=== PATIENT | female | born 1935 | race Caucasian/White ===

== ENCOUNTER → 2016-07-08 | Outpatient (CLI) | payer OTHER | LOC: BMCIMAGING 11:18 | DX: Z12.31 Encounter for screening mammogram for malignant neoplasm of breast (principal) | CPT/HCPCS: G0202 ==

== ENCOUNTER → 2017-03-03 | Outpatient (CLI) | payer OTHER | LOC: BMCIMAGING 13:24 | PROVIDERS: ATTEND Internal Medicine | DX: J44.9 Chronic obstructive pulmonary disease, unspecified (principal) ==

== ENCOUNTER 2017-07-20 13:33 | Inpatient (IN) | payer OTHER ==
--- NOTE | 2017-07-20 14:23 | EDPHY ---
General - History Smoking Status: Never smoked Time Seen by Provider: 07/20/17 14:06 Narrative: CHIEF COMPLAINT: Fall, head injury, hip pain HISTORY OF PRESENT ILLNESS: Patient presents with friends at bedside. She reports that she was walking in her driveway after returning from the store. She says she tripped on a CT, landing on the concrete. She says she landed on her back, right hip and and then her head. She denies any loss of consciousness, headache, neck pain, chest , back or abdominal pain. She does have a laceration to the right scalp that she did not notice until the blood was dripping. She has mild right hip pain but has ambulated with her friends without difficulty, per friends at bedside. She has no nausea or vomiting. She has no visual disturbance. She has no pain in the extremities. Tetanus is up-to-date. No other associated complaints or modifying factors. REVIEW OF SYSTEMS: Ten systems reviewed and are negative unless otherwise noted in the HPI PCP: Dr. Quita Gutierrez SPECIALISTS: Rheumatology PAST MEDICAL HISTORY: Severe Rheumatoid arthritis, hypertension PAST SURGICAL HISTORY: No recent surgeries SOCIAL HISTORY: Never smoker. Lives here independently. FAMILY HISTORY: Noncontributory EXAMINATION General Appearance: Alert, no distress Head: normocephalic. Right parietal scalp laceration and abrasion with hematoma. No depression. No Rajan sign. No raccoon eyes. Eyes: Pupils equal and round, no conjunctival pallor or injection. EOMs symmetric. ENT, Mouth: Mucous membranes moist Neck: Normal inspection, supple, no bony tenderness. No crepitus. Respiratory: Lungs are clear to auscultation Cardiovascular: Regular rate and rhythm. No murmur Gastrointestinal: Abdomen is soft and nontender Back: non-tender, no bony abnormalities Neurological: GCS 15. A&O, nonfocal, strength is symmetric in all 4 limbs. Skin: Warm and dry, right parietal scalp laceration measuring 3 cm. No exposure of the galea. No foreign body. No pulsatile bleeding. Extremities: Significant swan neck deformities of both hands. Nodular changes of the extremities consistent with her rheumatoid arthritis. Range of motion of the upper and lower extremities are symmetric without difficulty or hesitation. There is no point tenderness of the shoulders, elbows, wrists, hips , ankles or knees. Psychiatric: Mood and affect normal DIFFERENTIAL DIAGNOSES: Including but not limited to intracranial hemorrhage, subdural hematoma, concussion, scalp laceration, sprain, strain, fracture, dislocation MDM: 2:20 p.m. Mechanical fall just prior to arrival with closed head injury, right parietal hematoma and superficial laceration. Tetanus is reportedly up-to-date. She is in no acute distress with a normal neuro examination. I have ordered CT scans of the head cervical spine. I have ordered a hip x-ray. She is in no acute distress. We will irrigate the laceration re-evaluate for the possibility of needing closure 3:00 p.m. Patient re-evaluated. She is alert to person but disoriented to location. No focal findings otherwise. 3:40 p.m. Notified by radiologist Dr. Crook. Findings from the CT scan of the head were discussed, including subdural subarachnoid hemorrhage. I had already reviewed these images and contacted Neurosurgery and neurosurgery will evaluate the patient shortly. I have re-evaluated the patient this time. The scalp laceration has been irrigated and there is no repairable wound. This is a large area of superficial abrasion but no puncture laceration. 3:[address] Rosen is at bedside. He has evaluated the patient and reviewed the images. He feels that the cervical spine findings are not necessarily acute and has verbalized that the patient may be placed in a soft collar for comfort if needed. He feels the patient will need at least a step-down unit bed for frequent neuro checks. He reports that the patient is now disoriented to location but follows commands well with no other focal findings. 4:[address] Partida is evaluating the patient. 4:[address] Partida has evaluated the patient and reviewed the images. He does not feel the patient has any orthopedic fractures clinically. He feels the patient is appropriate for neurosurgery admit with trauma consultation. 4:25 p.m. Notified by RN that the patient's pressure has increased to systolic greater than 200 with diastolic greater than 100. I discussed this with neurosurgery PA as well as the admission. Neurosurgery PA has agreed to admit the patient to their service and has requested Cardene drip, titrate for systolic of 140 mm mercury. I have changed the bed orders to reflect this and I have ordered a Cardene drip. I initially thought the patient be appropriate for Step-Down Unit , but I have been notified by the [facility] that the patient will need an ICU bed. She has been admitted in stable condition on a quality assurance monitor with Cardene be initiated at this time. SUPERVISION: Patient was independently examined, but I discussed the case with my secondary supervising physician Dr. Tyler (Kevon Macias) Medical Decision Makin:50 p.m. I discussed the case with Dr. Vick from Orthopedics who will consult. The patient will be weight-bearing as tolerated for now. (Nelson Tyler) - Diagnostics Imaging Results: Imaging Impressions Cervical Spine CT 07/20/17 14:23 Impression: 1. Equivocal nondisplaced avulsion fracture from the right inferior articular facet of C3 (the left C3 and C4 facets are fused). 2. Multilevel degenerative changes and spondylolistheses as above, with apparent severe spinal canal narrowing at C2-C3, with possible cord compression. MRI is recommended for further evaluation. 3. Carotid atherosclerosis. 4. Additional findings as above. Findings discussed with Kevon Macias PA-C on July 20, [address] 07/20/17 14:23 Impression: 1. 2.3 cm intraparenchymal hemorrhage in the left temporal lobe. 2. Moderate left subarachnoid hemorrhage most prominent in the left temporal lobe. 3. Small left frontotemporal subdural hematoma extending over the tentorium, measuring up to 4 mm without midline shift. 4. Additional findings as above. Findings discussed with Kevon Macias on 07/20/2017 at 15:47. Hip X-Ray 07/20/17 14:25 Impression: 1. Nondisplaced fractures suspected right inferior pubic ramus and possibly right superior pubic ramus adjacent to the acetabulum. 2. Left total hip replacement in good position and alignment. 3. Pseudoarticulation left transverse process of L5 with the upper sacrum. Findings discussed with Kevon Macias PAC at 14:57 hour, 07/20/2017. Pelvis CT 07/20/17 14:59 Impression: Nondisplaced fracture right inferior pubic rami and question subtle buckle fracture in the superior pubic rami. Other chronic findings as above. Results discussed with Dr. Nelson Tyler on 20 Jul 2017 at 1550 hours. - Objective Vital Signs: Initial Vital Signs Temperature (C) 37.1 C 07/20/17 13:41 Heart Rate 93 07/20/17 13:41 Respiratory Rate 18 07/20/17 13:41 Blood Pressure 166/96 H 07/20/17 13:41 O2 Sat (%) 93 07/20/17 13:41 O2 Delivery Mode Room Air Allergies/Adverse Reactions: No Known Allergies Allergy (Unverified 07/20/17 13:40) Home Medications: Medication Instructions Recorded Lisinopril [Zestril 10 mg (*)] 10 mg PO DAILY 07/20/17 predniSONE 5 mg PO DAILY 07/20/17 Laboratory Results: Laboratory Results 07/20/17 15:55 07/20/17 15:55 07/20/17 07/20/17 07/20/17 15:55 15:55 15:55 WBC 20.26 10^3/uL H 10^3/uL (3.80-9.50) RBC 4.18 10^6/uL 10^6/uL (4.18-5.33) Hgb 12.9 g/dL g/dL (12.6-16.3) Hct 38.7 % % (38.0-47.0) MCV 92.6 fL fL (81.5-99.8) MCH 30.9 pg pg (27.9-34.1) MCHC 33.3 g/dL g/dL (32.4-36.7) RDW 15.3 % H % (11.5-15.2) Plt Count 293 10^3/uL 10^3/uL (150-400) PT 13.1 SEC SEC (12.0-15.0) INR 0.97 (0.83-1.16) APTT 23.4 SEC SEC (23.0-38.0) Sodium 140 mEq/L mEq/L (135-145) Potassium 3.9 mEq/L mEq/L (3.3-5.0) Chloride 101 mEq/L mEq/L (97-110) Carbon Dioxide 25 mEq/l mEq/l (22-31) Anion Gap 14 mEq/L mEq/L (8-16) BUN 20 mg/dL mg/dL (7-23) Creatinine 0.5 mg/dL L mg/dL (0.6-1.0) Estimated GFR > 60 Glucose 105 mg/dL H mg/dL (70-100) Calcium 9.4 mg/dL mg/dL (8.5-10.4) Medications Given: Nicardipine/Sodium Chloride (Cardene 0.1 Mg/Ml (Premix)) 200 mls @ 0 mls/hr IV CONT SAMANTHA; Titrate PRN Reason: Protocol Stop: 01/16/18 16:29 Last Admin: 07/20/17 16:41 Dose: 200 mls Departure - Departure Disposition: [facility] Acute Clinical Impression: Traumatic subarachnoid hemorrhage Qualifiers: Encounter type: initial encounter Loss of consciousness presence/duration: without LOC Qualified Code(s): S06.6X0A - Traumatic subarachnoid hemorrhage without loss of consciousness, initial encounter Traumatic subdural hematoma Qualifiers: Encounter type: initial encounter Loss of consciousness presence/duration: without LOC Qualified Code(s): S06.5X0A - Traumatic subdural hemorrhage without loss of consciousness, initial encounter Fall Qualifiers: Encounter type: initial encounter Qualified Code(s): W19.XXXA - Unspecified fall, initial encounter Hypertension Qualifiers: Hypertension type: unspecified Qualified Code(s): I10 - Essential (primary) hypertension Condition: Fair
[2017-07-20] MEDS ORDERED: MAGNESIUM HYDROXIDE 30 ML UDCUP PO PRN (16:20)
[2017-07-20] MEDS ORDERED: ACETAMINOPHEN 325 MG TAB PO PRN (16:20)
[2017-07-20] MEDS ORDERED: ONDANSETRON 4 MG/2 ML VIAL IVP PRN (16:20)
[2017-07-20] MEDS ORDERED: POLYETHYLENE GLYCOL 3350 17 GM PKT PO PRN (16:20)
[2017-07-20] MEDS ORDERED: ONDANSETRON DISINTEGRATING 4 MG TAB PO PRN (16:20)
[2017-07-20] MEDS ORDERED: BISACODYL 10 MG SUPP PR PRN (16:20)
[2017-07-20] MEDS ORDERED: LACTULOSE 20 GM/30 ML UDCUP PO PRN (16:20)
[2017-07-20] MEDS ORDERED: NS 1,000 ML IV SCH (16:30)
[2017-07-20] MEDS ORDERED: niCARdipine/NACL 200 ML IV SCH (16:30)
[2017-07-20 16:46] LABS: INR 0.97 (0.83-1.16); PROTIME(PATIENT) 13.1 SEC (12.0-15.0)
--- NOTE | 2017-07-20 16:47 | GCON ---
[f rep st] CONSULTATION CHIEF COMPLAINT: Confusion. PRESENT ILLNESS: This 82-year-old female tripped over her neighbor's cat, landed on her back and her head, and sustained a closed head injury. A CT scan at [facility] reveals moderatel y significant subarachnoid hemorrhage, particularly left temporal lobe. The patient is conversive an d fluent; however, is having some degree naming objects or retrieving particular facts. She is [place] as to the month, date, and year, but cannot identify the facility as [facility], and when confronted with my pen, could not name the object or describe what it was used for. She has already been seen by Neurosurgery who will admit her. There was initially a question of a concomita nt pelvic fracture read by the radiologist. PAST MEDICAL HISTORY: Relevant for use of aspirin but no other anticoagulant and she has a long list of medications. PHYSICAL EXAM: GENERAL: A pleasant, conversive female. HEENT: [place], EOMI, tongue protrudes in the midline. NECK: I took her C-collar off as her neck is completely nontender. She denies pain, and b y palpation, I could not elicit any pain. LUNGS: Clear. HEART: Normal S1, S2. CHEST WALL: Stable to compression. Sternum stable to compression. No supraclavicular nor axillary crepitance. EXTREM ITIES: Upper extremities are remarkable for severe deformities in both hands from rheumatoid arthrit is. ABDOMEN: Soft, benign. No masses. No tenderness. PELVIS: Stable, particularly the right sup erior pubic ramus area is palpated. The ischial spines were palpated. The pelvis is compressed in e very direction I can, eliciting zero pain. The patient moves both legs freely and holds them against resistance. I do not believe the fractures identified by the radiologist are true fractures. ASSESSMENT: Isolated closed head injury in an elderly female, only on aspirin as an anticoagulant. RECOMMENDATIONS: Admission and treatment per Neurosurgery. The General Surgical Service has little to add in this case. /[id number]/MODL
--- NOTE | 2017-07-20 17:43 | GHP ---
[f rep st] HISTORY AND PHYSICAL DATE OF ADMISSION: 07/20/2017 Patient seen in the emergency department, both by myself and Dr. Rosen, at 1548 in Room 8 at [facility] on 07/20/2017. CHIEF COMPLAINT: Spinal head injury with hip pain. HISTORY OF PRESENT ILLNESS: The patient is an 82-year-old female who presents to the emergency department. She was walking in her driveway after returning from a store. Her son says that she was trying to feed a neighborhood cat when she tripped and landed on the concrete. She states that she landed on her back , right hip, and then her head. There was no loss of consciousness, and she denies any headache or neck pain. No chest pain, back pain, or abdominal pain. She does have a laceration in the right scalp that was repaired via emergency room staff. She also complains of some right hip pain. Per her friends at her bedside, there was no loss of consciousness. She has no nausea or vomiting. No changes in her vision. She is moving all of her extremities. She does have a significant history for rheumatoid arthritis. Her immunizations are up to date. Patient denies any upper extremity or lower extremity complaints of numbness, tingling, or weakness. She was awake and alert. REVIEW OF SYSTEMS: Complete 10-point review of systems is negative, otherwise noted in the HPI. PRIMARY CARE PROVIDER: Quita Gutierrez MD. PAST MEDICAL HISTORY: Significant for: 1. Rheumatoid arthritis. 2. Hypertension. PAST SURGICAL HISTORY: No recent surgeries listed. MEDICATIONS: Please see med reconciliation form. ALLERGIES: No known drug allergies. FAMILY HISTORY: Reviewed. Noncontributory. SOCIAL HISTORY: Patient is 82 years of age. She is . She lives here in [place]. PHYSICAL EXAMINATION: GENERAL: This is an awake, alert, oriented female, in no acute distress. VITAL SIGNS: Most recent vital signs, blood pressure 218/ 96 with a MAP of 136, heart rate of 108, 91% on room air, temperature 36 degrees. HEENT: Head is normocephalic, atraumatic except for laceration noted to the right scalp. Pupils are equal, round, and reactive to light. EOMI is intact. Full visual pfeiffer by confrontation. Ears are patent. Nose is patent. NECK: Soft and supple. No midline tenderness. Range of motion was not tested due to collar in place. RESPIRATORY and CARDIAC: Deferred. ABDOMEN : Soft, nontender. No peritoneal signs. and RECTAL: Deferred. NEURO: Patient is awake, alert, oriented to name and date, as well as year, but not to the name of her location at [facility]. Cranial nerves 2-12 are grossly intact. Motor: Patient has 5/5 strength in all muscle groups of bilateral upper and lower extremities, to include deltoids, biceps, triceps, brachioradialis, wrist flexion and extensors, golf shoe spike assembler, intrinsic fingers, iliopsoas , quadriceps, hamstring, plantar flexion, dorsiflexion, EHL testing. Sensation is intact to light touch throughout all dermatome distributions upper and lower extremities. Negative straight leg raise. Negative BART test. Reflexes of biceps, triceps, brachioradialis, knee jerk, and ankle jerk, 2+/4. Toes are downgoing bilaterally. MEDICAL DECISION MAKING/DIAGNOSTIC STUDIES: Laboratory tests obtained, 2017, shows a white count of 20.26 with an H and H of 12.9 and 38.7, platelet count of 293. Coags are pending. Chemistry on 07/20/2017: Sodium 140, potassium 3.9, chloride 101, CO2 25. BUN 20, creatinine 0.5, and a glucose of 105. IMAGING: CT scan of the cervical spine obtained 07/20/2017 shows an equivocal, nondisplaced avulsion fracture of the right inferior articular facet of C3. The left C3 and C4 facets are fused. Multilevel degenerative changes and spondylolisthesis noted. There is also spinal canal narrowing at C2-3. Noted carotid arterial sclerosis. CT scan of the head, obtained 07/20/2017, shows a 2.3 cm intraparenchymal hemorrhage in the left temporal lobe. There is moderate left subarachnoid hemorrhage, most prominent left temporal lobe. Small left frontotemporal subdural hematoma, extending of the tentorium, measuring up to 4 mm without midline shift. Hip x-ray obtained 07/20/2017 shows a nondisplaced fracture suspected of the right inferior pubic ramus and possibly right superior pubic ramus, adjacent to the acetabulum, status post left total hip replacement. CT scan of the pelvis, obtained 07/20/2001, shows nondisplaced fracture of the right inferior pubic rami and questionable subtle buckle fracture of the superior pubic rami. Pending repeat CT scan brain in am. ASSESSMENT: 1. Mechanical trip and fall. 2. History of severe rheumatoid arthritis. 3. History of hypertension. 4. Nondisplaced fractures of the right inferior pubic rami and questionable subtle buckle fracture of the superior pubic rami. 5. A CT scan of the cervical spine demonstrating possible nondisplaced avulsion fracture of C3 with noted C2-3 stenosis and fusion of C3-4. 6. 2.3 cm intraparenchymal hemorrhage left temporal lobe, moderate left subarachnoid hemorrhage, most prominent left temporal lobe. Small left frontotemporal subdural hematoma. PLAN/DISCUSSION: The patient is an 82-year-old female who will be admitted to Neurosurgery. She was seen and evaluated in the emergency department by Dr. Partida as well. She has a 2.3 cm intraparenchymal hemorrhage and a small left frontal temporal subdural hematoma. I recommended q.1 hour neuro checks. Repeat a CT scan in the a.m. per Dr. Rosen. No Keppra is warranted at this time. Patient does have equivocal fracture of C3. She was placed in a cervical collar, at least overnight. Soft collar per Dr. Rosen's recommendation. She also has pubic rami fractures that will be evaluated by Dr. Partida. Will admit her to the ICU with q.1 hour neuro checks. Recheck a CT scan in the a.m., sooner if neuro status changes. She will continue with a collar. We will place her on Cardene to keep her blood pressure less than 140. All questions and concerns were answered. She understands and agrees. Patient was seen by myself and Dr. Rosen in the emergency department at 1548 on 10/20/2017. Her son was present during the examination history. /[id number]/MODL MTDD
[2017-07-20 17:46] LABS: PLATELET COUNT 180 10^3/uL (150-400)
--- NOTE | 2017-07-20 21:49 | GCON ---
[f rep st] CONSULTATION INTERNAL MEDICINE CONSULTATION DATE OF CONSULTATION: 07/20/2017 REFERRING PHYSICIAN: Jimenez Beck PA-C REASON FOR CONSULTATION: Medical opinion regarding blood pressure management in the setting of intra parenchymal hemorrhage. HISTORY: Patient is an 82-year-old female with severe rheumatoid arthritis, although she lives indep endently and does very well at baseline. 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 Walking back up her driveway t o her home from the grocery store, she tripped over her neighbor's cat landing on her back and then h itting her right hip and her head. She denies any loss of consciousness. She did have a laceration to her right scalp, but that was irrigated in the emergency room, and no sutures were needed, and it is just a superficial abrasion. Her head CT, however, shows subdural hematoma with subarachnoid hemo rrhage and intraparenchymal hemorrhage. According to her son, who was at bedside, she is not at her baseline mental status and he is noticing some expressive aphasia and memory changes. She is current ly retaining 700 cc of urine in her bladder, and she may get a Perez catheter here shortly. She is o n an IV Cardene drip for blood pressure control and going to ICU. She is in a soft cervical collar p er Neurosurgery. She is otherwise without complaint. PAST MEDICAL HISTORY: 1. Severe rheumatoid arthritis. She follows with Dr. Moser. She gets regular infusions in his offic e. 2. Hypertension. MEDICATIONS: Please see computer for full detailed list. ALLERGIES: No known drug allergies. SOCIAL HISTORY: No smoking. Occasional alcohol. She lives in a condominium alone. Her son lives 2 blocks away. Very functional and independent at baseline. REVIEW OF SYSTEMS: Complete review of systems obtained. Review of systems negative on constitutiona l, HEENT, GI, pulmonary, cardiovascular, , hematology, skin, muscular, endocrine, psych except for positives and negatives as noted in HPI. FAMILY HISTORY: Reviewed, noncontributory to presenting complaint. PHYSICAL EXAMINATION: GENERAL: Well-developed, well-nourished female, in no acute distress. VITAL SIGNS: Temperature 37.1, pulse 108, blood pressure 218/96, 92% on room air. EYES: Normal conjuncti vae. Pupils react to light. ENT: Normal ears, nose. Hearing intact. Normal teeth. Oropharynx mo ist. NECK: Trachea midline. No thyromegaly. CHEST: Normal respiratory effort. LUNGS: Clear to auscultation bilaterally. CARDIOVASCULAR SYSTEM: Tachycardic. No murmur. No lower extremity edema . ABDOMEN: Soft, nontender. No hepatosplenomegaly. SKIN: Warm, dry, intact. No rash. MUSCULOSK ELETAL: Severe RA changes to her bilateral hands. Strength is 5/5, upper and lower extremities. No rmal sensation. Cranial nerves intact. PSYCH: She is awake, alert, appropriate in conversation, pl easant, smiling but definitely with evidence of expressive aphasia. Getting frustrated trying to tel l me the story of what happened earlier today. LAB: White count 20.26, hematocrit 38.7, platelets 293. Sodium 140, potassium 3.9, chloride 101, bi carb 25, BUN 20, creatinine 0.5, glucose 105. Head CT shows a 2.3 cm intraparenchymal hemorrhage in the left temporal lobe also with evidence of subarachnoid hemorrhage and subdural hematoma. Cervical spine shows severe cervical spinal stenosis with possible cord compression. Pelvis CT shows a right inferior pubic ramus fracture. This case was discussed with Dr. Tyler in the emergency room [facility] consultations that have been placed. ASSESSMENT/PLAN: 1. Traumatic intraparenchymal hemorrhage with subdural hematoma and subarachnoid hemorrhage. The pa malaika is admitted to ICU with q.1 hour neuro checks. Repeat head CT scheduled for tomorrow morning. 2. Severe hypertension. She has been placed on IV Cardene drip. We can also resume her usual lisin opril. 3. Pubic ramus fracture. Orthopedic Surgery will see her in consultation. It is likely to be non o perative, and she will weight bear as tolerated. 4. Rheumatoid arthritis, on chronic prednisone as well as infusions regularly in the rheumatoid offi ce. She is therefore relatively immunosuppressed, although I do not see any evidence of infection at this time. 5. Equivocal C3 fracture. Per Neurosurgery, cervical spine findings may be chronic and not acute. She also has severe cervical spine stenosis with cord compression. They are currently recommending a soft collar. 6. Urinary retention, 700 cc currently in the bladder. We are going to give her 1 more attempt to u rinate. If she does not, we will place a Perez. This is concerning with evidence of possible cord c ompression, but Neurosurgery is aware. 7. Cognitive changes secondary to the acute bleed. She will need speech therapy for cognition. Thank you very much for this consultation. Internal Medicine will continue to follow her while she r millieins hospitalized. /[id number]/MODL
[2017-07-20] MEDS: SENNOSIDES/DOCUSATE SODIUM TAB PO SCH (21:56)
[2017-07-21 05:17] LABS: PLATELET COUNT 247 10^3/uL (150-400)
--- NOTE | 2017-07-21 07:54 | NEUSURGPN ---
Assessment/Plan: Assessment: 82 yr old female s/p fall with C3 facet fracture, left temporal contusion and pubic rami fracture Plan: -CT cervical spine demonstrates equivocal non-displaced avulsion fraction from right inferior articular facet of C3 (C3 and C4 facets are fused) -CT brain 07/20 demonstrates 2.3cm intraparenchymal hemorrhage in the left temporal lobe. CT brain 07/21 shows minimal increase of left temporal hemorrhage. Patient is neurologically stable with clear, oriented speech. -Will keep in soft collar for 8 weeks -PT/OT -Case management to eval for dispo options -Patient discussed with Dr Rosen -Please call neurosurgery with questions/concerns Subjective: Patient denies neck pain or UE symptoms Objective: AxO x3 VSS Clear speech CN 2-12 grossly intact 5/5 BUE, BLE-bilateral hand exam limited related to severe RA Neuro Check Frequency: per routine Urinary Catheter in Place: No - Physician Discussed Patient with : [facility] Physical Exam - Vitals, I&O, Labs I and O 07/20/17 07/21/17 07/22/17 05:59 05:59 05:59 Intake Total 492 Output Total 1 Balance 491 Weight 44.4 kg Intake: Oral (ml) 200 IV Infused (ml) 292 niCARdipine/NACL 200 ml @ 292 Titrate IV CONT SAMANTHA Rx#: [id number] Output: Liquid Stool (ml) 1 Toilet 1 Other: Number of Voids Toilet 2 Vital Signs Temp Pulse Resp BP Pulse Ox 36.7 C 77 14 114/44 L 94 07/21/17 00:00 07/21/17 06:00 07/21/17 06:00 07/21/17 06:00 07/21/17 06:00 Laboratory Results 07/21/17 04:20 07/21/17 04:20 ICD10 Worksheet Patient Problems: Problems Problem Status Onset Fall Acute Hypertension Acute Traumatic subarachnoid hemorrhage Acute Traumatic subdural hematoma Acute
[2017-07-21] MEDS: SENNOSIDES/DOCUSATE SODIUM TAB PO SCH ×2 (08:48→19:48)
[2017-07-21] MEDS: LISINOPRIL 10 MG TAB PO SCH (08:48)
[2017-07-21] MEDS: predniSONE 5 MG TAB PO SCH (08:48)
[2017-07-21] MEDS: HYDROCODONE/APAP 5/325 TAB PO PRN ×4 (08:51→23:53)
--- NOTE | 2017-07-21 11:30 | PDMN ---
Medical Necessity Medical necessity: est los>2mn for intraparenchymal hemorrhage and sm L frontal temporal SDH, equivocal C3 fx, spinal canal narrowing C2-3 pubic ramus fx, cognitive changes, and severe htn, s/p mechanical fall; admit to ICU, hourly neuro checks, cervical collar, IV Cardene gtt, and ST; per order and H&P, IM consult 07/20/17
--- NOTE | 2017-07-21 12:05 | ASMTCMCOM ---
CM Note CM Note Notes: Patient admitted after a mechanical fall. She has a pubic rami fracture (to be seen by surgery) and a nondisplaced C3 fracture, as well as an intraparenchymal hemorrhage of the left temporal lobe and a moderate left subarachnoid hemorrhage (followed by neurosurgery). She lives alone and is very well supported by her son Susi and his family. She will require rehab, in the form of SNF or inpatient acute. We will wait for evaluations to proceed with discharge planning. Date Signed: 07/21/2017 12:05 PM Electronically Signed By:Lindsay Mann RN
--- NOTE | 2017-07-21 12:16 | GCON ---
[f rep st] CONSULTATION ORTHOPEDIC CONSULTATION DATE OF CONSULTATION: 07/21/2017 REASON FOR CONSULTATION: Pelvic fracture. HISTORY OF PRESENT ILLNESS: This is an 82-year-old female who presented to the emergency department. States she tripped over a neighborhood cat while carrying groceries into her house, landing on her right side and hitting her head. She denies loss of consciousness, amnesia, headache, or neck pain. She is not complaining of any hip or pelvic pain this morning. She has been ambulating without assi stive devices. She denies numbness or tingling radiating down the lower extremity. Her son is at he r bedside and states that there is some difficulty with finding words, however, denies fevers, chills , nausea, vomiting, chest pain, shortness of breath. REVIEW OF SYSTEMS: Complete 10-point review of systems negative, otherwise noted in HPI. PAST MEDICAL HISTORY: Significant for rheumatoid arthritis and hypertension. PAST SURGICAL HISTORY: Includes a left hip hemiarthroplasty and a right total knee arthroplasty. MEDICATIONS: The patient does receive Rituxan infusions every 5 months for her rheumatoid arthritis. Other medications, please see the medication reconciliation form. ALLERGIES: None. FAMILY HISTORY: Noncontributory. SOCIAL HISTORY: Patient lives alone. . PHYSICAL EXAM: GENERAL: She is awake, alert, oriented x3. No acute distress. VITAL SIGNS: Stable . Currently, blood pressure is 126/55, heart rate 77, respiratory rate 14, 94% O2 saturation on room air. RESPIRATORY: She has easy, nonlabored breathing. ABDOMEN: Soft, nontender abdomen. MUSCULO SKELETAL: She is able to internally and externally rotate her hip to 45 of external and 40 of internet developer al while in a seated position without any pain. NEUROLOGICAL: She has sensation intact to light howard ch from L3-S1. Motor intact to EHL, FHL, tibialis anterior, gastrocsoleus. Has palpable DP and PT p ulses. No significant tenderness to palpation about the pelvis or hip. IMAGING: CT and x-ray consistent with nondisplaced inferior pubic ramus fracture and superior pubic ramus fracture extending into the anterior column of the acetabulum, incomplete and nondisplaced. Th e left hip hemiarthroplasty appears stable without fracture. ASSESSMENT AND PLAN: Acxbse-wozm-atns-old female with a mechanical fall with an intraparenchymal lef t temporal lobe hemorrhage, moderate left-sided subarachnoid hemorrhage, small left frontal temporal subdural hematoma, as well as nondisplaced avulsions of C3, with stenosis at C2-3 and a fusion at C3- 4. From an orthopedic standpoint, her fractures are a stable pattern. She may weightbear as tolerat ed. She is currently asymptomatic regarding these fractures. We will have her work with Physical Th erapy and ambulate as tolerated. Follow up with me in the office in 2-3 weeks. The patient and son understand and agree with the treatment plan. Questions were answered. /[id number]/MODL
--- NOTE | 2017-07-21 15:16 | HOSPPROG ---
Hospitalist Progress Note Assessment/Plan: #Traumatic IPH/SDH/SAH -minimal increase in hemorrhage, but clinically stable. Some expressive aphasia -cont PT/OT/speech #Hypertensive urgency -initially required Nicardipine. BP now stable on home Lisinopril #RA: on chronic steroids #Pubic ramus fracture: Dr Vick evaluated. Weight-bear as tolerated. FU in 2 weeks #Equivocal C3 fracture: soft collar x 8 weeks #Urinary retention: in ED. Now voiding on own #Diet: regular #DVT ppx: SCDs #Disp: cont inpatient admission for PT/OT. May need SNF at [place]. Plan discussed with son, Dr. Watkins and ICU team Subjective: per son, speech improved today Objective: Vital Signs Temp Pulse Resp BP Pulse Ox 36.5 C 99 18 108/56 L 97 07/21/17 12:00 07/21/17 12:00 07/21/17 12:00 07/21/17 12:00 07/21/17 12:00 Laboratory Results 07/21/17 04:20 07/21/17 04:20 07/20/17 07/21/17 07/22/17 05:59 05:59 05:59 Intake Total 492 Output Total 1 Balance 491 PT 13.1 SEC (12.0-15.0) 07/20/17 15:55 INR 0.97 (0.83-1.16) 07/20/17 15:55 - Time Spent With Patient Time Spent with Patient: greater than 35 minutes Time Spent with Patient: Greater than 35 minutes spent on this patients care, greater than 50% of time spent counseling, educating, and coordinating care regarding the above mentioned plan. - Physical Exam Constitutional: no apparent distress Eyes: PERRL Ears, Nose, Mouth, Throat: moist mucous membranes, other (soft collar in place) Cardiovascular: regular rate and rhythym Respiratory: no respiratory distress Gastrointestinal: normoactive bowel sounds Genitourinary: no bladder fullness, No blake in urethra Skin: warm Musculoskeletal: full muscle strength, other (swan-neck defomities of hands) Neurologic: AAOx3, CN II-XII Intact, other (expressive aphasia) Psychiatric: interacting appropriately ICD10 Worksheet Patient Problems: Problems Problem Status Onset Fall Acute Hypertension Acute Traumatic subarachnoid hemorrhage Acute Traumatic subdural hematoma Acute
[2017-07-22] MEDS: HYDROCODONE/APAP 5/325 TAB PO PRN (07:25)
--- NOTE | 2017-07-22 07:45 | NEUSURGPN ---
Assessment/Plan: Assessment: 82 yr old female s/p fall with C3 facet fracture, left temporal contusion and pubic rami fractures Plan: -CT cervical spine demonstrates equivocal non-displaced avulsion fraction from right inferior articular facet of C3 (C3 and C4 facets are fused) -recommend soft cervical collar for 8 weeks -CT brain 07/20 demonstrates 2.3 cm intraparenchymal hemorrhage in the left temporal lobe. CT brain 07/21 shows minimal increase of left temporal hemorrhage. Patient is neurologically stable with clear speech with word finding difficulty -Will check CT head this am-ordered and if stable may be able to transfer to floor -PT/OT/ST-CPM -Case management to eval for dispo options -Patient discussed with Dr Rosen -Please call neurosurgery with questions/concerns Subjective: Awkae and alert. NAD. Eating/drinking and voiding. No f/c/n/v/d. No olivarez/neck/ chest/abd or gu complaints. Objective: AxO x3, PERRLA/EOMI no droop VSS Clear speech but with continued word finding difficulty CN 2-12 grossly intact 5/5 BUE, BLE-bilateral hand exam limited related to severe RA Neuro Check Frequency: per routine Urinary Catheter in Place: No - Physician Discussed Patient with : [facility] Physical Exam - Vitals, I&O, Labs I and O 07/21/17 07/22/17 07/23/17 05:59 05:59 05:59 Intake Total 492 800 Output Total 1 2 Balance 491 798 Weight 44.4 kg Intake: Oral (ml) 200 800 IV Infused (ml) 292 niCARdipine/NACL 200 ml @ 292 Titrate IV CONT SAMANTHA Rx#: [id number] Output: Urine (ml) 2 Toilet 2 Liquid Stool (ml) 1 Toilet 1 Other: Number of Voids Toilet 2 3 Vital Signs Temp Pulse Resp BP Pulse Ox 37.0 C 73 21 H 85/23 L 95 07/21/17 19:05 07/22/17 04:00 07/22/17 04:00 07/22/17 04:00 07/22/17 04:00 Laboratory Results 07/21/17 04:20 07/21/17 04:20 ICD10 Worksheet Patient Problems: Problems Problem Status Onset Fall Acute Hypertension Acute Traumatic subarachnoid hemorrhage Acute Traumatic subdural hematoma Acute
[2017-07-22] MEDS: predniSONE 5 MG TAB PO SCH (10:46)
[2017-07-22] MEDS: LISINOPRIL 10 MG TAB PO SCH (10:47)
[2017-07-22] MEDS: SENNOSIDES/DOCUSATE SODIUM TAB PO SCH (10:47)
--- NOTE | 2017-07-22 14:29 | ASMTLACE ---
LACE Length of stay for Answers: 2 days current admission Acuity / Level of Answers: Yes Care: Did the patient have an inpatient admission? Comorbidities - select Answers: Other Notes: Traumatic subarachnoid all that apply hemorrhage # of Emergency department Answers: 1-2 visits in the last 6 months Score: 7 Date Signed: 07/22/2017 02:28 PM Electronically Signed By:Caridad Watkins LCSW
--- NOTE | 2017-07-22 15:34 | PDIAF ---
- Diagnosis Diagnosis: Intraparenchymal brain hemorrhage, traumatic, C3 fracture Code Status: Full Code - Medication Management Discharge Medications: Medications to Continue on Transfer Lisinopril [Zestril 10 mg (*)] 10 mg PO DAILY 07/20/17 [Last Taken Unknown] predniSONE 5 mg PO DAILY 07/20/17 [Last Taken Unknown] Acetaminophen [Tylenol 325mg (*)] 650 mg PO Q4HRS PRN tab 07/22/17 [Last Taken Unknown] Hydrocodone/APAP 5/325 [[place] 5/325 (*)] 1 - 2 tab PO Q4HRS PRN tab 07/22/17 [ Last Taken Unknown] Ondansetron Odt [Zofran Odt 4 mg (*)] 4 mg PO Q4HRS PRN tab 07/22/17 [Last Taken Unknown] Polyethylene Glycol 3350 [Miralax 17 gm (*)] 17 gm PO DAILY PRN pkt 07/22/17 [ Last Taken Unknown] Sennosides/Docusate Sodium [Senokot-S] 1 - 2 tab PO BID tab 07/22/17 [Last Taken Unknown] Discharge Medications: Refer to the Discharge Home Medication list for PRN reason. - Orders Services needed: Registered Nurse, Certified Instrumentation And Controls Technician, Master Agribusiness Professor , Physical Therapy, Occupational Therapy, Speech Language Pathologist Diet Recommendation: no restrictions on diet Diet Texture: Regular Texture Diet Activity/Weight Bearing Restrictions: Soft cervical collar for 8 weeks. Fall risk precautions Equipment: Soft cervical collar for 8 weeks - Follow Up Care Current Providers and Referrals: Bert Vick MD [Medical Doctor] - follow up in 2 weeks Qutia Gutierrez MD [Primary Care Provider] - As per Instructions
--- NOTE | 2017-07-22 15:35 | PDIAF ---
- Diagnosis Diagnosis: Intraparenchymal brain hemorrhage, traumatic, C3 fracture Code Status: Full Code - Medication Management Discharge Medications: Medications to Continue on Transfer Lisinopril [Zestril 10 mg (*)] 10 mg PO DAILY 07/20/17 [Last Taken Unknown] predniSONE 5 mg PO DAILY 07/20/17 [Last Taken Unknown] Acetaminophen [Tylenol 325mg (*)] 650 mg PO Q4HRS PRN tab 07/22/17 [Last Taken Unknown] Hydrocodone/APAP 5/325 [[place] 5/325 (*)] 1 - 2 tab PO Q4HRS PRN tab 07/22/17 [ Last Taken Unknown] Ondansetron Odt [Zofran Odt 4 mg (*)] 4 mg PO Q4HRS PRN tab 07/22/17 [Last Taken Unknown] Polyethylene Glycol 3350 [Miralax 17 gm (*)] 17 gm PO DAILY PRN pkt 07/22/17 [ Last Taken Unknown] Sennosides/Docusate Sodium [Senokot-S] 1 - 2 tab PO BID tab 07/22/17 [Last Taken Unknown] Discharge Medications: Refer to the Discharge Home Medication list for PRN reason. - Orders Services needed: Registered Nurse, Certified Rn Plastic Surgery, Master Travel Information Center Supervisor , Physical Therapy, Occupational Therapy, Speech Language Pathologist Diet Recommendation: no restrictions on diet Diet Texture: Regular Texture Diet Activity/Weight Bearing Restrictions: Soft cervical collar for 8 weeks. Fall risk precautions. Weight-bearing as tolerated on pelvic fracture Equipment: Soft cervical collar for 8 weeks - Follow Up Care Current Providers and Referrals: Bert Vick MD [Medical Doctor] - follow up in 2 weeks Quita Gutierrez MD [Primary Care Provider] - As per Instructions
--- NOTE | 2017-07-22 15:50 | PDDCSUM ---
Discharge Summary Discharge Summary: DISCHARGE DIAGNOSES: -status post mechanical fall with injuries -parenchymal intracranial hemorrhage, traumatic -facet fracture of C3 -pelvic fracture after a fall -gait instability - CONSULTANTS: Dr. Vick of Orthopedics Dr. Hermilo Rosen of Neurosurgery Dr. Alia Baeza of [facility] Medicine - hospital medicine service assume primary care after 2 days of hospitalization PROCEDURES: CT scans of head and cervical spine HOSPITAL COURSE SUMMARY: This patient is an 82-year-old woman who apparently tripped and fell on the day of admission. She has suffered injuries including intraparenchymal brain hemorrhage on the left, a facet fracture of the C3, and pelvic fracture which was stable and did not require any intervention. The patient at the time of her admission had an unremarkable neurologic exam, and did not develop any neurologic decompensation here. She had 3 CT scans of the head and during the time of her hospital stay there is no change in the intraparenchymal blood on those studies. Her cervical spine was felt to be overall stable but a soft collar is recommended for the next 8 weeks. In terms of her pelvic fracture, this was stable and she was okay for weight-bearing. She did bear some weight here with therapies but is still fairly debilitated in terms of walking due to pain and weakness. There been no signs of other acute illnesses. She has chronic rheumatoid arthritis which has been stable here. At this point she is felt medically stable for discharge from the acute care setting but needs ongoing rehabilitation. She will be transferred today to the inpatient rehabilitation unit at the [facility]. PENDING TEST RESULTS: None MEDICATION CHANGES: Addition of medicines as needed for pain and nausea FOLLOW-UP PLAN: Should be transferred today to the inpatient rehabilitation unit at [facility] There she will be under the care of the physiatry team along with the consultative internal medicine service CARE PLAN: It is recommended by the Neurosurgery team the patient uses soft cervical collar for 8 weeks Is recommended by the orthopedics team that the patient be weight-bearing as tolerated, and follow up with Dr. Bert Vick in 2 weeks Greater than 35 minutes bedside and care coordination time today
[2017-07-22 16:49] VITALS: BP 136/66
== END 2017-07-22 17:38 | DRG 964 ==
LOC: F2N 18:28
PROVIDERS: ADMIT Surgery; ATTEND Neurological Surgery
DX: S06.350A Traumatic hemorrhage of left cerebrum without loss of consciousness, initial encounter (principal); S32.501A Unspecified fracture of right pubis, initial encounter for closed fracture; S12.291A Other nondisplaced fracture of third cervical vertebra, initial encounter for closed fracture; S01.01XA Laceration without foreign body of scalp, initial encounter; W01.0XXA Fall on same level from slipping, tripping and stumbling without subsequent striking against object, initial encounter; I16.0 Hypertensive urgency; Y92.014 Private driveway to single-family (private) house as the place of occurrence of the external cause; M06.9 Rheumatoid arthritis, unspecified; R33.9 Retention of urine, unspecified; Z96.651 Presence of right artificial knee joint; Z96.642 Presence of left artificial hip joint; Z79.01 Long term (current) use of anticoagulants; Z79.82 Long term (current) use of aspirin
CPT/HCPCS: 92507-GN; 92523-GN; 97116-GP; 97161-GP; 97166-GO; 97530-GP; 97535-GO; G8978-GP-CJ; G8979-GP-CI; G8987-GO-CK; G8988-GO-CI; G9162-GN-CK; G9163-GN-CI; J2270; J2405; J7512

== ENCOUNTER 2017-07-22 18:10 | Inpatient (IN) | payer OTHER ==
[2017-07-22] MEDS ORDERED: ONDANSETRON DISINTEGRATING 4 MG TAB PO PRN (19:17)
--- NOTE | 2017-07-22 19:21 | PDOREHIP ---
Admission [facility] - Admission - 3 Day Assessment Period Admission Date/Day 1: 07/22/17 Day 2: 07/23/17 Day 3: 07/24/17 - Active Diagnoses Comorbidities and Co-existing Conditions at Admission: 32080. None of the Above - Skin Conditions Unhealed Pressure Ulcer (1 or more/Stage 1 or >)-Admission: 0. No
[2017-07-22] MEDS: SENNOSIDES/DOCUSATE SODIUM TAB PO SCH (20:43)
--- NOTE | 2017-07-22 20:45 | GHP ---
[f rep st] HISTORY AND PHYSICAL POST ADMISSION PHYSICIAN EVALUATION AND REHABILITATION TREATMENT PLAN DATE OF ADMISSION: 07/22/2017 DATE OF EVALUATION: 07/22/2017. TIME OF EVALUATION: 1835. REFERRING FACILITY: [facility]. IMPAIRMENT GROUP: 14.2. ETIOLOGIC DIAGNOSIS: Brain plus multiple fractures/amputation. DATE OF ONSET: 07/20/2017. REFERRING PHYSICIAN: Dr. Watkins. CONSULTING PHYSICIANS: She was seen in consultation by Orthopedic Surgery, Dr. Vick, Trauma Surgery, Dr. Partida, and Neurosurgery, Dr. Rosen. REHABILITATION DIAGNOSIS: Traumatic brain injury and cervical and pelvic fractures status post fall. DATE OF SURGERY: There was no surgery. HISTORY OF PRESENT ILLNESS: This patient is an 82-year-old woman who was admitted to [facility] on 07/20/2017 after a mechanical fall. She reports that she tripped over a neighbor's cat. She denies loss of consciousness. She was found to have a left temporal intraparenchymal hemorrhage and subdural hematomas in the left temporal and left frontotemporal areas. She had a nondisplaced avulsion fracture of the facet of C3 in the cervical spine, and imaging also showed spinal stenosis at C2 -3 and a fusion at C3-4. She had a right inferior pubic ramus fracture and possibly a fracture of the superior pubic ramus. The fractures were nonsurgical and she is to wear a soft cervical collar for 8 weeks or through September 13, 2017. She had an episode of urinary retention in the hospital but subsequently was able to void on her own. She had hypertension and initially was treated with nicardipine but subsequently was adequately controlled with her home lisinopril dose. She was found to be hypoxic and is on oxygen. STUDIES AND LABORATORIES IN THE HOSPITAL: The final head CT, done 07/22/2017, showed: 1. Left temporal lobe 24 x 18-mm intraparenchymal hemorrhage and surrounding edema. 2. Small left temporal lobe subdural hematoma. 3. Subarachnoid and hemorrhagic cortical contusions in the left frontal and parietal lobes. 4. Atrophy and moderate microvascular ischemic gliosis. 5. There was no new hemorrhage and no hydrocephalus, midline shift or herniation. Chest x-ray on 07/21/2017 showed mild cardiac enlargement and otherwise was without abnormality. There were advanced degenerative changes in the left shoulder. Pelvic and cervical CT scans showed the fractures discussed above. Hematology showed an elevated white count; white count was 20.26 on admission. On 07/21/2017 white count had improved to 14.77. There was no left shift. She had developed some anemia. Hemoglobin was 11.3, hematocrit was 33.7. Coagulation studies revealed normal PT and PTT. Serum chemistry on 07/21/2017 revealed normal renal function and electrolytes. Creatinine was low at 0.5, and calcium was slightly low at 8.1. PRECAUTIONS: She is a fall risk. She has orthopedic precautions with need for a soft cervical collar. ACTIVE COMORBIDITIES: She has no active tier 1, tier 2 or tier 3 comorbidities. PAST MEDICAL HISTORY: 1. Rheumatoid arthritis. 2. Hypertension. PAST SURGICAL HISTORY: She has had a right knee replacement and a left hip replacement. PREHOSPITAL MEDICATIONS: 1. Lisinopril 10 mg p.o. daily. 2. Prednisone 5 mg p.o. daily. 3. Infliximab which she reports she was taking approximately every 2 weeks and she thinks is next due on Tuesday. ALLERGIES: There are no known drug allergies. PSYCHOSOCIAL HISTORY: She lives alone. She has a local son. 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 She is a nonsmoker. She enjoys drinking an occasional beer. She reports that she lives in an apartment which she owns. There are no steps to enter in the front, but there are 4 steps up from the garage. FAMILY HISTORY: Noncontributory. REVIEW OF SYSTEMS: She denies pain. She denies cough or dyspnea, fevers or chills. She denies nausea, vomiting, constipation, or diarrhea. She denies dysuria or urinary frequency. She denies vision changes, difficulty swallowing , weakness, numbness or tingling in the extremities. She reports she has been up walking. She denies weight change. Otherwise, a 10-point review of systems is negative. PHYSICAL EXAMINATION: VITAL SIGNS: Blood pressure is 167/91, heart rate is 92 , respiratory rate is 16, oxygen saturation 91% on room air, temperature is 36.9 degrees centigrade. Her weight is 44.6 kg for a body mass index of 17.5. GENERAL: This is a frail-appearing elderly woman, underweight, sitting up in bed in a hospital gown, cooperative and in no acute distress. HEENT: Extraocular movements are intact. Pupils are equal, round, and reactive to light. Mucous membranes are moist. Dentition is in good condition. NECK: The neck is in a cervical collar. HEART: There is a regular rate and rhythm with no murmurs, rubs, or gallops. LUNGS: Clear to auscultation bilaterally. ABDOMEN: Soft, nontender, nondistended with normoactive bowel sounds and no hepatosplenomegaly. EXTREMITIES: There is no cyanosis, clubbing, or edema. She has marked ulnar deviation of the fingers and toes. Radial and dorsalis pedis pulses are 2+ bilaterally. NEUROLOGIC: She is alert and oriented to her general situation. She reports the date as July 17 but corrects herself to July 22. Cranial nerves II-XII are grossly intact. There is no focal weakness, though she has reduced use of her hands. Sensation is intact to light touch. Plantar reflex is indeterminate bilaterally. There is no pronator drift. She appears to have expressive aphasia with word substitution and word-finding difficulty. SKIN: There is a laceration on her right posterior scalp. Current level of function per the preadmission screen: Regarding diet, feeding, and swallowing, she was on a regular diet. She required setup in order to open containers. Dressing upper body and lower body required moderate assistance. Toileting required minimal assist for thoroughness and minimal assist for toilet transfer. She was continent of bowel. For transfers she required contact guard with voice cues. She used a front-wheeled walker. Balance seated was independent, and standing required contact guard with voice cues. Endurance was fair. She ambulated 50 feet with hand-held assist and contact guard to minimal assist. She was unsteady with narrow base of support and decreased stride length. She walked 100 feet with a front-wheeled walker and contact guard assist and voice cues. She had decrease in oxygen saturation levels with activity. Regarding communication, she was noted to have moderate expressive and receptive aphasia and she was noted to have impaired cognition. On review of the hospital chart today she ambulated 200 feet. Otherwise there are no significant differences from the preadmission screen. IMPRESSION: This is a frail 82-year-old woman with severe rheumatoid arthritis who suffered a fall with a traumatic brain injury and cervical spine and pelvic fractures. She presents with marked word-finding difficulty. She has hypoxia of unclear etiology. She has decreased balance and decreased ability to carry out activities of daily living such as toileting and dressing. She is fortunately pain free. She has rheumatoid arthritis and reports that she is due next week for an infusion of infliximab, which takes place typically at her sheet rock hanger's office. Her primary sheet rock hanger is Dr. Moser. She is appropriate for inpatient rehabilitation where she will receive PT and OT to optimize her mobility and activities of daily living and speech and language pathology regarding cognition and communication. Her goal is to return home with supportive services. For a safe discharge, it is anticipated that she will achieve modified independence for eating, dressing, grooming, bed mobility, transfers, and ambulation with the least restrictive device on level and unlevel surfaces for household distances. She may require a wheelchair for community distances. She will be able to manage her medications independently, and she will need to be able to call for assistance when at home. Depending on progress with cognitive function, she may require supervision initially upon discharge. She will have therapy with physical therapy, occupational therapy, and speech and language pathology for 60 minutes per day on 5-7 days of the week. Her expected duration of stay is 10-14 days. It is anticipated that upon discharge she will continue to benefit from home health services including nursing, speech and language pathology, a home health aide, occupational therapy, and physical therapy. Additionally, she may benefit from a brain injury support group. PLAN: 1. Debility status post fall, TBI and pelvic and C-spine fractures. PT and OT to optimize mobility and activities of daily living to the independent or modified independent level. 2. Cognitive and communication deficits due to traumatic brain injury. Assessment and treatment per Speech and Language Pathology. 3. Hypertension was adequately managed in the hospital on lisinopril. She is markedly hypertensive upon admission to inpatient rehabilitation. She is denying pain. On reviewing hospital chart she appears to have been voiding normally, so urinary retention is unlikely to contribute. Will monitor blood pressures serially and if blood pressure remains significantly elevated we will increase lisinopril first, and, second, consider the addition of other antihypertensives. 4. Rheumatoid arthritis with considerable debility. Continue prednisone. Use of infliximab will be discussed further with her sheet rock hanger Dr. Moser after the weekend and it will be determined whether and how she would continue to receive it during her inpatient rehabilitation stay. 5. Pain management. She denies pain at present but will continue orders out of the hospital for acetaminophen as well as hydrocodone/acetaminophen combination. FOLLOWUP: She is to see Dr. Vick with Orthopedics in approximately 2 weeks. She will likely need to follow up with Neurosurgery, Dr. Rosen, as she nears the end of her time period with the cervical collar. PRIMARY CARE DOCTOR: Dr. Quita Gutierrez. INDUSTRIAL NURSE: Dr. Moser. /[id number]/MODL MTDD
[2017-07-23] MEDS: HYDROCODONE/APAP 5/325 TAB PO PRN (00:20)
[2017-07-23] MEDS: ACETAMINOPHEN 325 MG TAB PO PRN ×2 (00:20→08:49)
[2017-07-23] MEDS: LISINOPRIL 10 MG TAB PO SCH (08:41)
[2017-07-23] MEDS: SENNOSIDES/DOCUSATE SODIUM TAB PO SCH ×2 (08:48→20:50)
[2017-07-23] MEDS ORDERED: predniSONE 5 MG TAB PO SCH (09:00)
[2017-07-23] MEDS ORDERED: ENOXAPARIN 40 MG/0.4 ML SYR SC SCH (09:00)
--- NOTE | 2017-07-23 12:50 | SOAPPROG ---
SOAP Progress Note Assessment/Plan: Assessment: 82-year-old female status post fall with multiple intraparenchymal hemorrhages, TBI, pelvic fracture and cervical fracture * cognitive and physical disability due to TBI and pelvic in cervical fractures * Continue PT OT speech therapy * Worried that her daughter will have to cancel her trip on 08/03 to help her. Seems like she will need in-home care on discharge * rheumatoid arthritis * Continue prednisone * hypertension * Better today * Continue lisinopril * hyperlipidemia * Simvastatin * DVT prophylaxis * Non pharmacological Objective: Vital Signs Temp Pulse Resp BP Pulse Ox 36.8 C 87 12 127/66 H 92 07/22/17 20:00 07/23/17 08:51 07/23/17 08:51 07/23/17 08:51 07/23/17 08:51 07/22/17 07/23/17 07/24/17 05:59 05:59 05:59 Intake Total 600 Output Total 725 Balance -725 600 ICD10 Worksheet Patient Problems: Problems Problem Status Onset Fall Acute Hypertension Acute Traumatic subarachnoid hemorrhage Acute Traumatic subdural hematoma Acute
[2017-07-23] MEDS: predniSONE 1 MG TAB PO SCH (13:45)
[2017-07-23] MEDS: TIMOLOL 0.25% 5 ML OPHT.BTL EACHEYE SCH (13:45)
[2017-07-23] MEDS: PRESERVISION AREDS2 FORMULA EYE VIT 1 EACH PO SCH (17:31)
[2017-07-23] MEDS: ATORVASTATIN CALCIUM 20 MG TAB PO SCH (20:50)
[2017-07-23] MEDS: LATANOPROST 0.005% 2.5 ML OPHT DROPS EACHEYE SCH (20:52)
[2017-07-24] MEDS: ACETAMINOPHEN 325 MG TAB PO PRN ×3 (01:23→18:22)
[2017-07-24] MEDS: HYDROCODONE/APAP 5/325 TAB PO PRN (05:33)
[2017-07-24] MEDS: predniSONE 1 MG TAB PO SCH (08:42)
[2017-07-24] MEDS: PRESERVISION AREDS2 FORMULA EYE VIT 1 EACH PO SCH ×2 (08:43→17:18)
[2017-07-24] MEDS: LISINOPRIL 10 MG TAB PO SCH (08:44)
[2017-07-24] MEDS: SENNOSIDES/DOCUSATE SODIUM TAB PO SCH ×2 (08:44→20:35)
[2017-07-24] MEDS: predniSONE 5 MG TAB PO SCH (08:45)
[2017-07-24] MEDS: TIMOLOL 0.25% 5 ML OPHT.BTL EACHEYE SCH (08:46)
[2017-07-24] MEDS ORDERED: ATORVASTATIN CALCIUM 10 MG TAB PO SCH (09:00)
--- NOTE | 2017-07-24 19:42 | SOAPPROG ---
SOAP Progress Note Assessment/Plan: Assessment: 82-year-old female status post fall with multiple intraparenchymal hemorrhages, TBI, pelvic fracture and cervical fracture * cognitive and physical disability due to TBI and pelvic in cervical fractures * Continue PT OT speech therapy * Worried that her daughter will have to cancel her trip on 08/03 to help her. Seems like she will need in-home care on discharge * rheumatoid arthritis * Continue prednisone * hypertension * Better through the weekend overall * Continue lisinopril * hyperlipidemia * Simvastatin * DVT prophylaxis * Non pharmacological 07/24/17 19:42 Subjective: no new complaints. doing well with rehab Objective: Vital Signs Temp Pulse Resp BP Pulse Ox 36.8 C 86 14 163/88 H 93 07/24/17 18:24 07/24/17 18:24 07/24/17 18:24 07/24/17 18:24 07/24/17 18:24 07/23/17 07/24/17 07/25/17 05:59 05:59 05:59 Intake Total 1440 890 Output Total 725 Balance -725 1440 890 Physical Exam - Physical Exam General Appearance: WD/WN, alert, no apparent distress Respiratory: No respiratory distress Cardiac/Chest: No edema Skin: warm/dry Neuro/Psych: alert, normal mood/affect, oriented x 3 ICD10 Worksheet Patient Problems: Problems Problem Status Onset Fall Acute Hypertension Acute Traumatic subarachnoid hemorrhage Acute Traumatic subdural hematoma Acute
[2017-07-24] MEDS: ATORVASTATIN CALCIUM 20 MG TAB PO SCH (20:35)
[2017-07-24] MEDS: LATANOPROST 0.005% 2.5 ML OPHT DROPS EACHEYE SCH (20:43)
[2017-07-25] MEDS: ACETAMINOPHEN 325 MG TAB PO PRN (03:02)
[2017-07-25] MEDS: HYDROCODONE/APAP 5/325 TAB PO PRN ×2 (07:56→17:23)
[2017-07-25] MEDS: PRESERVISION AREDS2 FORMULA EYE VIT 1 EACH PO SCH ×2 (07:58→17:20)
[2017-07-25] MEDS: predniSONE 5 MG TAB PO SCH (07:59)
[2017-07-25] MEDS: predniSONE 1 MG TAB PO SCH (07:59)
[2017-07-25] MEDS: LISINOPRIL 10 MG TAB PO SCH (08:00)
[2017-07-25] MEDS: SENNOSIDES/DOCUSATE SODIUM TAB PO SCH ×2 (08:00→20:48)
[2017-07-25] MEDS: TIMOLOL 0.25% 5 ML OPHT.BTL EACHEYE SCH (08:02)
--- NOTE | 2017-07-25 09:17 | SOAPPROG ---
SOAP Progress Note Assessment/Plan: Assessment: * Debility status post fall, TBI and pelvic and C-spine fractures. * Initial functional independence measure 85 on 07/25/2017. Moderate assist for log roll and decreased recall of strategies. Contact guard assist for transfers , contact guard assist to standby assist for ambulation. Dressing requires minimal to moderate assist. Grooming and hygiene with contact guard assist. Contact guard assist for toileting. Shower transfer required minimal assist and bathing was done with supervision. * Continue PT and OT to optimize mobility and activities of daily living to the independent or modified independent level. 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 * Impairments to memory and executive function. Mild to moderate word-finding difficulty. * Continue Speech and Language Pathology. * Hypertension on lisinopril. * Elevated blood pressure 07/25/2017 may be due to pain. Continue to monitor, consider increasing lisinopril or changing to twice daily. * Rheumatoid arthritis with considerable debility. Continue prednisone. * Discussed with strap buckler machine Dr. Moser. She is on rituximab and is coming due for her 2nd dose of q.6 month 2 doses. She can wait until after discharge for her 2nd dose. * Pain management. Continue acetaminophen as well as hydrocodone/acetaminophen combination. DISPOSITION: Attended staffing, 15 min. Discussed with case management, nursing, dietitian, PT, OT, DISTRICT COURT JUDGE. Intends to return to living independently at home. Local son assists. Set discharge date for 08/04/2017. FOLLOWUP: She is to see Dr. Vick with Orthopedics in approximately 2 weeks. She will likely need to follow up with Neurosurgery, Dr. Rosen, as she nears the end of her time period with the cervical collar. Follow up with strap buckler machine Dr. Moser for rituximab infusion after discharge. PRIMARY CARE DOCTOR: Dr. Quita Gutierrez. 07/25/17 12:31 Subjective: Had headache overnight which may have interfered with sleep. She says she never sleeps very well. Headache resolved with medications. Not sleepy today. Objective: Vital Signs Temp Pulse Resp BP Pulse Ox 36.7 C 80 14 186/81 H 94 07/25/17 06:05 07/25/17 06:05 07/25/17 06:05 07/25/17 08:00 07/25/17 06:05 07/24/17 07/25/17 07/26/17 05:59 05:59 05:59 Intake Total 1440 1190 Output Total 300 Balance 1440 890 - Time Spent With Patient Time Spent With Patient: Greater than 35 min floor time today, including more than 50% of time in coordination of care during staffing meeting, and counseling patient. Physical Exam - Physical Exam General Appearance: WD/WN, alert, no apparent distress Respiratory: normal breath sounds, No crackles, No rhonchi, No wheezing Cardiac/Chest: regular rate, rhythm, No edema, No diastolic murmur, No systolic murmur Skin: normal color, warm/dry Neuro/Psych: alert, normal mood/affect, oriented x 3 ICD10 Worksheet Patient Problems: Problems Problem Status Onset Fall Acute Hypertension Acute Traumatic subarachnoid hemorrhage Acute Traumatic subdural hematoma Acute
[2017-07-25] MEDS: LATANOPROST 0.005% 2.5 ML OPHT DROPS EACHEYE SCH (20:48)
[2017-07-25] MEDS: ATORVASTATIN CALCIUM 20 MG TAB PO SCH (20:48)
[2017-07-26] MEDS: ACETAMINOPHEN 325 MG TAB PO PRN ×2 (07:34→15:16)
[2017-07-26] MEDS: PRESERVISION AREDS2 FORMULA EYE VIT 1 EACH PO SCH ×2 (07:36→17:23)
[2017-07-26] MEDS: SENNOSIDES/DOCUSATE SODIUM TAB PO SCH ×2 (08:12→21:01)
[2017-07-26] MEDS: LISINOPRIL 10 MG TAB PO SCH (08:12)
[2017-07-26] MEDS: predniSONE 5 MG TAB PO SCH (08:12)
[2017-07-26] MEDS: predniSONE 1 MG TAB PO SCH (08:13)
[2017-07-26] MEDS: TIMOLOL 0.25% 5 ML OPHT.BTL EACHEYE SCH (08:14)
--- NOTE | 2017-07-26 12:39 | SOAPPROG ---
SOAP Progress Note Assessment/Plan: Assessment: * Debility status post fall, TBI, and pelvic and C-spine fractures. * Initial functional independence measure 85 on 07/25/2017. Moderate assist for log roll and decreased recall of strategies. Contact guard assist for transfers , contact guard assist to standby assist for ambulation. Dressing requires minimal to moderate assist. Grooming and hygiene with contact guard assist. Contact guard assist for toileting. Shower transfer required minimal assist and bathing was done with supervision. * Continue PT and OT to optimize mobility and activities of daily living to the independent or modified independent level. 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 * Impairments to memory and executive function. Mild to moderate word-finding difficulty. * Likely to need assistance with medication management and bill paying after discharge. * Continue Speech and Language Pathology. * Hypertension on lisinopril. * Elevated blood pressure 07/25/2017 may be due to pain. Continue to monitor, consider increasing lisinopril or changing to twice daily. * Rheumatoid arthritis with considerable debility. Continue prednisone. * Discussed with water resources technical officer Dr. Moser. She is on rituximab and is coming due for her 2nd dose of 2 doses q.6 month. She can wait until after discharge for her 2nd dose. * Pain management. Continue acetaminophen as well as hydrocodone/acetaminophen combination. DISPOSITION: Intends to return to living independently at home. Local son assists. May need fence installer helper at home while son is on vacation starting 2017. Discharge planned for 08/02/2017. Home PT, OT and HEADER OPERATOR. FOLLOWUP: She is to see Dr. Vick with Orthopedics in approximately 2 weeks. She will likely need to follow up with Neurosurgery, Dr. Rosen, as she nears the end of her time period with the cervical collar. Follow up with water resources technical officer Dr. Moser for rituximab infusion after discharge. PRIMARY CARE DOCTOR: Dr. Quita Gutierrez. 07/26/17 12:36 Subjective: No complaints. Slept okay but not as well as at home. Not in pain. No cough or dyspnea, no fevers or chills. Somewhat perseverative regarding etiology of her injury, tripping over neighbor's cat. Objective: Vital Signs Temp Pulse Resp BP Pulse Ox 36.6 C 86 14 183/84 H 95 07/26/17 06:34 07/26/17 06:34 07/26/17 06:34 07/26/17 08:12 07/26/17 06:34 07/25/17 07/26/17 07/27/17 05:59 05:59 05:59 Intake Total 1190 1372 240 Output Total 300 Balance 890 1372 240 Physical Exam - Physical Exam General Appearance: WD/WN, alert, no apparent distress Respiratory: No respiratory distress, No accessory muscle use Skin: normal color, warm/dry Extremities: other (Marked ulnar deviation of fingers at MCP joint) Neuro/Psych: alert, normal mood/affect, oriented x 3 ICD10 Worksheet Patient Problems: Problems Problem Status Onset Fall Acute Hypertension Acute Traumatic subarachnoid hemorrhage Acute Traumatic subdural hematoma Acute
[2017-07-26] MEDS: LATANOPROST 0.005% 2.5 ML OPHT DROPS EACHEYE SCH (21:01)
[2017-07-26] MEDS: ATORVASTATIN CALCIUM 20 MG TAB PO SCH (21:01)
[2017-07-27] MEDS: ACETAMINOPHEN 325 MG TAB PO PRN ×3 (06:23→18:31)
[2017-07-27] MEDS: PRESERVISION AREDS2 FORMULA EYE VIT 1 EACH PO SCH ×2 (08:07→17:30)
[2017-07-27] MEDS: predniSONE 5 MG TAB PO SCH (08:08)
[2017-07-27] MEDS: SENNOSIDES/DOCUSATE SODIUM TAB PO SCH ×2 (08:08→20:35)
[2017-07-27] MEDS: predniSONE 1 MG TAB PO SCH (08:08)
[2017-07-27] MEDS: LISINOPRIL 10 MG TAB PO SCH ×2 (08:08→20:41)
[2017-07-27] MEDS: TIMOLOL 0.25% 5 ML OPHT.BTL EACHEYE SCH (08:11)
--- NOTE | 2017-07-27 11:59 | SOAPPROG ---
SOAP Progress Note Assessment/Plan: Assessment: * Debility status post fall, TBI, and pelvic and C-spine fractures. * Initial functional independence measure 85 on 07/25/2017. Moderate assist for log roll and decreased recall of strategies. Contact guard assist for transfers , contact guard assist to standby assist for ambulation. Dressing requires minimal to moderate assist. Grooming and hygiene with contact guard assist. Contact guard assist for toileting. Shower transfer required minimal assist and bathing was done with supervision. * Continue PT and OT to optimize mobility and activities of daily living to the independent or modified independent level. 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 * Impairments to memory and executive function. Mild to moderate word-finding difficulty. * Likely to need assistance with medication management and bill paying after discharge. * Continue Speech and Language Pathology. * Hypertension on lisinopril. * Had elevated blood pressure on recent evenings and blood pressure is not running low. Will increase lisinopril 10 mg from q.day to twice daily. * Rheumatoid arthritis with considerable debility. Continue prednisone. * Discussed with [employer] administrator Dr. Moser. She is on rituximab and is coming due for her 2nd dose of 2 doses q.6 month. She can wait until after discharge for her 2nd dose. * Pain management. Continue acetaminophen as well as hydrocodone/acetaminophen combination. DISPOSITION: Intends to return to living independently at home. Local son assists. May need treater helper at home while son is on vacation starting 2017. Discharge planned for 08/02/2017. Home PT, OT and PHYSICAL FITNESS TRAINER. FOLLOWUP: She is to see Dr. Vick with Orthopedics in approximately 2 weeks. She will likely need to follow up with Neurosurgery, Dr. Rosen, as she nears the end of her time period with the cervical collar. Follow up with [employer] administrator Dr. Moser for rituximab infusion after discharge. PRIMARY CARE DOCTOR: Dr. Quita Gutierrez. 07/27/17 11:56 Subjective: Reports that she has some elbow pain she says she has a topical that she puts on that her friend will bring in the gives her some relief. Otherwise without complaints. She had her usual interrupted sleep but feels refreshed. Objective: Vital Signs Temp Pulse Resp BP Pulse Ox 36.6 C 88 18 130/78 H 94 07/27/17 06:43 07/27/17 06:43 07/27/17 06:43 07/27/17 08:08 07/27/17 06:43 07/26/17 07/27/17 07/28/17 05:59 05:59 05:59 Intake Total 1372 860 476 Balance 1372 860 476 Physical Exam - Physical Exam General Appearance: WD/WN, alert, no apparent distress, thin Respiratory: normal breath sounds, No crackles, No rhonchi, No wheezing Cardiac/Chest: regular rate, rhythm, No edema, No diastolic murmur, No systolic murmur Skin: normal color, warm/dry Extremities: other (Hands with ulnar deviation at MCP joints.) Neuro/Psych: no motor/sensory deficits, alert, normal mood/affect, oriented x 3 ICD10 Worksheet Patient Problems: Problems Problem Status Onset Fall Acute Hypertension Acute Traumatic subarachnoid hemorrhage Acute Traumatic subdural hematoma Acute
[2017-07-27] MEDS: ATORVASTATIN CALCIUM 20 MG TAB PO SCH (20:35)
[2017-07-27] MEDS: LATANOPROST 0.005% 2.5 ML OPHT DROPS EACHEYE SCH (20:45)
[2017-07-28] MEDS: HYDROCODONE/APAP 5/325 TAB PO PRN ×2 (01:31→08:44)
[2017-07-28] MEDS: LISINOPRIL 10 MG TAB PO SCH ×2 (08:43→20:05)
[2017-07-28] MEDS: PRESERVISION AREDS2 FORMULA EYE VIT 1 EACH PO SCH ×2 (08:43→17:19)
[2017-07-28] MEDS: predniSONE 1 MG TAB PO SCH (08:43)
[2017-07-28] MEDS: predniSONE 5 MG TAB PO SCH (08:44)
[2017-07-28] MEDS: SENNOSIDES/DOCUSATE SODIUM TAB PO SCH ×2 (08:44→20:06)
[2017-07-28] MEDS: TIMOLOL 0.25% 5 ML OPHT.BTL EACHEYE SCH (08:48)
--- NOTE | 2017-07-28 13:54 | SOAPPROG ---
SOAP Progress Note Assessment/Plan: Assessment: * Debility status post fall, TBI, and pelvic and C-spine fractures. * Initial functional independence measure 85 on 07/25/2017. Moderate assist for log roll and decreased recall of strategies. Contact guard assist for transfers , contact guard assist to standby assist for ambulation. Dressing requires minimal to moderate assist. Grooming and hygiene with contact guard assist. Contact guard assist for toileting. Shower transfer required minimal assist and bathing was done with supervision. * Continue PT and OT to optimize mobility and activities of daily living to the independent or modified independent level. 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 * Acute severe worsening of expressive language. Will get stat head CT to evaluate for expansion of left temporal subdural hematoma or left temporal intraparenchymal hemorrhage, seen on imaging in the hospital. * Impairments to memory and executive function. Mild to moderate word-finding difficulty. * Likely to need assistance with medication management and bill paying after discharge. * Continue Speech and Language Pathology. * Right hip pain. * Evaluate change in language first. Right inferior pubic ramus fracture was demonstrated on CT scanning in the hospital on 07/20/2017. Consider discussing with Orthopedics, Dr. Vick. * Hypertension on lisinopril. * Had elevated blood pressure on recent evenings and blood pressure is not running low. Will increase lisinopril 10 mg from q.day to twice daily. * Rheumatoid arthritis with considerable debility. Continue prednisone. * Discussed with shutdown coordinator Dr. Moser. She is on rituximab and is coming due for her 2nd dose of 2 doses q.6 month. She can wait until after discharge for her 2nd dose. * Pain management. Continue acetaminophen as well as hydrocodone/acetaminophen combination. DISPOSITION: Intends to return to living independently at home. Local son assists. May need substation operator helper generation at home while son is on vacation starting 2017. Discharge planned for 08/02/2017. Home PT, OT and SENIOR CLINICAL CONSULTANT. FOLLOWUP: She is to see Dr. Vick with Orthopedics in approximately 2 weeks. She will likely need to follow up with Neurosurgery, Dr. Rosen, as she nears the end of her time period with the cervical collar. Follow up with shutdown coordinator Dr. Moser for rituximab infusion after discharge. PRIMARY CARE DOCTOR: Dr. Quita Gutierrez. 07/28/17 13:49 Subjective: Complains of right hip pain. Was given [place] 2 tablets earlier today. Nurse noted difficulty finding words and was concerned that she might have gotten too much [place]. Objective: Vital Signs Temp Pulse Resp BP Pulse Ox 36.8 C 88 18 116/88 H 95 07/27/17 20:00 07/28/17 12:46 07/28/17 12:46 07/28/17 12:46 07/28/17 12:46 07/27/17 07/28/17 07/29/17 05:59 05:59 05:59 Intake Total 860 1086 240 Output Total 700 Balance 860 386 240 Physical Exam - Physical Exam General Appearance: WD/WN, alert, no apparent distress, thin Respiratory: normal breath sounds, No crackles, No rhonchi, No wheezing Cardiac/Chest: regular rate, rhythm, No edema, No diastolic murmur, No systolic murmur Extremities: other (Right hip nontender to palpation or logroll. Range of motion limited flexion +external rotation.) Neuro/Psych: alert, normal mood/affect, speech abnormalities (Expressive aphasia ) ICD10 Worksheet Patient Problems: Problems Problem Status Onset Fall Acute Hypertension Acute Traumatic subarachnoid hemorrhage Acute Traumatic subdural hematoma Acute
[2017-07-28] MEDS: levETIRAcetam 500 MG TAB PO SCH (20:05)
[2017-07-28] MEDS: ATORVASTATIN CALCIUM 20 MG TAB PO SCH (20:06)
[2017-07-28] MEDS: LATANOPROST 0.005% 2.5 ML OPHT DROPS EACHEYE SCH (20:14)
[2017-07-28] MEDS: ACETAMINOPHEN 325 MG TAB PO PRN (21:48)
[2017-07-29] MEDS: HYDROCODONE/APAP 5/325 TAB PO PRN ×2 (02:49→08:53)
[2017-07-29] MEDS: predniSONE 5 MG TAB PO SCH (08:47)
[2017-07-29] MEDS: levETIRAcetam 500 MG TAB PO SCH ×2 (08:47→20:18)
[2017-07-29] MEDS: predniSONE 1 MG TAB PO SCH (08:47)
[2017-07-29] MEDS: SENNOSIDES/DOCUSATE SODIUM TAB PO SCH ×2 (08:47→20:18)
[2017-07-29] MEDS: LISINOPRIL 10 MG TAB PO SCH (08:47)
[2017-07-29] MEDS: PRESERVISION AREDS2 FORMULA EYE VIT 1 EACH PO SCH ×2 (08:53→17:57)
[2017-07-29] MEDS: TIMOLOL 0.25% 5 ML OPHT.BTL EACHEYE SCH (08:54)
--- NOTE | 2017-07-29 12:19 | SOAPPROG ---
SOAP Progress Note Assessment/Plan: Assessment: * Debility status post fall, TBI, and pelvic and C-spine fractures. * Initial functional independence measure 85 on 07/25/2017; decline to 80 as of .. Transfers have deteriorated from standby assist to contact guard assist. She continues to be a fall risk due to the neck brace hot. She ambulated 30 ft with standby assist using a front wheeled walker. She has a minimal assist to transfer to the commode per nursing. * Continue PT and OT to optimize mobility and activities of daily living to the independent or modified independent level. 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 * Acute severe worsening of expressive language. Stat head CT yesterday 2017 was unchanged. Discuss[address] with Dr. Rosen, neurosurgery, who advised a trial of levetiracetam in case subclinical seizures were causing her deterioration in language functions. Levetiracetam 500 mg twice daily begun in the evening 07/28/2017. 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 * Check CBC, BMP, TSH, stat, 07/29/2017. Discussed with Neurology, Dr. Bonner. Advises MR to to evaluate for ischemic stroke or other etiology of change in language function. * Impairments to memory and executive function. Mild to moderate word-finding difficulty. * Likely to need assistance with medication management and bill paying after discharge. * Continue Speech and Language Pathology. * Right hip pain. * Right inferior pubic ramus fracture was demonstrated on CT scanning in the hospital on 07/20/2017. She reports improved pain control today. * Hypertension on lisinopril. * Had elevated blood pressure on recent evenings and blood pressure is not running low. Will increase lisinopril 10 mg from q.day to twice daily. * Rheumatoid arthritis with considerable debility. Continue prednisone. * Discussed with supervisor grips Dr. Moser. She is on rituximab and is coming due for her 2nd dose of 2 doses q.6 month. She can wait until after discharge for her 2nd dose. * Pain management. Continue acetaminophen as well as hydrocodone/acetaminophen combination. DISPOSITION: Attended staffing, 15 min. Discussed with case management, nursing, dietitian, PT, OT, DISPATCH COORDINATOR. Given decline in function, needs further medical evaluation. Intends to return to living independently at home. Local son assists. May need cafe helper at home while son is on vacation starting 08/03. Extended discharge date to 08/05 to 08/10/2017. FOLLOWUP: She is to see Dr. Vick with Orthopedics in approximately 2 weeks. She will likely need to follow up with Neurosurgery, Dr. Rosen, as she nears the end of her time period with the cervical collar. Follow up with supervisor grips Dr. Moser for rituximab infusion after discharge. PRIMARY CARE DOCTOR: Dr. Quita Gutierrez. 07/29/17 12:23 Subjective: No complaints. Reports she is doing much better. Uses same phrase,"much better ", regarding sleep and hip pain. Limited verbal expansion with open-ended questions. Objective: Vital Signs Temp Pulse Resp BP Pulse Ox 36.4 C 78 14 108/51 L 92 07/29/17 06:52 07/29/17 06:52 07/29/17 06:52 07/29/17 06:52 07/29/17 06:52 07/28/17 07/29/17 07/30/17 05:59 05:59 05:59 Intake Total 1086 540 300 Output Total 700 1100 200 Balance 386 -560 100 Physical Exam - Physical Exam General Appearance: WD/WN, alert, no apparent distress, thin Respiratory: normal breath sounds, No crackles, No rhonchi, No wheezing Cardiac/Chest: regular rate, rhythm, No diastolic murmur, No systolic murmur Skin: normal color, warm/dry Neuro/Psych: alert, normal mood/affect, aphasia (Receptive and expressive), No abnormal box order person II-XII ICD10 Worksheet Patient Problems: Problems Problem Status Onset Fall Acute Hypertension Acute Traumatic subarachnoid hemorrhage Acute Traumatic subdural hematoma Acute
[2017-07-29 14:11] LABS: PLATELET COUNT 361 10^3/uL (150-400)
[2017-07-29] MEDS: ACETAMINOPHEN 325 MG TAB PO PRN (14:56)
[2017-07-29] MEDS: ATORVASTATIN CALCIUM 20 MG TAB PO SCH (20:18)
[2017-07-29] MEDS: LATANOPROST 0.005% 2.5 ML OPHT DROPS EACHEYE SCH (20:23)
[2017-07-30] MEDS: ACETAMINOPHEN 325 MG TAB PO PRN ×2 (00:27→15:47)
[2017-07-30] MEDS: predniSONE 1 MG TAB PO SCH (08:54)
[2017-07-30] MEDS: PRESERVISION AREDS2 FORMULA EYE VIT 1 EACH PO SCH ×2 (08:54→17:18)
[2017-07-30] MEDS: ASPIRIN EC 81 MG TAB PO SCH (08:54)
[2017-07-30] MEDS: SENNOSIDES/DOCUSATE SODIUM TAB PO SCH ×2 (08:54→20:32)
[2017-07-30] MEDS: predniSONE 5 MG TAB PO SCH (08:54)
[2017-07-30] MEDS: levETIRAcetam 500 MG TAB PO SCH ×2 (08:54→20:32)
[2017-07-30] MEDS: LISINOPRIL 10 MG TAB PO SCH (08:54)
[2017-07-30] MEDS: TIMOLOL 0.25% 5 ML OPHT.BTL EACHEYE SCH (09:05)
--- NOTE | 2017-07-30 09:54 | SOAPPROG ---
SOAP Progress Note Assessment/Plan: Assessment: * Debility status post fall, TBI, and pelvic and C-spine fractures. * Initial functional independence measure 85 on 07/25/2017; decline to 80 as of .. Transfers have deteriorated from standby assist to contact guard assist. She continues to be a fall risk . She ambulated 30 ft with standby assist using a front wheeled walker. She has a minimal assist to transfer to the commode per nursing. * Continue PT and OT to optimize mobility and activities of daily living to the independent or modified independent level. * cervical spine fracture-she is currently wearing a soft cervical collar. PLEASE ASCERTAIN WITH ORTHOPEDICS SHE NEEDS TO WEAR THIS DURING MEALS. 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 * Acute severe worsening of expressive language. Stat head CT yesterday 2017 was unchanged. D[address] Rosen, neurosurgery, who advised a trial of levetiracetam in case subclinical seizures were causing her deterioration in language functions. Levetiracetam 500 mg twice daily begun in the evening 07/28/2017. 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 * Check CBC, BMP, TSH, stat, 07/29/2017. Discussed with Neurology, Dr. Bnoner. Advises MR to to evaluate for ischemic stroke or other etiology of change in language function. * Impairments to memory and executive function. Mild to moderate word-finding difficulty. * Likely to need assistance with medication management and bill paying after discharge. * Continue Speech and Language Pathology. * MILD HYPERKALEMIA-SERUM POTASSIUM TODAY IS 5.2. SINCE IT IS ONLY MILDLY ELEVATED, WILL NOT TREAT. WILL CHECK REPEAT BMP IN A.M.. * Right hip pain. * Right inferior pubic ramus fracture was demonstrated on CT scanning in the hospital on 07/20/2017. She reports improved pain control today. * Hypertension on lisinopril. * Had elevated blood pressure on recent evenings. DR. WELDON RECENTLY INCREASED LISINOPRIL TO 10 MG TWICE DAILY. BLOOD PRESSURE THIS MORNING 162/84 WILL CONTINUE TO MONITOR. * Rheumatoid arthritis with considerable debility. Continue prednisone. * Discussed with business development representative Dr. Moser. She is on rituximab and is coming due for her 2nd dose of 2 doses q.6 month. She can wait until after discharge for her 2nd dose. * Pain management. Continue acetaminophen as well as hydrocodone/acetaminophen combination. DISPOSITION: Attended staffing, 15 min. Discussed with case management, nursing, dietitian, PT, OT, SUPERVISOR PHOTOENGRAVING. Given decline in function, needs further medical evaluation. Intends to return to living independently at home. Local son assists. May need overhauler helper at home while son is on vacation starting 08/03. Extended discharge date to 08/05 to 08/10/2017. FOLLOWUP: She is to see Dr. Vick with Orthopedics in approximately 2 weeks. She will likely need to follow up with Neurosurgery, Dr. Rosen, as she nears the end of her time period with the cervical collar. Follow up with business development representative Dr. Moser for rituximab infusion after discharge. PRIMARY CARE DOCTOR: Dr. Quita Gutierrez. Plan: 07/30/17 09:51 07/30/17 09:54 Subjective: No complaints this morning. Denies headache. Denies dizziness or diplopia. Objective: Vital Signs Temp Pulse Resp BP Pulse Ox 36.3 C 90 17 162/84 H 98 07/30/17 06:44 07/30/17 06:44 07/30/17 06:44 07/30/17 08:54 07/30/17 06:44 Laboratory Results 07/29/17 12:42 07/29/17 12:42 07/29/17 07/30/17 07/31/17 05:59 05:59 05:59 Intake Total 540 1450 200 Output Total 1100 1200 Balance -560 250 200 Physical Exam - Physical Exam General Appearance: WD/WN, alert, no apparent distress Neck: other (Wearing soft cervical collar) Respiratory: lungs clear, normal breath sounds Cardiac/Chest: No edema Abdomen: non-tender, soft Extremities: No swelling, No Sarita's sign Neuro/Psych: aphasia (Bright and cheerful. Communicative. Mild aphasia.), speech abnormalities ICD10 Worksheet Patient Problems: Problems Problem Status Onset Fall Acute Hypertension Acute Traumatic subarachnoid hemorrhage Acute Traumatic subdural hematoma Acute
[2017-07-30] MEDS: ATORVASTATIN CALCIUM 20 MG TAB PO SCH (20:32)
[2017-07-30] MEDS: LATANOPROST 0.005% 2.5 ML OPHT DROPS EACHEYE SCH (20:33)
[2017-07-31] MEDS: HYDROCODONE/APAP 5/325 TAB PO PRN ×2 (02:45→22:50)
[2017-07-31] MEDS: LISINOPRIL 10 MG TAB PO SCH (09:47)
[2017-07-31] MEDS: PRESERVISION AREDS2 FORMULA EYE VIT 1 EACH PO SCH ×2 (09:47→17:09)
[2017-07-31] MEDS: SENNOSIDES/DOCUSATE SODIUM TAB PO SCH ×2 (09:48→20:01)
[2017-07-31] MEDS: ASPIRIN EC 81 MG TAB PO SCH (09:48)
[2017-07-31] MEDS: TIMOLOL 0.25% 5 ML OPHT.BTL EACHEYE SCH (09:48)
[2017-07-31] MEDS: predniSONE 5 MG TAB PO SCH (09:48)
[2017-07-31] MEDS: levETIRAcetam 500 MG TAB PO SCH ×2 (09:48→20:01)
[2017-07-31] MEDS: predniSONE 1 MG TAB PO SCH (09:48)
--- NOTE | 2017-07-31 10:17 | SOAPPROG ---
SOAP Progress Note Assessment/Plan: Assessment: * Debility status post fall, TBI, and pelvic and C-spine fractures. * Initial functional independence measure 85 on 07/25/2017; decline to 80 as of .. Transfers have deteriorated from standby assist to contact guard assist. She continues to be a fall risk . She ambulated 30 ft with standby assist using a front wheeled walker. She has a minimal assist to transfer to the commode per nursing. * Continue PT and OT to optimize mobility and activities of daily living to the independent or modified independent level. * cervical spine fracture-she is currently wearing a soft cervical collar. PLEASE ASCERTAIN WITH ORTHOPEDICS SHE NEEDS TO WEAR THIS DURING MEALS. * LEUKOCYTOSIS-WHITE BLOOD COUNT FROM 07/29 15.14. NO OBVIOUS SOURCE. SINCE PATIENT HAS EXPRESSIVE APHASIA WILL GO AHEAD AND OBTAIN URINALYSIS TO RULE OUT UTI POSSIBLE SOURCE OF LEUKOCYTOSIS. 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 * Acute severe worsening of expressive language. Stat head CT yesterday 2017 was unchanged. Discuss[address] with Dr. Rosen, neurosurgery, who advised a trial of levetiracetam in case subclinical seizures were causing her deterioration in language functions. Levetiracetam 500 mg twice daily begun in the evening 07/28/2017. 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 * Check CBC, BMP, TSH, stat, 07/29/2017. Discussed with Neurology, Dr. Bonner. Advises MR to to evaluate for ischemic stroke or other etiology of change in language function. * Impairments to memory and executive function. Mild to moderate word-finding difficulty. * Likely to need assistance with medication management and bill paying after discharge. * Continue Speech and Language Pathology. * MILD HYPERKALEMIA-SERUM POTASSIUM HAS DECREASED TO 4.6 FROM 5.2 YESTERDAY * Right hip pain. * Right inferior pubic ramus fracture was demonstrated on CT scanning in the hospital on 07/20/2017. She reports improved pain control today. * Hypertension on lisinopril. CURRENT BLOOD PRESSURE 137/55 * Had elevated blood pressure on recent evenings. DR. WELDON RECENTLY INCREASED LISINOPRIL TO 10 MG TWICE DAILY. BLOOD PRESSURE THIS MORNING 162/84 WILL CONTINUE TO MONITOR. * Rheumatoid arthritis with considerable debility. Continue prednisone. * Discussed with health information technologist Dr. Moser. She is on rituximab and is coming due for her 2nd dose of 2 doses q.6 month. She can wait until after discharge for her 2nd dose. * Pain management. Continue acetaminophen as well as hydrocodone/acetaminophen combination. DISPOSITION: Attended staffing, 15 min. Discussed with case management, nursing, dietitian, PT, OT, HIGH SCHOOL ART TEACHER. Given decline in function, needs further medical evaluation. Intends to return to living independently at home. Local son assists. May need thermal cutter helper at home while son is on vacation starting 08/03. Extended discharge date to 08/05 to 08/10/2017. FOLLOWUP: She is to see Dr. Vick with Orthopedics in approximately 2 weeks. She will likely need to follow up with Neurosurgery, Dr. Rosen, as she nears the end of her time period with the cervical collar. Follow up with health information technologist Dr. Moser for rituximab infusion after discharge. PRIMARY CARE DOCTOR: Dr. Quita Gutierrez. Plan: 07/30/17 09:51 07/30/17 09:54 07/31/17 10:15 Subjective: SHE DOES NOT VERBALIZE ANY COMPLAINTS. NO REPORTED BY NURSING STAFF. Objective: Vital Signs Temp Pulse Resp BP Pulse Ox 36.4 C 85 16 137/55 H 92 07/31/17 06:25 07/31/17 06:25 07/31/17 06:25 07/31/17 09:47 07/31/17 06:25 Laboratory Results 07/29/17 12:42 07/31/17 06:00 07/30/17 07/31/17 08/01/17 05:59 05:59 05:59 Intake Total 1450 1040 360 Output Total 1200 1100 Balance 250 -60 360 Physical Exam - Physical Exam General Appearance: WD/WN, alert, no apparent distress Neck: non-tender, supple Respiratory: chest non-tender, lungs clear Cardiac/Chest: No edema Abdomen: normal bowel sounds, non-tender, soft Skin: normal color Extremities: other (PRONOUNCED RHEUMATOID CHANGES BOTH HANDS), No swelling, No Sarita's sign ICD10 Worksheet Patient Problems: Problems Problem Status Onset Fall Acute Hypertension Acute Traumatic subarachnoid hemorrhage Acute Traumatic subdural hematoma Acute
[2017-07-31] MEDS: ACETAMINOPHEN 325 MG TAB PO PRN ×2 (10:40→17:09)
[2017-07-31] MEDS: ATORVASTATIN CALCIUM 20 MG TAB PO SCH (20:01)
[2017-07-31] MEDS: LATANOPROST 0.005% 2.5 ML OPHT DROPS EACHEYE SCH (20:01)
[2017-08-01] MEDS: PRESERVISION AREDS2 FORMULA EYE VIT 1 EACH PO SCH ×2 (09:17→16:57)
[2017-08-01] MEDS: levETIRAcetam 500 MG TAB PO SCH ×2 (09:17→20:21)
[2017-08-01] MEDS: SENNOSIDES/DOCUSATE SODIUM TAB PO SCH ×2 (09:17→20:22)
[2017-08-01] MEDS: predniSONE 1 MG TAB PO SCH (09:17)
[2017-08-01] MEDS: ASPIRIN EC 81 MG TAB PO SCH (09:17)
[2017-08-01] MEDS: LISINOPRIL 10 MG TAB PO SCH (09:17)
[2017-08-01] MEDS: predniSONE 5 MG TAB PO SCH (09:17)
[2017-08-01] MEDS: TIMOLOL 0.25% 5 ML OPHT.BTL EACHEYE SCH (09:18)
--- NOTE | 2017-08-01 12:23 | SOAPPROG ---
SOAP Progress Note Assessment/Plan: Assessment: * Debility status post fall, TBI, and pelvic and C-spine fractures. * Initial functional independence measure 85 on 07/25/2017; decline to 80 as of .. Transfers have deteriorated from standby assist to contact guard assist. She continues to be a fall risk due to the neck brace hot. She ambulated 30 ft with standby assist using a front wheeled walker. She has a minimal assist to transfer to the commode per nursing. * Continue PT and OT to optimize mobility and activities of daily living to the independent or modified independent level. 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 * Acute severe worsening of expressive language. Stat head CT yesterday 2017 was unchanged. Discussed with Dr. Rosen, neurosurgery, who advised a trial of levetiracetam in case subclinical seizures were causing her deterioration in language functions. Levetiracetam 500 mg twice daily begun in the evening 07/28/2017. 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 * CBC, BMP and TSH on 07/29/2017 showed no etiology to her decline. 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 Discussed with Dr. Frazier who advised initiating aspirin. Aspirin was started on 07/30/2017. * Impairments to memory and executive function. Severe word-finding difficulty. * Likely to need assistance with medication management and bill paying after discharge. * Continue Speech and Language Pathology. * Leukocytosis on labs 07/29/2017. Unclear etiology other than low-dose prednisone. No other signs or symptoms of infection. Recheck p.r.n.. * Right hip pain. * Right inferior pubic ramus fracture was demonstrated on CT scanning in the hospital on 07/20/2017. * Hypertension on lisinopril. * Had elevated blood pressure in evenings. * Blood pressure was low on lisinopril 10 mg after increased to twice daily and potassium increased. Changed to once daily and potassium normalized. * Rheumatoid arthritis with considerable debility. Continue prednisone. * Discussed with machine tailer Dr. Moser. She is on rituximab and is coming due for her 2nd dose of 2 doses q.6 month. She can wait until after discharge for her 2nd dose. * Pain management. Continue acetaminophen as well as hydrocodone/acetaminophen combination. DISPOSITION: Intends to return to living independently at home. Local son assists. May need installation helper at home while son is on vacation starting 2017. Extended discharge date to 08/05 to 08/10/2017. FOLLOWUP: She is to see Dr. Vick with Orthopedics in approximately 2 weeks. She will likely need to follow up with Neurosurgery, Dr. Rosen, as she nears the end of her time period with the cervical collar. Follow up with machine tailer Dr. Moser for rituximab infusion after discharge. PRIMARY CARE DOCTOR: Dr. Quita Gutierrez. 08/01/17 12:17 Subjective: No complaints. Expresses concern that her son will be gone around the time she is discharging. Needs to refer to written notes to find the words to express this concern. Objective: Vital Signs Temp Pulse Resp BP Pulse Ox 36.5 C 92 15 141/75 H 92 08/01/17 08:00 08/01/17 08:00 08/01/17 08:00 08/01/17 08:00 08/01/17 08:00 Laboratory Results 07/29/17 12:42 07/31/17 06:00 07/31/17 08/01/17 08/02/17 05:59 05:59 05:59 Intake Total 1040 1460 480 Output Total 1100 400 300 Balance -60 1060 180 Physical Exam - Physical Exam General Appearance: WD/WN, alert, no apparent distress Respiratory: No respiratory distress, No accessory muscle use Skin: normal color, warm/dry Extremities: other (Ulnar deviation at the MCPs bilaterally) Neuro/Psych: alert, normal mood/affect, oriented x 3, aphasia (Expressive) ICD10 Worksheet Patient Problems: Problems Problem Status Onset Fall Acute Hypertension Acute Traumatic subarachnoid hemorrhage Acute Traumatic subdural hematoma Acute
[2017-08-01] MEDS: ACETAMINOPHEN 325 MG TAB PO PRN ×2 (15:22→23:59)
[2017-08-01] MEDS: LATANOPROST 0.005% 2.5 ML OPHT DROPS EACHEYE SCH (20:22)
[2017-08-01] MEDS: ATORVASTATIN CALCIUM 20 MG TAB PO SCH (20:22)
[2017-08-02] MEDS: POLYETHYLENE GLYCOL 3350 17 GM PKT PO PRN (03:19)
[2017-08-02] MEDS: ASPIRIN EC 81 MG TAB PO SCH (08:14)
[2017-08-02] MEDS: PRESERVISION AREDS2 FORMULA EYE VIT 1 EACH PO SCH ×2 (08:14→17:19)
[2017-08-02] MEDS: TIMOLOL 0.25% 5 ML OPHT.BTL EACHEYE SCH (08:14)
[2017-08-02] MEDS: LISINOPRIL 10 MG TAB PO SCH (08:14)
[2017-08-02] MEDS: SENNOSIDES/DOCUSATE SODIUM TAB PO SCH ×2 (08:14→21:04)
[2017-08-02] MEDS: predniSONE 5 MG TAB PO SCH (08:14)
[2017-08-02] MEDS: levETIRAcetam 500 MG TAB PO SCH ×2 (08:14→21:04)
[2017-08-02] MEDS: predniSONE 1 MG TAB PO SCH (08:14)
[2017-08-02] MEDS: ACETAMINOPHEN 325 MG TAB PO PRN (12:51)
--- NOTE | 2017-08-02 15:34 | SOAPPROG ---
SOAP Progress Note Assessment/Plan: Assessment: * Debility status post fall, TBI, and pelvic and C-spine fractures. * Initial functional independence measure 85 on 07/25/2017; decline to 80 as of ; further decline to 75 as of 08/02/2017. Bed mobility required and by assist. Sit to stand with standby assist/contact guard assist using a front wheeled walker with cues. Walks 50 ft standby assist to contact guard assist with front wheeled walker. Upper body dressing standby assist with cues, lower body dressing minimal assist. Grooming and hygiene seated with standby assist. Minimal assist for bath and toilet transfer, toileting with minimal assist, bathing standby assist. * Continue PT and OT to optimize mobility and activities of daily living to the independent or modified independent level. 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 * Acute severe worsening of expressive language. Stat head CT yesterday 2017 was unchanged. [address] with Dr[address] Rosen, neurosurgery, who advised a trial of levetiracetam in case subclinical seizures were causing her deterioration in language functions. Levetiracetam 500 mg twice daily begun in the evening 07/28/2017. * Checked CBC, BMP, TSH, 07/29/2017 with no significant abnormalities to account for neurologic functional change. Discussed with Neurology, Dr. Bonner. Per his advice, obtained MRI, which showed to lacunar infarcts in the left parietal lobe. * Has had some improvement since 07/28/2017 but not recovered to level prior to acute worsening. Moderate expressive and mild to moderate receptive aphasia. Apraxia of speech. Decreased memory and executive function. * Likely to need assistance with medication management and bill paying after discharge. * Continue Speech and Language Pathology. * Right hip pain. * Right inferior pubic ramus fracture was demonstrated on CT scanning in the hospital on 07/20/2017. Continue pain control acetaminophen and [place]. * Hypertension on lisinopril. * Blood pressure often elevated and not running low. Had low blood pressures and increased potassium and lisinopril was increased from 10 q.day to 10 twice a day. Will add amlodipine 2.5 mg at HS starting 08/02/2017. * CVA, lacunar, left parietal lobe, seen on MRI 07/29/2017.. Unlikely to account for changes in language function. Initiated aspirin, 07/29/2017. Continue blood pressure control. * Rheumatoid arthritis with considerable debility. Continue prednisone. * Discussed with college and career counselor Dr. Moser. She is on rituximab and is coming due for her 2nd dose of 2 doses q.6 month. She can wait until after discharge for her 2nd dose. DISPOSITION: Attended staffing, 15 min. Discussed with case management, nursing, dietitian, PT, OT, [employer]. Intends to return to living independently at home. Local son assists. May need tank house operator helper at home while son is on vacation starting 08/03/2017 versus discharge to SNF. Tentative discharge date of 2017. FOLLOWUP: She is to see Dr. Vick with Orthopedics in approximately 2 weeks. She will likely need to follow up with Neurosurgery, Dr. Rosen, as she nears the end of her time period with the cervical collar. Follow up with college and career counselor Dr. Moser for rituximab infusion after discharge. PRIMARY CARE DOCTOR: Dr. Quita Gutierrez. 08/02/17 15:35 Subjective: Hip pain is better. She feels she is better able to ambulate and participate in therapies. Denies any urinary symptoms. Sleeping okay. Objective: Vital Signs Temp Pulse Resp BP Pulse Ox 36.8 C 91 16 148/82 H 94 08/02/17 06:30 08/02/17 06:30 08/02/17 06:30 08/02/17 06:30 08/02/17 06:30 Laboratory Results 07/29/17 12:42 07/31/17 06:00 08/01/17 08/02/17 08/03/17 05:59 05:59 05:59 Intake Total 1460 1020 680 Output Total 400 1600 300 Balance 1060 -580 380 - Time Spent With Patient Time Spent With Patient: Greater than 35 min floor time today, including more than 50% of time in coordination of care during staffing meeting, and counseling patient. Physical Exam - Physical Exam General Appearance: WD/WN, alert, no apparent distress, thin Respiratory: normal breath sounds, wheezing, No crackles, No rhonchi Cardiac/Chest: regular rate, rhythm, No edema, No diastolic murmur, No systolic murmur Skin: normal color, warm/dry Neuro/Psych: alert, normal mood/affect, oriented x 3, aphasia (Expressive) ICD10 Worksheet Patient Problems: Problems Problem Status Onset Fall Acute Hypertension Acute Traumatic subarachnoid hemorrhage Acute Traumatic subdural hematoma Acute
[2017-08-02] MEDS: HYDROCODONE/APAP 5/325 TAB PO PRN (21:04)
[2017-08-02] MEDS: ATORVASTATIN CALCIUM 20 MG TAB PO SCH (21:04)
[2017-08-02] MEDS: LATANOPROST 0.005% 2.5 ML OPHT DROPS EACHEYE SCH (21:18)
[2017-08-03] MEDS: ACETAMINOPHEN 325 MG TAB PO PRN ×2 (08:08→20:31)
[2017-08-03] MEDS: ASPIRIN EC 81 MG TAB PO SCH (08:09)
[2017-08-03] MEDS: LISINOPRIL 10 MG TAB PO SCH (08:10)
[2017-08-03] MEDS: levETIRAcetam 500 MG TAB PO SCH ×2 (08:10→20:32)
[2017-08-03] MEDS: PRESERVISION AREDS2 FORMULA EYE VIT 1 EACH PO SCH ×2 (08:10→17:48)
[2017-08-03] MEDS: predniSONE 1 MG TAB PO SCH (08:11)
[2017-08-03] MEDS: SENNOSIDES/DOCUSATE SODIUM TAB PO SCH ×2 (08:13→20:32)
[2017-08-03] MEDS: predniSONE 5 MG TAB PO SCH (08:13)
[2017-08-03] MEDS: TIMOLOL 0.25% 5 ML OPHT.BTL EACHEYE SCH (08:16)
--- NOTE | 2017-08-03 12:51 | SOAPPROG ---
SOAP Progress Note Assessment/Plan: Assessment: * Debility status post fall, TBI, and pelvic and C-spine fractures. * Initial functional independence measure 85 on 07/25/2017; decline to 80 as of ; further decline to 75 as of 08/02/2017. Bed mobility required stand by assist. Sit to stand with standby assist/contact guard assist using a front wheeled walker with cues. Walks 50 ft standby assist to contact guard assist with front wheeled walker. Upper body dressing standby assist with cues, lower body dressing minimal assist. Grooming and hygiene seated with standby assist. Minimal assist for bath and toilet transfer, toileting with minimal assist, bathing standby assist. * Continue PT and OT to optimize mobility and activities of daily living to the independent or modified independent level. 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 * Acute severe worsening of expressive language. Stat head CT yesterday 2017 was unchanged. Discuss[address] with Dr. Rosen, neurosurgery, who advised a trial of levetiracetam in case subclinical seizures were causing her deterioration in language functions. Levetiracetam 500 mg twice daily begun in the evening 07/28/2017. * Checked CBC, BMP, TSH, 07/29/2017 with no significant abnormalities to account for neurologic functional change. Discussed with Neurology, Dr. Bonner. Per his advice, obtained MRI, which showed to lacunar infarcts in the left parietal lobe. * Has had some improvement since 07/28/2017 but not recovered to level prior to acute worsening. Moderate expressive and mild to moderate receptive aphasia. Apraxia of speech. Decreased memory and executive function. * Likely to need assistance with medication management and bill paying after discharge. * Continue Speech and Language Pathology. * Right hip pain. * Right inferior pubic ramus fracture was demonstrated on CT scanning in the hospital on 07/20/2017. Continue pain control acetaminophen and [place]. * Improving. * Hypertension on lisinopril. * Blood pressure often elevated and sometimes low. Had low blood pressures and increased potassium and lisinopril was increased from 10 q.day to 10 twice a day. * Continue to monitor * CVA, lacunar, left parietal lobe, seen on MRI 07/29/2017.. Unlikely to account for changes in language function. Initiated aspirin, 07/29/2017. Continue blood pressure control. * Rheumatoid arthritis with considerable debility. Continue prednisone. * Discussed with online trader Dr. Moser. She is on rituximab and is coming due for her 2nd dose of 2 doses q.6 month. She can wait until after discharge for her 2nd dose. DISPOSITION: Intends to return to living independently at home. Local son assists. May need furniture mover helper at home while son is on vacation starting 2017 versus discharge to SNF. Tentative discharge date of 08/09/2017. FOLLOWUP: She is to see Dr. Vick with Orthopedics in approximately 2 weeks. She will likely need to follow up with Neurosurgery, Dr. Rosen, as she nears the end of her time period with the cervical collar. Follow up with online trader Dr. Moser for rituximab infusion after discharge. PRIMARY CARE DOCTOR: Dr. Quita Gutierrez. 08/03/17 12:47 Subjective: Reports a cough with phlegm. Denies dyspnea. No fevers or chills. Otherwise no complaints. Reports right hip pain is better. Objective: Vital Signs Temp Pulse Resp BP Pulse Ox 36.9 C 94 16 127/73 H 97 08/03/17 06:38 08/03/17 06:38 08/03/17 06:38 08/03/17 08:10 08/03/17 06:38 Laboratory Results 07/29/17 12:42 07/31/17 06:00 08/02/17 08/03/17 08/04/17 05:59 05:59 05:59 Intake Total 1020 1180 500 Output Total 1600 900 Balance -580 280 500 Physical Exam - Physical Exam General Appearance: WD/WN, alert, no apparent distress, thin Respiratory: normal breath sounds, No crackles, No rhonchi, No wheezing Skin: normal color, warm/dry Neuro/Psych: no motor/sensory deficits, alert, normal mood/affect, aphasia ( Expressive) ICD10 Worksheet Patient Problems: Problems Problem Status Onset Fall Acute Hypertension Acute Traumatic subarachnoid hemorrhage Acute Traumatic subdural hematoma Acute
[2017-08-03] MEDS: ATORVASTATIN CALCIUM 20 MG TAB PO SCH (20:32)
[2017-08-04] MEDS: LATANOPROST 0.005% 2.5 ML OPHT DROPS EACHEYE SCH ×2 (03:02→20:15)
[2017-08-04] MEDS: POLYETHYLENE GLYCOL 3350 17 GM PKT PO PRN (03:04)
[2017-08-04] MEDS: levETIRAcetam 500 MG TAB PO SCH ×2 (08:48→20:15)
[2017-08-04] MEDS: ASPIRIN EC 81 MG TAB PO SCH (08:48)
[2017-08-04] MEDS: SENNOSIDES/DOCUSATE SODIUM TAB PO SCH ×2 (08:48→20:15)
[2017-08-04] MEDS: LISINOPRIL 10 MG TAB PO SCH (08:49)
[2017-08-04] MEDS: predniSONE 5 MG TAB PO SCH (08:49)
[2017-08-04] MEDS: predniSONE 1 MG TAB PO SCH (08:49)
[2017-08-04] MEDS: PRESERVISION AREDS2 FORMULA EYE VIT 1 EACH PO SCH ×2 (08:49→17:15)
[2017-08-04] MEDS: TIMOLOL 0.25% 5 ML OPHT.BTL EACHEYE SCH (08:50)
[2017-08-04] MEDS: HYDROCODONE/APAP 5/325 TAB PO PRN ×3 (10:43→22:54)
--- NOTE | 2017-08-04 15:08 | SOAPPROG ---
SOAP Progress Note Assessment/Plan: Assessment: * Debility status post fall 07/20/2017, with TBI, and pelvic and C-spine fractures. * Initial functional independence measure 85 on 07/25/2017; decline to 80 as of ; further decline to 75 as of 08/02/2017. Bed mobility required stand by assist. Sit to stand with standby assist/contact guard assist using a front wheeled walker with cues. Walks 50 ft standby assist to contact guard assist with front wheeled walker. Upper body dressing standby assist with cues, lower body dressing minimal assist. Grooming and hygiene seated with standby assist. Minimal assist for bath and toilet transfer, toileting with minimal assist, bathing standby assist. * Continue PT and OT to optimize mobility and activities of daily living to the independent or modified independent level. 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 * Acute severe worsening of expressive language. Stat head CT yesterday 2017 was unchanged. Discuss[address] with Dr. Rosen, neurosurgery, who advised a trial of levetiracetam in case subclinical seizures were causing her deterioration in language functions. Levetiracetam 500 mg twice daily begun in the evening 07/28/2017. * Checked CBC, BMP, TSH, 07/29/2017 with no significant abnormalities to account for neurologic functional change. Discussed with Neurology, Dr. Bonner. Per his advice, obtained MRI, which showed to lacunar infarcts in the left parietal lobe. * Has had some improvement since 07/28/2017 but not recovered to level prior to acute worsening. Moderate expressive and mild to moderate receptive aphasia. Apraxia of speech. Decreased memory and executive function. * Likely to need assistance with medication management and bill paying after discharge. * Continue Speech and Language Pathology. * Right hip pain. * Right inferior pubic ramus fracture was demonstrated on CT scanning in the hospital on 07/20/2017. Continue pain control acetaminophen and [place]. * Improving. * Hypertension on lisinopril. * Blood pressure often elevated and sometimes low. Had low blood pressures and increased potassium when lisinopril was increased from 10 q.day to 10 twice a day. * Blood pressure is now adequately controlled on lisinopril 10 mg q.day. * Continue to monitor * CVA, lacunar, left parietal lobe, seen on MRI 07/29/2017.. Unlikely to account for changes in language function. Initiated aspirin, 07/29/2017. Continue blood pressure control. * Rheumatoid arthritis with considerable debility. Continue prednisone. * Discussed with inspector receiving Dr. Moser. She is on rituximab and is coming due for her 2nd dose of 2 doses q.6 month. She can wait until after discharge for her 2nd dose. DISPOSITION: Intends to return to living independently at home. Local son assists. May need impregnator and drier helper at home while son is on vacation starting 2017 versus discharge to SNF. Tentative discharge date of 08/09/2017. FOLLOWUP: She is to see Dr. Vick with Orthopedics in approximately 2 weeks. She will likely need to follow up with Neurosurgery, Dr. Rosen, as she nears the end of her time period with the cervical collar. Follow up with inspector receiving Dr. Moser for rituximab infusion after discharge. PRIMARY CARE DOCTOR: Dr. Quita Gutierrez. 08/04/17 14:59 Subjective: No complaints. Hip pain is improved. Breathing well, no cough or dyspnea, no fevers or chills. In good spirits. Objective: Vital Signs Temp Pulse Resp BP Pulse Ox 36.6 C 98 18 118/56 L 95 08/04/17 08:00 08/04/17 08:00 08/04/17 08:00 08/04/17 08:49 08/04/17 08:00 Laboratory Results 07/29/17 12:42 07/31/17 06:00 08/03/17 08/04/17 08/05/17 05:59 05:59 05:59 Intake Total 1180 1520 400 Output Total 900 500 Balance 280 1020 400 Physical Exam - Physical Exam General Appearance: WD/WN, alert, no apparent distress, thin Respiratory: No respiratory distress, No accessory muscle use Skin: normal color, warm/dry Neuro/Psych: no motor/sensory deficits, alert, normal mood/affect, aphasia ( Expressive) ICD10 Worksheet Patient Problems: Problems Problem Status Onset Fall Acute Hypertension Acute Traumatic subarachnoid hemorrhage Acute Traumatic subdural hematoma Acute
[2017-08-04] MEDS: ATORVASTATIN CALCIUM 20 MG TAB PO SCH (20:15)
[2017-08-05] MEDS: HYDROCODONE/APAP 5/325 TAB PO PRN (05:53)
[2017-08-05] MEDS: predniSONE 1 MG TAB PO SCH (08:16)
[2017-08-05] MEDS: LISINOPRIL 10 MG TAB PO SCH (08:16)
[2017-08-05] MEDS: ASPIRIN EC 81 MG TAB PO SCH (08:16)
[2017-08-05] MEDS: predniSONE 5 MG TAB PO SCH (08:16)
[2017-08-05] MEDS: levETIRAcetam 500 MG TAB PO SCH ×2 (08:16→21:21)
[2017-08-05] MEDS: PRESERVISION AREDS2 FORMULA EYE VIT 1 EACH PO SCH ×2 (08:16→17:20)
[2017-08-05] MEDS: SENNOSIDES/DOCUSATE SODIUM TAB PO SCH ×2 (08:16→21:22)
[2017-08-05] MEDS: TIMOLOL 0.25% 5 ML OPHT.BTL EACHEYE SCH (08:17)
--- NOTE | 2017-08-05 09:48 | SOAPPROG ---
SOAP Progress Note Assessment/Plan: Assessment: * Debility status post fall 07/20/2017, with TBI, and pelvic and C-spine fractures. * Initial functional independence measure 85 on 07/25/2017; decline to 80 as of ; further decline to 75 as of 08/02/2017. Bed mobility required stand by assist. Sit to stand with standby assist/contact guard assist using a front wheeled walker with cues. Walks 50 ft standby assist to contact guard assist with front wheeled walker. Upper body dressing standby assist with cues, lower body dressing minimal assist. Grooming and hygiene seated with standby assist. Minimal assist for bath and toilet transfer, toileting with minimal assist, bathing standby assist. * Continue PT and OT to optimize mobility and activities of daily living to the independent or modified independent level. 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 * Acute severe worsening of expressive language. Stat head CT yesterday 2017 was unchanged. Discuss[address] with Dr. Rosen, neurosurgery, who advised a trial of levetiracetam in case subclinical seizures were causing her deterioration in language functions. Levetiracetam 500 mg twice daily begun in the evening 07/28/2017. * Checked CBC, BMP, TSH, 07/29/2017 with no significant abnormalities to account for neurologic functional change. Discussed with Neurology, Dr. Bonner. Per his advice, obtained MRI, which showed to lacunar infarcts in the left parietal lobe. * Has had some improvement since 07/28/2017 but not recovered to level prior to acute worsening. Moderate expressive and mild to moderate receptive aphasia. Apraxia of speech. Decreased memory and executive function. * Likely to need assistance with medication management and bill paying after discharge. * Continue Speech and Language Pathology. * Cough and malaise. * CBC, procalcitonin, chest x-ray negative for infection or pneumonia. * Also with itchy eyes. Viral syndrome vs. allergy. * Trial of antihistamine.. * Right hip pain. * Right inferior pubic ramus fracture was demonstrated on CT scanning in the hospital on 07/20/2017. Continue pain control acetaminophen and [place]. * Improving. * Hypertension on lisinopril. * Blood pressure often elevated and sometimes low. Had low blood pressures and increased potassium when lisinopril was increased from 10 q.day to 10 twice a day. * Blood pressure is now adequately controlled on lisinopril 10 mg q.day. * Continue to monitor * CVA, lacunar, left parietal lobe, seen on MRI 07/29/2017.. Unlikely to account for changes in language function. Initiated aspirin, 07/29/2017. Continue blood pressure control. * Rheumatoid arthritis with considerable debility. Continue prednisone. * Discussed with clerk general Dr. Moser. She is on rituximab and is coming due for her 2nd dose of 2 doses q.6 month. She can wait until after discharge for her 2nd dose. DISPOSITION: Intends to return to living independently at home. Local son assists. May need spout liner helper at home while son is on vacation starting 2017 versus discharge to SNF. Tentative discharge date of 08/09/2017. FOLLOWUP: She is to see Dr. Vick with Orthopedics in approximately 2 weeks. She will likely need to follow up with Neurosurgery, Dr. Rosen, as she nears the end of her time period with the cervical collar. Follow up with clerk general Dr. Moser for rituximab infusion after discharge. PRIMARY CARE DOCTOR: Dr. Quita Gutierrez. 08/04/17 14:59 08/05/17 09:47 08/05/17 13:33 Subjective: Not feeling good today. Has a cough and head congestion. No dyspnea, no fevers or chills. Speech therapy reports language functions are stable. Objective: Vital Signs Temp Pulse Resp BP Pulse Ox 36.6 C 78 12 105/58 L 92 08/05/17 05:57 08/05/17 05:57 08/05/17 05:57 08/05/17 08:16 08/05/17 05:57 Laboratory Results 07/29/17 12:42 07/31/17 06:00 08/04/17 08/05/17 08/06/17 05:59 05:59 05:59 Intake Total 1520 500 Output Total 500 500 300 Balance 1020 0 -300 Physical Exam - Physical Exam General Appearance: WD/WN, alert, no apparent distress Respiratory: normal breath sounds, wheezing (Expiratory, right middle and upper lobes.), other (Coughs intermittently with deep inspiration), No crackles, No rhonchi Cardiac/Chest: regular rate, rhythm, No diastolic murmur, No systolic murmur Neuro/Psych: no motor/sensory deficits, alert, normal mood/affect, oriented x 3 , aphasia (Expressive) ICD10 Worksheet Patient Problems: Problems Problem Status Onset Fall Acute Hypertension Acute Traumatic subarachnoid hemorrhage Acute Traumatic subdural hematoma Acute
[2017-08-05 11:54] LABS: PLATELET COUNT 469 10^3/uL (150-400)
[2017-08-05] MEDS: CETIRIZINE 10 MG TAB PO SCH (14:35)
[2017-08-05] MEDS: ACETAMINOPHEN 325 MG TAB PO PRN (17:23)
[2017-08-05] MEDS: ATORVASTATIN CALCIUM 20 MG TAB PO SCH (21:21)
[2017-08-05] MEDS: LATANOPROST 0.005% 2.5 ML OPHT DROPS EACHEYE SCH (21:21)
[2017-08-06] MEDS: ACETAMINOPHEN 325 MG TAB PO PRN ×2 (01:25→09:42)
[2017-08-06] MEDS: ASPIRIN EC 81 MG TAB PO SCH (09:38)
[2017-08-06] MEDS: PRESERVISION AREDS2 FORMULA EYE VIT 1 EACH PO SCH (09:38)
[2017-08-06] MEDS: predniSONE 5 MG TAB PO SCH (09:39)
[2017-08-06] MEDS: CETIRIZINE 10 MG TAB PO SCH (09:39)
[2017-08-06] MEDS: LISINOPRIL 10 MG TAB PO SCH (09:39)
[2017-08-06] MEDS: levETIRAcetam 500 MG TAB PO SCH (09:39)
[2017-08-06] MEDS: predniSONE 1 MG TAB PO SCH (09:40)
[2017-08-06] MEDS: SENNOSIDES/DOCUSATE SODIUM TAB PO SCH (09:41)
[2017-08-06] MEDS: TIMOLOL 0.25% 5 ML OPHT.BTL EACHEYE SCH (09:45)
--- NOTE | 2017-08-06 12:37 | SOAPPROG ---
JANNETTE Progress Note Assessment/Plan: 82-year-old woman on inpatient rehabilitation initially admitted to [facility] on 07/20/2017 after mechanical fall with left temporal intraparenchymal hemorrhage and subdural hematomas in the left temporal and frontal temporal areas. Hospital course has been complicated by acute worsening of expressive language on 07/28/2017 with follow-up MRI that showed new lacunar infarcts, started on aspirin. Today, staff endorses that she has worsened aphasia, she is no longer oriented x3 as she was in prior notes. Staff feels that it is localized to aphasia and does not seem to be a global decline in function. However, they also feel that she seems more "sick" than on prior days. She also has an elevated white blood cell count and more cough, she had a chest x-ray earlier in the week that did not suggest pneumonia. Differential diagnosis is fairly broad at this point including a UTI or pneumonia, also could be a focal neurological change and considering the breath in-depth of studies likely required, I am transferring her to [facility] in the emergency department for further workup. I discussed this with the attending physician in the emergency department, Sam Reyna, patient being transported by ambulance today. This is the 1st time I meeting this patient, all medical issues are new to this provider. A total of 45 min was spent on the floor in the care of the patient, the majority of which was spent counseling coordination of care regarding patient transfer. Depending on the course of the workup, I would hope anticipate that she would be able to return to inpatient rehabilitation shortly. Additional medical issues reviewed but not changed today include right hip pain , hypertension, rheumatoid arthritis. 08/06/17 12:32 Subjective: Chief complaint: Language changes Patient herself today endorses changes in her speech, language, and word- finding. She denies malaise as she apparently has had on prior days. She specifically denies any shortness of breath or chest pain, no new numbness, tingling, or weakness. She also denies a cough. Staff approached me today and said that she is having much more difficulty with language comprehension as well as expression. The time course of these changes is unclear, seems to be over the past few days or less. Left message for her son to call back on the unit as well. Objective: Vital Signs Temp Pulse Resp BP Pulse Ox 36.4 C 85 16 145/81 H 91 L 06/02/18 06:36 08/06/17 06:36 08/06/17 06:36 08/06/17 09:39 08/06/17 06:36 Laboratory Results 08/05/17 10:44 07/31/17 06:00 08/05/17 08/06/17 08/07/17 05:59 05:59 05:59 Intake Total 500 730 Output Total 500 850 Balance 0 -120 Physical Exam - Physical Exam General Appearance: WD/WN, alert, no apparent distress, thin EENT: No scleral icterus (R), No scleral icterus (L) Neck: other (In a soft collar) Respiratory: chest non-tender, lungs clear, normal breath sounds, other (No dullness to percussion), No respiratory distress, No accessory muscle use, No decreased breath sounds, No rales, No rhonchi, No wheezing, No prolonged expiration, No prolonged inspiration, No retractions Cardiac/Chest: normal peripheral pulses, regular rate, rhythm, other (Somewhat distant heart sounds), No edema, No gallop Abdomen: normal bowel sounds, non-tender, soft, No distended, No guarding, No mass Skin: warm/dry, No normal color (Slightly pale), No cyanosis, No diaphoresis Extremities: No pedal edema, No calf tenderness, No swelling, No Sarita's sign Neuro/Psych: alert, aphasia, speech abnormalities (Perseverating), No normal mood/affect (Normal mood but flat affect), No oriented x 3 (Not oriented to date or specific place, she was perseverating on an incorrect date. This was performed in front of the speech therapist to considered it very abnormal based on her prior experience with her a few days ago.), No abnormal instructional writer [id number] ICD10 Worksheet Patient Problems: Problems Problem Status Onset Fall Acute Hypertension Acute Traumatic subarachnoid hemorrhage Acute Traumatic subdural hematoma Acute
--- NOTE | 2017-08-06 18:53 | PDDCSUM ---
Discharge Summary Discharge Summary: Brief Discharge Summary Joan Peace Date of Admission/Transfer: 07/22/2017 Date of Discharge/Transfer: 08/06/2017 Admitting Diagnosis: 14.2 brain injury plus multiple fractures Discharge Diagnosis: Same, plus new stroke Secondary Diagnoses: impairments in mobility, self care, cognition, aphasia, cough, right hip pain due to inferior pubic ramus fracture, hypertension, rheumatoid arthritis. Discharge Physician: Ryan Garcia MD Procedures: Head CT 07/28 Unchanged with decreased scalp hematoma. Brain MRI 07/29 Left parietal lobe acute subcortical lacunar infarcts Chest x-ray 08/05 COPD with possible exacerbation, no PNA Consultations: PT, OT, APPLICATIONS PROGRAMMER, SW, dietary History of Present Illness: Admitted to [facility] following mechanical fall on 07/20, found to have L temporal lobe IPH, SDH in L temporal and L frontotemporal areas. Cervical spine fractures, right inf pubic ramus fx. Nonsurgical, soft collar x 8 weeks. See initial HPI from 07/22/2017 for full details. Hospital Course: She regressed in rehab and on 07/28 and was found to have ongoing lacunar strokes. She again had regression in function and new worsened aphasia on 08/06 and was evaluated in the ED, found to have ongoing embolic strokes in the L MCA distribution, Neurology consult Dr. Hopkins reportedly stated after workup that there was nothing further to be done to prevent ongoing strokes, and she was admitted to the acute care service at [facility] for post stroke care and ongoing assessment of prognosis and goals of care with Neurology input. She was also noted to have an acute UTI on ED workup. FIM decline was from 85 on 07/25 to 80 on 07/29, to 75 on 08/02. On rehab she had an ongoing cough with CXR negative for PNA. BP was adequately controlled on lisinopril alone. RA was stable on prednisone, followed by Dr. Moser. Condition: Requiring assistance with most ADLs, mobility, and cognitive tasks. Guarded due to new and ongoing strokes. Disposition: [facility] ED/ Acute Care hospitalist service. Her goal was to return home with family assistance, but son is reportedly on vacation. Discharge Medications: See DC med reconciliation, new meds from ED encounter on same date of service. Discharge Instructions: She should have fall precautions, cervical soft collar but a [place] collar for showering Pending Studies: None from inpatient rehab, see ED encounter from same date of service. Recommendations: Recommend re-eval from PT/OT/APPLICATIONS PROGRAMMER at acute care depending on goals. Please place an inpatient rehab consult order and we will continue to follow with you. Follow-up: Depending on ultimate dispo, she is to see Dr. Vick with Orthopedics in the next week. She will likely need to follow up with Neurosurgery, Dr. Rosen, as she nears the end of her time period with the cervical collar. Follow up with staff weapons officer Dr. Moser for rituximab infusion after discharge. Neuro followup TBD. This is my first encounter with the patient and all medical issues are new to this provider. As an update, a total of 120 minutes was spent on the floor in the care of the patient, the majority was spent in the counseling and coordination of care regarding her change in neurological status.
--- NOTE | 2017-08-07 13:32 | SOAPPROG ---
JANNETTE Progress Note Assessment/Plan: 82-year-old woman on inpatient rehabilitation initially admitted to [facility] on 07/20/2017 after mechanical fall with left temporal intraparenchymal hemorrhage and subdural hematomas in the left temporal and frontal temporal areas. Hospital course has been complicated by acute worsening of expressive language on 07/28/2017 with follow-up MRI that showed new lacunar infarcts, started on aspirin, and subsequent repeat stroke symptoms that were mostly worsened if a PRINCE on August 06, 2017, found to have new embolic strokes in the left MCA distribution, thought to be cardioembolic in nature. Today, she transferred back from [facility] as noted in the interval history after evaluation demonstrating a new acute embolic stroke. She has had continuous decrement and her function because of these neurological complications. Plan for re-evaluation from PT, OT, and speech. We will reassess to see if her functional goals are still appropriate and if we feel that her discharge plan is still valid given her decreased function. For now, continue most of her medical issues unchanged, with the addition of ciprofloxacin for urinary tract infection for an additional 2 days, follow-up as noted below. Neurology would like to follow up with her to consider anticoagulation after her intracranial hemorrhage has fully healed, 4+ weeks from hemorrhage date as mentioned in Dr. Hopkins's note. They recommended aspirin, normal attention, statin therapy. Also recommended diabetes screening as an outpatient. Continuing levetiracetam for seizure prophylaxis. Neuro thought that Cardiology evaluation would be needed for atrial fibrillation. Deferring until that time. Recommending follow up with PCP in 1 week from discharge for ongoing evaluation and optimization of vascular risk factors, a follow-up with cardiology 1 week from discharge for evaluation of atrial fibrillation, follow up with Neurology 2 weeks after discharge with a repeat head CT at that time and if intracranial hemorrhage remained resolved than they would clear her for anticoagulation, 4+ weeks from her trauma. Also recommending follow up with Neurosurgery as previously planned. Appreciate assistance from emergency department, Neurology, and Hospital Medicine. A total of 40 min was spent on the floor in the care of the patient today, the majority of which was spent in counseling and coordination of care regarding patient logistics and assessing safety and return to rehabilitation. Additional medical issues reviewed but not changed today include right hip pain , hypertension, rheumatoid arthritis. No change to discharge date for now, plan to re-evaluate with team. 08/06/17 12:32 08/07/17 13:27 08/07/17 13:32 Subjective: Chief complaint: Brief transfer note and update, stroke symptoms Mrs. Peace was at [facility] for the past 24 hr or so where she was transferred for concern of stroke given new speech impairments. She was confirmed to have acute ischemic stroke in the left middle cerebral artery distribution thought likely to be cardioembolic by Neurology. Given the fact that she had recent intracranial hemorrhage they did not feel that there was any intervention to be done. Interestingly, she had a CTA that showed considerable stenosis of the right internal carotid artery. They essentially recommended continuing aspirin and blood pressure control as well as her statin. They stated that her symptoms completely resolved since admission, she still has ongoing aphasia. She is also diagnosed with an acute urinary tract infection and discharged on ciprofloxacin for 2 additional days. Leukocytosis noted during that admission was thought due to the urinary tract infection. She was also continued on her prednisone for rheumatoid arthritis. Neurology would like to follow up with her to consider anticoagulation after her intracranial hemorrhage has fully healed, 4+ weeks from hemorrhage date as mentioned in Dr. Hopkins's note. They recommended aspirin, normal attention, statin therapy. Also recommended diabetes screening as an outpatient. Continuing levetiracetam for seizure prophylaxis. Thought that Cardiology evaluation would be needed for atrial fibrillation. Deferring attn till that time. Recommending follow up with PCP in 1 week from discharge for ongoing evaluation and optimization of vascular risk factors, a follow-up with cardiology 1 week from discharge for evaluation of atrial fibrillation, follow up with Neurology 2 weeks after discharge with a repeat head CT at that time and if intracranial hemorrhage remained resolved than they would clear her for anticoagulation, 4+ weeks from her trauma. Also recommending follow up with Neurosurgery as previously planned. Objective: Vital Signs Temp Pulse Resp BP Pulse Ox 36.4 C 85 16 145/81 H 91 L 08/06/17 06:36 08/06/17 06:36 08/06/17 06:36 08/06/17 09:39 08/06/17 06:36 Laboratory Results 08/05/17 10:44 07/31/17 06:00 08/06/17 08/07/17 08/08/17 05:59 05:59 05:59 Intake Total 730 0 Output Total 850 Balance -120 0 Physical Exam - Physical Exam General Appearance: WD/WN, alert, no apparent distress EENT: No scleral icterus (R), No scleral icterus (L) Respiratory: No respiratory distress, No accessory muscle use Cardiac/Chest: normal peripheral pulses, regular rate, rhythm, No edema Skin: normal color, warm/dry, No cyanosis, No diaphoresis Extremities: non-tender, other (Significant deformities from rheumatoid arthritis, complicating neurologic exam), No pedal edema, No calf tenderness, No swelling Neuro/Psych: alert, normal mood/affect, speech abnormalities (Ongoing aphasia) ICD10 Worksheet Patient Problems: Problems Problem Status Onset Acute lacunar infarction Acute Fall Acute Hypertension Acute Traumatic subarachnoid hemorrhage Acute Traumatic subdural hematoma Acute Urinary tract infection Acute
[2017-08-07] MEDS: PRESERVISION AREDS2 FORMULA EYE VIT 1 EACH PO SCH ×2 (13:36→17:50)
[2017-08-07] MEDS: ATORVASTATIN CALCIUM 20 MG TAB PO SCH ×2 (13:36→20:21)
[2017-08-07] MEDS: CETIRIZINE 10 MG TAB PO SCH (13:36)
[2017-08-07] MEDS: LATANOPROST 0.005% 2.5 ML OPHT DROPS EACHEYE SCH ×2 (13:37→20:24)
[2017-08-07] MEDS: SENNOSIDES/DOCUSATE SODIUM TAB PO SCH ×3 (13:37→20:21)
[2017-08-07] MEDS: levETIRAcetam 500 MG TAB PO SCH ×3 (13:37→20:21)
[2017-08-07] MEDS: LISINOPRIL 10 MG TAB PO SCH (13:39)
[2017-08-07] MEDS: ASPIRIN EC 81 MG TAB PO SCH (13:39)
[2017-08-07] MEDS: TIMOLOL 0.25% 5 ML OPHT.BTL EACHEYE SCH (13:41)
[2017-08-07] MEDS: predniSONE 5 MG TAB PO SCH (13:41)
[2017-08-07] MEDS: predniSONE 1 MG TAB PO SCH (13:41)
[2017-08-07] MEDS: HYDROCODONE/APAP 5/325 TAB PO PRN (17:50)
[2017-08-07] MEDS: CIPROFLOXACIN 500 MG TAB PO SCH (20:21)
[2017-08-08] MEDS: HYDROCODONE/APAP 5/325 TAB PO PRN (01:02)
[2017-08-08] MEDS: ASPIRIN EC 81 MG TAB PO SCH (08:42)
[2017-08-08] MEDS: CETIRIZINE 10 MG TAB PO SCH (08:43)
[2017-08-08] MEDS: LISINOPRIL 10 MG TAB PO SCH (08:43)
[2017-08-08] MEDS: PRESERVISION AREDS2 FORMULA EYE VIT 1 EACH PO SCH ×2 (08:43→18:35)
[2017-08-08] MEDS: levETIRAcetam 500 MG TAB PO SCH ×2 (08:43→22:25)
[2017-08-08] MEDS: predniSONE 5 MG TAB PO SCH (08:47)
[2017-08-08] MEDS: SENNOSIDES/DOCUSATE SODIUM TAB PO SCH ×2 (08:48→22:25)
[2017-08-08] MEDS: predniSONE 1 MG TAB PO SCH (08:48)
[2017-08-08] MEDS: CIPROFLOXACIN 500 MG TAB PO SCH (08:49)
[2017-08-08] MEDS: TIMOLOL 0.25% 5 ML OPHT.BTL EACHEYE SCH (11:50)
--- NOTE | 2017-08-08 12:14 | SOAPPROG ---
SOAP Progress Note Assessment/Plan: Assessment: * Debility status post fall 07/20/2017, with TBI, and pelvic and C-spine fractures. * Initial functional independence measure 85 on 07/25/2017; decline to 80 as of ; further decline to 75 as of 08/02/2017. Further decline to 64 as of 08/07/2017. Contact guard to minimal assist for bed mobility and transfers. Ambulates with a slow pace in short steps. Has motor planning deficits. Maximal assist for bathing. Decreased initiation. Minimal assist for transfers. Moderate assist for upper and lower body dressing. * Continue PT and OT to optimize mobility and activities of daily living to the independent or modified independent level. 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 * Acute severe worsening of expressive language. Stat head CT 07/28/2017 was unchanged. Discuss[address] with Dr. Rosen, neurosurgery, who advised a trial of levetiracetam in case subclinical seizures were causing her deterioration in language functions. Levetiracetam 500 mg twice daily begun in the evening 2017. * Checked CBC, BMP, TSH, 07/29/2017 with no significant abnormalities to account for neurologic functional change. Discussed with Neurology, Dr. Bonner. Per his advice, obtained MRI, which showed to lacunar infarcts in the left parietal lobe. * Has had some improvement since 07/28/2017 but not recovered to level prior to acute worsening. Moderate expressive and mild to moderate receptive aphasia. Apraxia of speech. Decreased memory and executive function. * Likely to need assistance with medication management and bill paying after discharge. * Continue Speech and Language Pathology. * CVA, lacunar, left parietal lobe, seen on MRI 07/29/2017. Initiated aspirin, . 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 Neurology suspects cardioembolic source but intracranial hemorrhage is too soon to consider anticoagulation. Continue aspirin, statin, blood pressure control. Follow up Cardiology after discharge; follow up neurology with repeat head CT in approximately 2 weeks. * Cough and malaise, 08/05/2017. * CBC, procalcitonin, chest x-ray negative for infection or pneumonia. * Also with itchy eyes. Viral syndrome vs. allergy. * Trial of antihistamine.. * Right hip pain. * Right inferior pubic ramus fracture was demonstrated on CT scanning in the hospital on 07/20/2017. Continue pain control acetaminophen and [place]. * Improving. * Hypertension on lisinopril. * Blood pressure often elevated and sometimes low. Had low blood pressures and increased potassium when lisinopril was increased from 10 q.day to 10 twice a day. * Blood pressure is now adequately controlled on lisinopril 10 mg q.day. * Continue to monitor * Rheumatoid arthritis with considerable debility. Continue prednisone. * Discussed with mis specialist Dr. Moser. She is on rituximab and is coming due for her 2nd dose of 2 doses q.6 month. She can wait until after discharge for her 2nd dose. DISPOSITION: Attended staffing, 15 min. Discussed with case management, dietitian, PT, OT, BEE RAISER. With recent and continued decline, discharge to home is not an option. Considering discharge to assisted facility. Will reassess later this week regarding progress in therapies and discharge disposition. FOLLOWUP: Orthopedic follow-up discussed with Dr. Vick's office. They agree that a pelvic x-ray can be obtained and Dr. Vick will review rather than seeing her in person in clinic. Ordered x-ray for tomorrow, 08/08/2017. She will likely need to follow up with Neurosurgery, Dr. Rosen, as she nears the end of her time period with the cervical collar. Follow up with mis specialist Dr. Moser for rituximab infusion after discharge. Follow up with Cardiology and Neurology as above. PRIMARY CARE DOCTOR: Dr. Quita Gutierrez. 08/04/17 14:59 08/05/17 09:47 08/05/17 13:33 08/08/17 12:01 Subjective: No complaints this morning. Feels that she is doing better. Objective: Vital Signs Temp Pulse Resp BP Pulse Ox 36.7 C 82 16 110/49 L 90 L 08/08/17 06:01 08/08/17 08:00 08/08/17 06:01 08/08/17 08:43 08/08/17 06:01 Laboratory Results 08/05/17 10:44 07/31/17 06:00 08/07/17 08/08/17 08/09/17 05:59 05:59 05:59 Intake Total 0 610 360 Output Total 450 250 Balance 0 160 110 - Time Spent With Patient Time Spent With Patient: Greater than 35 min floor time today, including more than 50% of time in coordination of care during staffing meeting, and counseling patient. Physical Exam - Physical Exam General Appearance: WD/WN, alert, no apparent distress, thin Respiratory: No respiratory distress, No accessory muscle use Cardiac/Chest: No edema Skin: normal color, warm/dry Extremities: other (Marked ulnar deviation of fingers at MCPs.) Neuro/Psych: alert, normal mood/affect, aphasia (Expressive. Able to spontaneously speak simple sentences.) ICD10 Worksheet Patient Problems: Problems Problem Status Onset Acute lacunar infarction Acute Fall Acute Hypertension Acute Traumatic subarachnoid hemorrhage Acute Traumatic subdural hematoma Acute Urinary tract infection Acute
[2017-08-08] MEDS: ACETAMINOPHEN 325 MG TAB PO PRN (22:24)
[2017-08-08] MEDS: ATORVASTATIN CALCIUM 20 MG TAB PO SCH (22:25)
[2017-08-08] MEDS: LATANOPROST 0.005% 2.5 ML OPHT DROPS EACHEYE SCH (22:33)
[2017-08-08] MEDS: CIPROFLOXACIN 250 MG TAB PO SCH (22:37)
[2017-08-09] MEDS: LISINOPRIL 10 MG TAB PO SCH (08:28)
[2017-08-09] MEDS: SENNOSIDES/DOCUSATE SODIUM TAB PO SCH ×2 (08:28→20:50)
[2017-08-09] MEDS: PRESERVISION AREDS2 FORMULA EYE VIT 1 EACH PO SCH ×2 (08:28→17:57)
[2017-08-09] MEDS: ASPIRIN EC 81 MG TAB PO SCH (08:28)
[2017-08-09] MEDS: predniSONE 5 MG TAB PO SCH (08:30)
[2017-08-09] MEDS: levETIRAcetam 500 MG TAB PO SCH ×2 (08:30→20:50)
[2017-08-09] MEDS: predniSONE 1 MG TAB PO SCH (08:31)
[2017-08-09] MEDS: TIMOLOL 0.25% 5 ML OPHT.BTL EACHEYE SCH (08:32)
[2017-08-09] MEDS: CETIRIZINE 10 MG TAB PO SCH (08:32)
[2017-08-09] MEDS: CIPROFLOXACIN 250 MG TAB PO SCH ×2 (10:23→20:50)
--- NOTE | 2017-08-09 10:50 | SOAPPROG ---
JANNETTE Progress Note Assessment/Plan: 82-year-old woman on inpatient rehabilitation initially admitted to [facility] on 07/20/2017 after mechanical fall with left temporal intraparenchymal hemorrhage and subdural hematomas in the left temporal and frontal temporal areas. Hospital course has been complicated by acute worsening of expressive language on 07/28/2017 with follow-up MRI that showed new lacunar infarcts, started on aspirin, and subsequent repeat stroke symptoms that were mostly worsened if a PRINCE on August 06, 2017, found to have new embolic strokes in the left MCA distribution, thought to be cardioembolic in nature. Today, therapy is going well per her report and nothing seems to be interfering. Additional plain films were obtained of the pelvis to be reviewed by Dr. Camejo. No reports yet. Viewed, did not note any new fracture or dislocation, there was some lucency around the hardware on the left, unclear if that is normal given the hip implant location. Decreasing functional independence measure, therapies currently re-evaluating. A total of 35 min was spent on the floor in the care of the patient, the majority of which was spent in counseling coordination of care regarding reassessment after more recent stroke. Additional medical issues reviewed but not changed today include right hip pain , hypertension, rheumatoid arthritis. No change to discharge date for now, plan to re-evaluate with team. 08/06/17 12:32 08/07/17 13:27 08/07/17 13:32 08/09/17 10:47 Subjective: Chief complaint: Rehabilitation progress No acute events overnight. Patient denies any new shortness of breath or chest pain, no new numbness, tingling, or weakness. She has had a decrement in her overall rehab progress, to new neurological stroke events. Patient is upbeat, denies any pain, feels like she is sleeping well. She feels like therapy is going well at this point. Objective: Vital Signs Temp Pulse Resp BP Pulse Ox 36.6 C 80 16 110/60 92 08/09/17 06:28 08/09/17 06:28 08/09/17 06:28 08/09/17 08:28 08/09/17 06:28 Laboratory Results 08/05/17 10:44 07/31/17 06:00 08/08/17 08/09/17 08/10/17 05:59 05:59 05:59 Intake Total 610 1020 Output Total 450 1450 Balance 160 -430 Physical Exam - Physical Exam General Appearance: WD/WN, alert, no apparent distress EENT: No scleral icterus (R), No scleral icterus (L) Respiratory: No respiratory distress, No accessory muscle use Cardiac/Chest: normal peripheral pulses, regular rate, rhythm, No edema Skin: normal color, warm/dry, No cyanosis, No diaphoresis Extremities: non-tender, No pedal edema, No calf tenderness, No swelling Neuro/Psych: alert, normal mood/affect, speech abnormalities, No oriented x 3 ( Still not oriented to date, but is oriented to place and person) ICD10 Worksheet Patient Problems: Problems Problem Status Onset Acute lacunar infarction Acute Fall Acute Hypertension Acute Traumatic subarachnoid hemorrhage Acute Traumatic subdural hematoma Acute Urinary tract infection Acute
[2017-08-09] MEDS: ACETAMINOPHEN 325 MG TAB PO PRN ×2 (12:22→18:36)
[2017-08-09] MEDS: ATORVASTATIN CALCIUM 20 MG TAB PO SCH (20:50)
[2017-08-09] MEDS: LATANOPROST 0.005% 2.5 ML OPHT DROPS EACHEYE SCH (20:52)
[2017-08-10] MEDS: ACETAMINOPHEN 325 MG TAB PO PRN ×2 (07:54→13:24)
[2017-08-10] MEDS: ASPIRIN EC 81 MG TAB PO SCH (07:55)
[2017-08-10] MEDS: PRESERVISION AREDS2 FORMULA EYE VIT 1 EACH PO SCH ×2 (07:55→18:41)
[2017-08-10] MEDS: CETIRIZINE 10 MG TAB PO SCH (07:56)
[2017-08-10] MEDS: levETIRAcetam 500 MG TAB PO SCH ×2 (07:56→20:45)
[2017-08-10] MEDS: LISINOPRIL 10 MG TAB PO SCH (07:56)
[2017-08-10] MEDS: predniSONE 5 MG TAB PO SCH (07:58)
[2017-08-10] MEDS: predniSONE 1 MG TAB PO SCH (07:58)
[2017-08-10] MEDS: TIMOLOL 0.25% 5 ML OPHT.BTL EACHEYE SCH (07:59)
[2017-08-10] MEDS: SENNOSIDES/DOCUSATE SODIUM TAB PO SCH ×2 (07:59→20:45)
--- NOTE | 2017-08-10 12:53 | SOAPPROG ---
SOAP Progress Note Assessment/Plan: Assessment: * CVA, lacunar, left parietal lobe, seen on MRI 07/29/2017. Initiated aspirin, . 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 Neurology suspects cardioembolic source but intracranial hemorrhage is too soon to consider anticoagulation. Continue aspirin, statin, blood pressure control. Follow up Cardiology after discharge; follow up neurology with repeat head CT in approximately 2 weeks. * Debility status post fall 07/20/2017, with TBI, and pelvic and C-spine fractures. * Initial functional independence measure 85 on 07/25/2017; decline to 80 as of ; further decline to 75 as of 08/02/2017. Further decline to 64 as of 08/07/2017. Contact guard to minimal assist for bed mobility and transfers. Ambulates with a slow pace in short steps. Has motor planning deficits. Maximal assist for bathing. Decreased initiation. Minimal assist for transfers. Moderate assist for upper and lower body dressing. * Continue PT and OT to optimize mobility and activities of daily living to the independent or modified independent level. 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 * Acute severe worsening of expressive language. Stat head CT 07/28/2017 was unchanged. Discussed with Dr. Rosen, neurosurgery, who advised a trial of levetiracetam in case subclinical seizures were causing her deterioration in language functions. Levetiracetam 500 mg twice daily begun in the evening 2017. * Checked CBC, BMP, TSH, 07/29/2017 with no significant abnormalities to account for neurologic functional change. Discussed with Neurology, Dr. Bonner. Per his advice, obtained MRI, which showed to lacunar infarcts in the left parietal lobe. * Has had some improvement since 07/28/2017 but not recovered to level prior to acute worsening. Moderate expressive and mild to moderate receptive aphasia. Apraxia of speech. Decreased memory and executive function. * Likely to need assistance with medication management and bill paying after discharge. * Continue Speech and Language Pathology. * Cough and malaise, 08/05/2017. * CBC, procalcitonin, chest x-ray negative for infection or pneumonia. * Also with itchy eyes. Viral syndrome vs. allergy. * Trial of antihistamine.. * Right hip pain. * Right inferior pubic ramus fracture was demonstrated on CT scanning in the hospital on 07/20/2017. Continue pain control acetaminophen and [place]. * Improving. * Hypertension on lisinopril. * Blood pressure often elevated and sometimes low. Had low blood pressures and increased potassium when lisinopril was increased from 10 q.day to 10 twice a day. * Blood pressure is now adequately controlled on lisinopril 10 mg q.day. * Continue to monitor * Rheumatoid arthritis with considerable debility. Continue prednisone. * Discussed with race steward Dr. Moser. She is on rituximab and is coming due for her 2nd dose of 2 doses q.6 month. She can wait until after discharge for her 2nd dose. DISPOSITION: With recent and continued decline, discharge to home is not an option. Considering discharge to alf facility. Will reassess later this week regarding progress in therapies and discharge disposition. FOLLOWUP: Orthopedic follow-up discussed with Dr. Vick's office. They agree that a pelvic x-ray can be obtained and Dr. Vick will review rather than seeing her in person in clinic. Ordered x-ray done 08/08/2017. She will likely need to follow up with Neurosurgery, Dr. Rosen, as she nears the end of her time period with the cervical collar. Follow up with race steward Dr. Moser for rituximab infusion after discharge. Follow up with Cardiology and Neurology as above. PRIMARY CARE DOCTOR: Dr. Quita Gutierrez. 08/10/17 12:52 Subjective: Patient denies any complaints this morning. Slept okay. Pain is better. She feels a language functions are improving. Nurse noted cough and pulmonary wheezing this morning. Objective: Vital Signs Temp Pulse Resp BP Pulse Ox 36.7 C 95 18 125/73 H 91 L 08/09/17 20:00 08/10/17 08:00 08/10/17 08:00 08/10/17 08:00 08/10/17 08:00 Laboratory Results 08/05/17 10:44 07/31/17 06:00 08/09/17 08/10/17 08/11/17 05:59 05:59 05:59 Intake Total 1020 1576 480 Output Total 1450 1100 100 Balance -430 476 380 Physical Exam - Physical Exam General Appearance: WD/WN, alert, no apparent distress, thin Respiratory: normal breath sounds, No crackles, No rhonchi, No wheezing Cardiac/Chest: regular rate, rhythm, No edema, No diastolic murmur, No systolic murmur Skin: normal color, warm/dry Neuro/Psych: alert, normal mood/affect, aphasia (Expressive) ICD10 Worksheet Patient Problems: Problems Problem Status Onset Acute lacunar infarction Acute Fall Acute Hypertension Acute Traumatic subarachnoid hemorrhage Acute Traumatic subdural hematoma Acute Urinary tract infection Acute
[2017-08-10] MEDS: CIPROFLOXACIN 250 MG TAB PO SCH (14:14)
[2017-08-10] MEDS: LATANOPROST 0.005% 2.5 ML OPHT DROPS EACHEYE SCH (20:45)
[2017-08-10] MEDS: ATORVASTATIN CALCIUM 20 MG TAB PO SCH (20:45)
[2017-08-11] MEDS: predniSONE 1 MG TAB PO SCH (07:50)
[2017-08-11] MEDS: PRESERVISION AREDS2 FORMULA EYE VIT 1 EACH PO SCH ×2 (07:50→17:02)
[2017-08-11] MEDS: CETIRIZINE 10 MG TAB PO SCH (07:51)
[2017-08-11] MEDS: SENNOSIDES/DOCUSATE SODIUM TAB PO SCH ×2 (07:51→20:38)
[2017-08-11] MEDS: ASPIRIN EC 81 MG TAB PO SCH (07:51)
[2017-08-11] MEDS: levETIRAcetam 500 MG TAB PO SCH ×2 (07:51→20:38)
[2017-08-11] MEDS: predniSONE 5 MG TAB PO SCH (07:51)
[2017-08-11] MEDS: LISINOPRIL 10 MG TAB PO SCH (07:51)
[2017-08-11] MEDS: TIMOLOL 0.25% 5 ML OPHT.BTL EACHEYE SCH (07:52)
--- NOTE | 2017-08-11 13:52 | SOAPPROG ---
SOAP Progress Note Assessment/Plan: Assessment: * CVA, lacunar, left parietal lobe, seen on MRI 07/29/2017. Initiated aspirin, . 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 Neurology suspects cardioembolic source but intracranial hemorrhage is too soon to consider anticoagulation. Continue aspirin, statin, blood pressure control. Follow up Cardiology after discharge; follow up neurology with repeat head CT in approximately 2 weeks. * Debility status post fall 07/20/2017, with TBI, and pelvic and C-spine fractures. * Initial functional independence measure 85 on 07/25/2017; decline to 80 as of ; further decline to 75 as of 08/02/2017; further decline to 64 as of 08/08, and improvement to 70 as of 08/11/2017. Mobility is generally improved. Standby assist for bed mobility with cues, transfer with standby assist. Ambulated 150 ft with a front wheeled walker slowly or 50 ft if in pain, standby assist. She climbed and descended 3 steps with 1 rail and contact guard assist. She accomplished a car transfer and ambulate outside with standby assist. Upper body dressing requires setup and supervision, lower body standby assist with occasional minimal assist. Transfer to shower required contact assist toileting requires supervision and setup. She has right hemineglect. * Continue PT and OT to optimize mobility and activities of daily living to the independent or modified independent level. 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 * Acute severe worsening of expressive language. Stat head CT 07/28/2017 was unchanged. Discussed with Dr. Rosen, neurosurgery, who advised a trial of levetiracetam in case subclinical seizures were causing her deterioration in language functions. Levetiracetam 500 mg twice daily begun in the evening 2017. * Checked CBC, BMP, TSH, 07/29/2017 with no significant abnormalities to account for neurologic functional change. Discussed with Neurology, Dr. Bonner. Per his advice, obtained MRI, which showed to lacunar infarcts in the left parietal lobe. * Has had some improvement since 07/28/2017 but not recovered to level prior to acute worsening. Moderate expressive and mild to moderate receptive aphasia. Apraxia of speech. Decreased memory and executive function. * Likely to need assistance with medication management and bill paying after discharge. * Continue Speech and Language Pathology. C3 avulsion fracture. * Continue soft collar for 8 weeks, until 09/14/2017. * Cough and malaise, 08/05/2017. * CBC, procalcitonin, chest x-ray negative for infection or pneumonia. * Also with itchy eyes. Viral syndrome vs. allergy. * Trial of antihistamine.. * Right hip pain. * Right inferior pubic ramus fracture was demonstrated on CT scanning in the hospital on 07/20/2017. Continue pain control acetaminophen and [place]. * Had follow-up x-ray on 08/08/2017. Discussed with Dr. Vick, orthopedics. No change in treatment plan at present. Follow-up 4-6 weeks after injury or approximately August 17 to . * Pain is improving. * Hypertension on lisinopril. * Blood pressure often elevated and sometimes low. Had low blood pressures and increased potassium when lisinopril was increased from 10 q.day to 10 twice a day. * Blood pressure is now adequately controlled on lisinopril 10 mg q.day. * Continue to monitor * Rheumatoid arthritis with considerable debility. Continue prednisone. * Discussed with dictating machine mechanic Dr. Moser. She is on rituximab and is coming due for her 2nd dose of 2 doses q.6 month. She can wait until after discharge for her 2nd dose. DISPOSITION: Attended staffing, 15 min. Discussed with case management, nursing, PT, OT, CNA CAREGIVER. Has had some improvement since her diagnoses of new strokes left parietal lobe. 24 hr care is available for her at home but needs 3 days notice prior to discharge. Her son is on vacation til 08/16/2017. Most likely will plan discharge to home with 24 hr care on 08/16/2017. Continue home PT, OT and CNA CAREGIVER. FOLLOWUP: Follow-up with orthopedic surgeon Dr. Vick 4-6 weeks after injury or approximately 08/17 to 08/31/2017.. She will likely need to follow up with Neurosurgery, Dr. Rosen, as she nears the end of her time period with the cervical collar towards mid-September. Follow up with dictating machine mechanic Dr. Moser for rituximab infusion after discharge. Follow up with Cardiology and Neurology as above. PRIMARY CARE DOCTOR: Dr. Quita Gutierrez. 08/11/17 13:39 Subjective: No complaints. Nurse reports that she coughed green sputum. She denies any respiratory difficulty but acknowledges that yes she has cough sputum. She is not in pain. She is sleeping well. No fevers or chills. Objective: Vital Signs Temp Pulse Resp BP Pulse Ox 36.3 C 80 18 125/70 H 94 08/11/17 06:28 08/11/17 06:28 08/11/17 06:28 08/11/17 06:28 08/11/17 06:28 Laboratory Results 08/05/17 10:44 07/31/17 06:00 08/10/17 08/11/17 08/12/17 05:59 05:59 05:59 Intake Total 1576 1865 560 Output Total 1100 750 Balance 476 1115 560 - Time Spent With Patient Time Spent With Patient: Greater than 35 min floor time today, including more than 50% of time in coordination of care during staffing meeting, and counseling patient. Physical Exam - Physical Exam General Appearance: WD/WN, alert, no apparent distress, thin Respiratory: normal breath sounds, No crackles, No rhonchi, No wheezing Cardiac/Chest: regular rate, rhythm, No edema, No diastolic murmur, No systolic murmur Skin: normal color, warm/dry Extremities: other (Ulnar deviation of fingers at MCP joints) Neuro/Psych: alert, normal mood/affect, speech abnormalities (Expressive aphasia ) ICD10 Worksheet Patient Problems: Problems Problem Status Onset Acute lacunar infarction Acute Fall Acute Hypertension Acute Traumatic subarachnoid hemorrhage Acute Traumatic subdural hematoma Acute Urinary tract infection Acute
[2017-08-11] MEDS: ATORVASTATIN CALCIUM 20 MG TAB PO SCH (20:38)
[2017-08-11] MEDS: LATANOPROST 0.005% 2.5 ML OPHT DROPS EACHEYE SCH (21:15)
[2017-08-11] MEDS: HYDROCODONE/APAP 5/325 TAB PO PRN (22:01)
[2017-08-12] MEDS: PRESERVISION AREDS2 FORMULA EYE VIT 1 EACH PO SCH ×2 (08:57→17:28)
[2017-08-12] MEDS: levETIRAcetam 500 MG TAB PO SCH ×2 (08:59→20:31)
[2017-08-12] MEDS: ASPIRIN EC 81 MG TAB PO SCH (08:59)
[2017-08-12] MEDS: CETIRIZINE 10 MG TAB PO SCH (08:59)
[2017-08-12] MEDS: LISINOPRIL 10 MG TAB PO SCH (09:00)
[2017-08-12] MEDS: predniSONE 5 MG TAB PO SCH (09:01)
[2017-08-12] MEDS: SENNOSIDES/DOCUSATE SODIUM TAB PO SCH ×2 (09:01→20:31)
[2017-08-12] MEDS: predniSONE 1 MG TAB PO SCH (09:01)
[2017-08-12] MEDS: TIMOLOL 0.25% 5 ML OPHT.BTL EACHEYE SCH (09:02)
--- NOTE | 2017-08-12 09:46 | SOAPPROG ---
SOAP Progress Note Assessment/Plan: Assessment: * CVA, lacunar, left parietal lobe, seen on MRI 07/29/2017. Initiated aspirin, . 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 Neurology suspects cardioembolic source but intracranial hemorrhage is too soon to consider anticoagulation. Continue aspirin, statin, blood pressure control. Follow up Cardiology after discharge; follow up neurology with repeat head CT in approximately 2 weeks. * Debility status post fall 07/20/2017, with TBI, and pelvic and C-spine fractures. * Initial functional independence measure 85 on 07/25/2017; decline to 80 as of ; further decline to 75 as of 08/02/2017; further decline to 64 as of 08/08, and improvement to 70 as of 08/11/2017. Mobility is generally improved. Standby assist for bed mobility with cues, transfer with standby assist. Ambulated 150 ft with a front wheeled walker slowly or 50 ft if in pain, standby assist. She climbed and descended 3 steps with 1 rail and contact guard assist. She accomplished a car transfer and ambulate outside with standby assist. Upper body dressing requires setup and supervision, lower body standby assist with occasional minimal assist. Transfer to shower required contact assist toileting requires supervision and setup. She has right hemineglect. * Continue PT and OT to optimize mobility and activities of daily living to the independent or modified independent level. 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 * Acute severe worsening of expressive language. Stat head CT 07/28/2017 was unchanged. [address]iscuss[address] with Dr. Rosen, neurosurgery, who advised a trial of levetiracetam in case subclinical seizures were causing her deterioration in language functions. Levetiracetam 500 mg twice daily begun in the evening 2017. * Checked CBC, BMP, TSH, 07/29/2017 with no significant abnormalities to account for neurologic functional change. Discussed with Neurology, Dr. Bonner. Per his advice, obtained MRI, which showed to lacunar infarcts in the left parietal lobe. * Has had some improvement since 07/28/2017 but not recovered to level prior to acute worsening. Moderate expressive and mild to moderate receptive aphasia. Apraxia of speech. Decreased memory and executive function. * Likely to need assistance with medication management and bill paying after discharge. * Continue Speech and Language Pathology. C3 avulsion fracture. * Continue soft collar for 8 weeks, until 09/14/2017. * Cough and malaise, 08/05/2017. * CBC, procalcitonin, chest x-ray negative for infection or pneumonia. * Also with itchy eyes. Viral syndrome vs. allergy. * Trial of antihistamine.. * Right hip pain. * Right inferior pubic ramus fracture was demonstrated on CT scanning in the hospital on 07/20/2017. Continue pain control acetaminophen and [place]. * Had follow-up x-ray on 08/08/2017. Discussed with Dr. Vick, orthopedics. No change in treatment plan at present. Follow-up 4-6 weeks after injury or approximately August 17 to . * Pain is improving. Using hydrocodone/acetaminophen very occasionally less than daily, last used evening of 08/11/2017. * Hypertension on lisinopril. * Blood pressure often elevated and sometimes low. Had low blood pressures and increased potassium when lisinopril was increased from 10 q.day to 10 twice a day. * Blood pressure is now adequately controlled on lisinopril 10 mg q.day. * Continue to monitor * Rheumatoid arthritis with considerable debility. Continue prednisone. * Discussed with peeler operator Dr. Moser. She is on rituximab and is coming due for her 2nd dose of 2 doses q.6 month. She can wait until after discharge for her 2nd dose. DISPOSITION: Has had some improvement since her diagnoses of new strokes left parietal lobe. 24 hr care is available for her at home but needs 3 days notice prior to discharge. Her son is on vacation until 08/16/2017. Most likely will plan discharge to home with 24 hr care on 08/16/2017. 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 FOLLOWUP: Follow-up with orthopedic surgeon Dr. Vick 4-6 weeks after injury or approximately 08/17 to 08/31/2017.. She will likely need to follow up with Neurosurgery, Dr. Rosen, as she nears the end of her time period with the cervical collar towards mid-September. Follow up with peeler operator Dr. Moser for rituximab infusion after discharge. Follow up with Cardiology and Neurology as above. PRIMARY CARE DOCTOR: Dr. Quita Gutierrez. 08/12/17 09:43 Subjective: Walking is improving and she feels good about that. She was frustrated this morning that she still needs assistance for dressing. Sleeping well. Right hip pain is much better. She feels she is communicating better. Objective: Vital Signs Temp Pulse Resp BP Pulse Ox 36.4 C 80 16 121/69 H 93 08/12/17 05:44 08/12/17 05:44 08/12/17 05:44 08/12/17 09:00 08/12/17 05:44 Laboratory Results 08/05/17 10:44 07/31/17 06:00 08/11/17 08/12/17 08/13/17 05:59 05:59 05:59 Intake Total 1865 1060 Output Total 750 500 Balance 1115 560 Physical Exam - Physical Exam General Appearance: WD/WN, alert, no apparent distress, thin Respiratory: normal breath sounds, No crackles, No rhonchi, No wheezing Cardiac/Chest: regular rate, rhythm, No edema, No diastolic murmur, No systolic murmur Skin: normal color, warm/dry Neuro/Psych: alert, normal mood/affect, speech abnormalities (Improved spontaneous expression) ICD10 Worksheet Patient Problems: Problems Problem Status Onset Acute lacunar infarction Acute Fall Acute Hypertension Acute Traumatic subarachnoid hemorrhage Acute Traumatic subdural hematoma Acute Urinary tract infection Acute
[2017-08-12] MEDS: ATORVASTATIN CALCIUM 20 MG TAB PO SCH (20:31)
[2017-08-12] MEDS: LATANOPROST 0.005% 2.5 ML OPHT DROPS EACHEYE SCH (20:37)
[2017-08-13] MEDS: levETIRAcetam 500 MG TAB PO SCH ×2 (08:22→21:44)
[2017-08-13] MEDS: ASPIRIN EC 81 MG TAB PO SCH (08:22)
[2017-08-13] MEDS: SENNOSIDES/DOCUSATE SODIUM TAB PO SCH ×2 (08:22→21:44)
[2017-08-13] MEDS: CETIRIZINE 10 MG TAB PO SCH (08:22)
[2017-08-13] MEDS: PRESERVISION AREDS2 FORMULA EYE VIT 1 EACH PO SCH ×2 (08:22→17:36)
[2017-08-13] MEDS: LISINOPRIL 10 MG TAB PO SCH (08:22)
[2017-08-13] MEDS: predniSONE 5 MG TAB PO SCH (08:23)
[2017-08-13] MEDS: predniSONE 1 MG TAB PO SCH (08:23)
[2017-08-13] MEDS: TIMOLOL 0.25% 5 ML OPHT.BTL EACHEYE SCH (08:28)
[2017-08-13] MEDS: HYDROCODONE/APAP 5/325 TAB PO PRN ×2 (09:46→23:08)
--- NOTE | 2017-08-13 14:06 | HOSPPROG ---
Hospitalist Progress Note Assessment/Plan: Assessment: 82 yo F p/w mechanical fall 2/2 CVA w/ resultant traumatic fractures Plan: # CVA, lacunar, left parietal lobe. MRI 07/29/2017, recurrent embolic CVAs in posterior circulation on left seen on MRI of 08/06/2017 -Neurology suspects cardioembolic source but intracranial hemorrhage is too soon to consider anticoagulation -Continue aspirin, statin, blood pressure control -Follow up Cardiology after discharge; follow up neurology with repeat head CT in approximately 2 weeks. # TBI. Ongoing speech/cognitive therapy # C3 avulsion fracture. * Continue soft collar for 8 weeks, until 09/14/2017. # Sinus congestion. Suspected viral syndrome or seasonal allergies, trial anti- histamine # Pubic ramus fracture. X-ray w/ mild further displacement in R rami -f/u Dr. Vick -pain control w/ alternating norco and tylenol # Chronic Hypertension. Cont on lisinopril. # Chronic Rheumatoid arthritis with considerable debility. Continue prednisone. -outpt 2nd dose of rituxan Diet. Per CUT PRESSMAN Code. Full PPx. SCDs Dispo. ADD 08/16 to home w/ 27/09 care, requiring ongoing therapy. Subjective: patient hungry, reports pain well controlled Objective: Vital Signs Temp Pulse Resp BP Pulse Ox 36.5 C 80 16 110/62 93 08/13/17 06:08 08/13/17 06:08 08/13/17 06:08 08/13/17 06:08 08/13/17 06:08 Laboratory Results 08/05/17 10:44 07/31/17 06:00 08/12/17 08/13/17 08/14/17 05:59 05:59 05:59 Intake Total 1060 1400 200 Output Total 500 500 Balance 560 900 200 - Physical Exam Constitutional: no apparent distress, not in pain, chronically ill appearing, No uncomfortable Ears, Nose, Mouth, Throat: other (in soft collar) Cardiovascular: regular rate and rhythym, no murmur, rub, or gallop, No edema Respiratory: no respiratory distress, no rales or rhonchi, clear to auscultation Gastrointestinal: normoactive bowel sounds, soft, non-tender abdomen, no palpable masses, No distension Neurologic: AAOx3, sensation intact bilaterally, No facial droop Psychiatric: interacting appropriately, not anxious, not encephalopathic, thought process linear ICD10 Worksheet Patient Problems: Problems Problem Status Onset Traumatic subarachnoid hemorrhage Acute Traumatic subdural hematoma Acute Fall Acute Hypertension Acute Urinary tract infection Acute Acute lacunar infarction Acute
[2017-08-13] MEDS: ACETAMINOPHEN 325 MG TAB PO PRN (17:36)
[2017-08-13] MEDS: LATANOPROST 0.005% 2.5 ML OPHT DROPS EACHEYE SCH (21:44)
[2017-08-13] MEDS: ATORVASTATIN CALCIUM 20 MG TAB PO SCH (21:44)
[2017-08-14] MEDS: CETIRIZINE 10 MG TAB PO SCH (08:35)
[2017-08-14] MEDS: LISINOPRIL 10 MG TAB PO SCH (08:36)
[2017-08-14] MEDS: levETIRAcetam 500 MG TAB PO SCH ×2 (08:36→21:25)
[2017-08-14] MEDS: PRESERVISION AREDS2 FORMULA EYE VIT 1 EACH PO SCH ×2 (08:37→17:54)
[2017-08-14] MEDS: ASPIRIN EC 81 MG TAB PO SCH (08:37)
[2017-08-14] MEDS: predniSONE 5 MG TAB PO SCH (08:37)
[2017-08-14] MEDS: SENNOSIDES/DOCUSATE SODIUM TAB PO SCH ×2 (08:38→21:26)
[2017-08-14] MEDS: predniSONE 1 MG TAB PO SCH (08:39)
[2017-08-14] MEDS: TIMOLOL 0.25% 5 ML OPHT.BTL EACHEYE SCH (08:39)
[2017-08-14] MEDS: ACETAMINOPHEN 325 MG TAB PO PRN ×3 (08:44→21:31)
--- NOTE | 2017-08-14 13:11 | HOSPPROG ---
Hospitalist Progress Note Assessment/Plan: Assessment: 82 yo F p/w mechanical fall 2/2 CVA w/ resultant traumatic fractures Plan: # CVA, lacunar, left parietal lobe. MRI 07/29/2017, recurrent embolic CVAs in posterior circulation on left seen on MRI of 08/06/2017 -Neurology suspects cardioembolic source but intracranial hemorrhage is too soon to consider anticoagulation -Continue aspirin, statin, blood pressure control -Follow up Cardiology after discharge; follow up neurology with repeat head CT in approximately 2 weeks. # TBI. Ongoing speech/cognitive therapy # C3 avulsion fracture. Pain well controlled -Continue soft collar for 8 weeks, until 09/14/2017. # Sinus congestion. Suspected viral syndrome or seasonal allergies, trial anti- histamine successful # Pubic ramus fracture. X-ray w/ mild further displacement in R rami -f/u Dr. Vick -pain control w/ alternating norco and tylenol # Chronic Hypertension. Cont on lisinopril. # Chronic Rheumatoid arthritis with considerable debility. Continue prednisone. -outpt 2nd dose of rituxan Diet. Per OBSERVATION NURSE Code. Full PPx. SCDs Dispo. ADD 08/16 to home w/ 27/09 care, requiring ongoing therapy. Subjective: patient reports good pain mgmt, engaging well w/ therapy, no complaints Objective: Vital Signs Temp Pulse Resp BP Pulse Ox 36.6 C 82 14 123/68 H 92 08/14/17 05:45 08/14/17 05:45 08/14/17 05:45 08/14/17 08:36 08/14/17 05:45 Laboratory Results 08/05/17 10:44 07/31/17 06:00 08/13/17 08/14/17 08/15/17 05:59 05:59 05:59 Intake Total 1400 900 750 Output Total 500 525 Balance 900 375 750 - Physical Exam Constitutional: no apparent distress, not in pain, chronically ill appearing, No uncomfortable Ears, Nose, Mouth, Throat: other (soft collar) Cardiovascular: systolic murmur (I/ at apex), No irregularly irregular, No tachycardia, No edema Respiratory: no respiratory distress, no rales or rhonchi, clear to auscultation Gastrointestinal: normoactive bowel sounds, soft, non-tender abdomen, no palpable masses Neurologic: AAOx3, sensation intact bilaterally, No weakness (motor 5/5 bilat UE /LE), No facial droop Psychiatric: interacting appropriately, not anxious, not encephalopathic, thought process linear ICD10 Worksheet Patient Problems: Problems Problem Status Onset Traumatic subarachnoid hemorrhage Acute Traumatic subdural hematoma Acute Fall Acute Hypertension Acute Urinary tract infection Acute Acute lacunar infarction Acute
[2017-08-14] MEDS: ATORVASTATIN CALCIUM 20 MG TAB PO SCH (21:24)
[2017-08-14] MEDS: LATANOPROST 0.005% 2.5 ML OPHT DROPS EACHEYE SCH (21:24)
[2017-08-15] MEDS: ACETAMINOPHEN 325 MG TAB PO PRN ×2 (05:39→19:50)
[2017-08-15] MEDS: LISINOPRIL 10 MG TAB PO SCH (08:04)
[2017-08-15] MEDS: PRESERVISION AREDS2 FORMULA EYE VIT 1 EACH PO SCH ×2 (08:04→17:38)
[2017-08-15] MEDS: CETIRIZINE 10 MG TAB PO SCH (08:04)
[2017-08-15] MEDS: ASPIRIN EC 81 MG TAB PO SCH (08:07)
[2017-08-15] MEDS: predniSONE 1 MG TAB PO SCH (08:07)
[2017-08-15] MEDS: levETIRAcetam 500 MG TAB PO SCH ×2 (08:07→20:10)
[2017-08-15] MEDS: predniSONE 5 MG TAB PO SCH (08:07)
[2017-08-15] MEDS: TIMOLOL 0.25% 5 ML OPHT.BTL EACHEYE SCH (08:08)
[2017-08-15] MEDS: SENNOSIDES/DOCUSATE SODIUM TAB PO SCH ×2 (08:08→20:10)
--- NOTE | 2017-08-15 11:54 | SOAPPROG ---
SOAP Progress Note Assessment/Plan: Assessment: * CVA, lacunar, left parietal lobe, seen on MRI 07/29/2017. Initiated aspirin, . 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 Neurology suspects cardioembolic source but intracranial hemorrhage is too soon to consider anticoagulation. Continue aspirin, statin, blood pressure control. Follow up Cardiology after discharge; follow up neurology with repeat head CT in approximately 2 weeks. * Debility status post fall 07/20/2017, with TBI, and pelvic and C-spine fractures. * Initial functional independence measure 85 on 07/25/2017; decline to 80 as of ; further decline to 75 as of 08/02/2017; further decline to 64 as of 08/08, and improvement to 70 as of 08/11/2017. Mobility is generally improved. Standby assist for bed mobility with cues, transfer with standby assist. Ambulated 150 ft with a front wheeled walker slowly or 50 ft if in pain, standby assist. She climbed and descended 3 steps with 1 rail and contact guard assist. She accomplished a car transfer and ambulate outside with standby assist. Upper body dressing requires setup and supervision, lower body standby assist with occasional minimal assist. Transfer to shower required contact assist toileting requires supervision and setup. She has right hemineglect. * Continue PT and OT to optimize mobility and activities of daily living to the independent or modified independent level. 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 * Acute severe worsening of expressive language. Stat head CT 07/28/2017 was unchanged. Discussed with Dr. Rosen, neurosurgery, who advised a trial of levetiracetam in case subclinical seizures were causing her deterioration in language functions. Levetiracetam 500 mg twice daily begun in the evening 2017. * Checked CBC, BMP, TSH, 07/29/2017 with no significant abnormalities to account for neurologic functional change. Discussed with Neurology, Dr. Bonner. Per his advice, obtained MRI, which showed to lacunar infarcts in the left parietal lobe. * Has had some improvement since 07/28/2017 but not recovered to level prior to acute worsening. Moderate expressive and mild to moderate receptive aphasia. Apraxia of speech. Decreased memory and executive function. * Likely to need assistance with medication management and bill paying after discharge. * Continue Speech and Language Pathology. C3 avulsion fracture. * Continue soft collar for 8 weeks, until 09/14/2017. * Cough and malaise, 08/05/2017. * CBC, procalcitonin, chest x-ray negative for infection or pneumonia. * Also with itchy eyes. Viral syndrome vs. allergy. * Trial of antihistamine.. * Right hip pain. * Right inferior pubic ramus fracture was demonstrated on CT scanning in the hospital on 07/20/2017. Continue pain control acetaminophen and [place]. * Had follow-up x-ray on 08/08/2017. Discussed with Dr. Vick, orthopedics. No change in treatment plan at present. Follow-up 4-6 weeks after injury or approximately August 17 to . * Pain is improving. Using hydrocodone/acetaminophen very occasionally less than daily, last used evening of 08/13/2017. * Hypertension on lisinopril. * Blood pressure often elevated and sometimes low. Had low blood pressures and increased potassium when lisinopril was increased from 10 q.day to 10 twice a day. * Blood pressure is now adequately controlled on lisinopril 10 mg q.day. * Continue to monitor * Rheumatoid arthritis with considerable debility. Continue prednisone. * Discussed with foreign service teacher Dr. Moser. She is on rituximab and is coming due for her 2nd dose of 2 doses q.6 month. She can wait until after discharge for her 2nd dose. DISPOSITION: Has had some improvement since her diagnoses of new strokes left parietal lobe. 24 hr care is available for her at home but needs 3 days notice prior to discharge. Her son is on vacation until 08/16/2017. Plan discharge to home with 24 hr care on 08/16/2017. 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 FOLLOWUP: Follow-up with orthopedic surgeon Dr. Vick 4-6 weeks after injury or approximately 08/17 to 08/31/2017.. She will likely need to follow up with Neurosurgery, Dr. Rosen, as she nears the end of her time period with the cervical collar towards mid-September. Follow up with foreign service teacher Dr. Moser for rituximab infusion after discharge. Follow up with Cardiology and Neurology as above. PRIMARY CARE DOCTOR: Dr. Quita Gutierrez. 08/15/17 11:52 Subjective: No complaints. Says she is sleeping well. Still has some pelvic pain but is not limiting her activities. Objective: Vital Signs Temp Pulse Resp BP Pulse Ox 36.4 C 78 16 124/60 H 93 08/15/17 06:08 08/15/17 06:08 08/15/17 06:08 08/15/17 08:04 08/15/17 06:08 Laboratory Results 08/05/17 10:44 07/31/17 06:00 08/14/17 08/15/17 08/16/17 05:59 05:59 05:59 Intake Total 900 1650 356 Output Total 525 150 Balance 375 1500 356 Physical Exam - Physical Exam General Appearance: WD/WN, alert, no apparent distress Respiratory: No respiratory distress, No accessory muscle use Skin: normal color, warm/dry Neuro/Psych: no motor/sensory deficits, alert, normal mood/affect, abnormal gait (Slightly wide-based and slow, step through pattern, with front wheeled walker, accompanied by physical therapist.), aphasia (Expressive) ICD10 Worksheet Patient Problems: Problems Problem Status Onset Acute lacunar infarction Acute Fall Acute Hypertension Acute Traumatic subarachnoid hemorrhage Acute Traumatic subdural hematoma Acute Urinary tract infection Acute
--- NOTE | 2017-08-15 14:08 | PDOREHIP ---
Admission [facility] - Admission - 3 Day Assessment Period Admission Date/Day 1: 07/22/17 Day 2: 07/23/17 Day 3: 07/24/17 Discharge [facility] - Discharge - 3 Day Assessment Period 2 Days Prior to Anticipated Discharge Date: 08/14/17 1 Day Prior to Anticipated Discharge Date: 08/15/17 Anticipated Discharge Date: 08/16/17 - Discharge Skin Conditions Unhealed Pressure Ulcer (1 or more/Stage 1 or >)-Discharge: 0. No
[2017-08-15 18:07] VITALS: BP 115/63
[2017-08-15] MEDS: LATANOPROST 0.005% 2.5 ML OPHT DROPS EACHEYE SCH (20:10)
[2017-08-15] MEDS: ATORVASTATIN CALCIUM 20 MG TAB PO SCH (20:10)
--- NOTE | 2017-08-16 22:32 | GDS ---
[f rep st] DISCHARGE SUMMARY ADMITTING DIAGNOSIS: Traumatic brain injury and C3 avulsion fracture, status post fall. DISCHARGE DIAGNOSIS: Traumatic brain injury and C3 avulsion fracture, status post fall. OTHER DISCHARGE DIAGNOSIS: Cerebrovascular accident. HISTORY AND HOSPITAL COURSE: This patient was initially admitted for rehabilitation after being hospitalized for a fall in which she tripped over a neighbor's cat. She suffered a traumatic brain injury with hemorrhage into the left temporal lobe and subdural hematomas, and also a C3 avulsion fracture and a pelvic fracture. She was placed in a soft cervical collar for 8 weeks for the cervical fracture. The pelvic fracture did not require surgery. She had considerable improvement in mobility during her stay. Her initial functional independence measure was 85, on 07/25/2017, which was consistent with assisted living level of function. She mostly required contact guard assist for mobility and ADLs, but she needed cues for cervical spine precautions and required minimal to moderate assist for dressing. Speech Therapy noted decreased new learning, attention, executive function, and memory. She was able to have 70% accuracy with bill pay activities, and she was noted to have [id number] word-finding difficulty. She had an abrupt decline in her language functions, though mobility continued to be good. Her functional independence measure on 07/29/2017 had declined to 80. Her expressive aphasia was considerably worse and she had disorientation. She was sent for a head CT which ruled out intracranial hemorrhage and returned to inpatient rehabilitation unit. Subsequently, she had a further decline in language functions. She had an MRI done which showed a lacunar cerebrovascular accident in the left parietal lobe. On discussion with Neurology, she was begun on aspirin. She had a further decline in her language function with another brain MRI done, which showed more lacunar infarctions in the left parietal lobe. Imaging of her head and neck circulatory system showed stenosis of the right carotid artery which might have been protective of the right brain from a cardioembolic shower. Given her recent brain hemorrhages, she was not considered a candidate for anticoagulation at that time and after an observation stay and a neurology consult at [facility], she was returned to inpatient rehabilitation. She subsequently had some improvement in her function. Her mobility improved to the standby assist level overall. She was able to walk 150 feet with a front -wheeled walker. She was able to climb 3 steps with 1 rail with contact guard assist. She accomplished a car transfer with standby assist. Regarding activities of daily living, she was generally at the contact guard assist level or better. For lower body dressing, she required occasional minimal assist for balance. She required maximal assist for bathing. She was noted to have a right hemineglect. She had some improvement in her aphasia. It was more an expressive than a receptive aphasia. She would become perseverative if she failed to be able to express herself. She had decreased recall. During her rehabilitation stay, pelvic pain from her fracture improved and mostly resolved. After her 1st episode of decreased verbal expression and CT scan without extension of hemorrhage, after conferring with Neurology and Neurosurgery, it was felt that this might represent a subclinical seizure, for which she was started on levetiracetam. She initially appeared to be stabilized. DISCHARGE PLAN: 1. Condition upon discharge is good. 2. Activity: Ad celestino, but she will need standby assistance for mobility and mobility related activities of daily living with more assistance required for bathing. 3. Diet is regular. MEDICATIONS UPON DISCHARGE: 1. Enteric-coated aspirin 81 mg p.o. daily. 2. Atorvastatin 20 mg p.o. q.h.s. 3. PreserVision multivitamin 2 b.i.d. with meals. 4. Cetirizine 10 mg p.o. daily. 5. Hydrocodone/acetaminophen 5/325, 1-2 tabs q.4 hours as needed for pelvic pain. 6. Latanoprost 0.005% eyedrops 1 drop each eye at bedtime. 7. Levetiracetam 500 mg p.o. twice daily. 8. Prednisone 5.5 mg p.o. daily. 9. Timolol 0.25% 1 drop each eye daily. 10. Acetaminophen 650 mg p.o. q.4 hours as needed. 11. Polyethylene glycol daily as needed. 12. Senna/docusate 1-2 tabs b.i.d. 13. Lisinopril 10 mg p.o. daily. ISSUES TO BE ADDRESSED AT FOLLOWUP: 1. 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 Quita Gutierrez, regarding her progress. 2. C3 cervical spine avulsion fracture. She is to wear a cervical collar for 8 weeks' total or into the beginning of September. She will follow up with neurosurgeon, Dr. Rosen. 3. Pelvic fracture. She has been doing well in terms of mobility and pain. She will follow up with orthopedic surgeon, Dr. Vick. 4. Rheumatoid arthritis has been stable during her stay. She will follow up with date puller, Dr. Moser. 5. Possible seizures. Follow up with Neurology and Neurosurgery. Anticonvulsant might not be helping especially once strokes were diagnosed. Greater than 30 minutes was spent on this discharge including medication reconciliation, coordination of care, and counseling patient and her son. /[id number]/MODL MTDD
== END 2017-08-16 14:15 | disposition short-term general hospital (02) | DRG 945 ==
LOC: BREH 18:10
PROVIDERS: ADMIT Internal Medicine; ATTEND Internal Medicine
PROC: F0636ZZ Communicative/Cognitive Integration Skills Treatment of Neurological System - Whole Body (ICD-10-PCS; principal; 2017-07-22)
PROC: F08Z7ZZ Vocational Activities and Functional Community or Work Reintegration Skills Treatment (ICD-10-PCS; principal; 2017-07-22)
PROC: F07M3ZZ Motor Function Treatment of Musculoskeletal System - Whole Body (ICD-10-PCS; principal; 2017-07-22)
PROC: F08Z4ZZ Home Management Treatment (ICD-10-PCS; principal; 2017-07-22)
DX: S06.350D Traumatic hemorrhage of left cerebrum without loss of consciousness, subsequent encounter (principal); S06.5X0D Traumatic subdural hemorrhage without loss of consciousness, subsequent encounter; S06.6X0D Traumatic subarachnoid hemorrhage without loss of consciousness, subsequent encounter; S12.29 Other fracture of third cervical vertebra; S32.501D Unspecified fracture of right pubis, subsequent encounter for fracture with routine healing; S32.519D Fracture of superior rim of unspecified pubis, subsequent encounter for fracture with routine healing; I63.9 Cerebral infarction, unspecified; M06.9 Rheumatoid arthritis, unspecified; I10 Essential (primary) hypertension; R47.01 Aphasia; R09.02 Hypoxemia; Z98.1 Arthrodesis status; Z96.651 Presence of right artificial knee joint; Z96.642 Presence of left artificial hip joint; Z79.52 Long term (current) use of systemic steroids; Z79.899 Other long term (current) drug therapy
CPT/HCPCS: 92507-GN; 92508-GN; 92523-GN; 97110-GO; 97110-GP; 97112-GP; 97116-GP; 97162-GP; 97164-GP; 97166-GO; 97168-GO; 97530-GO; 97530-GP; 97535-GO; G0515-GO; J7512

== ENCOUNTER 2017-08-06 12:49 | Observation (INO) | payer OTHER ==
--- NOTE | 2017-08-06 13:14 | EDPHY ---
H & P - Personal History Current Tetanus/Diphtheria Vaccine: Unsure Current Tetanus Diphtheria and Acellular Pertussis (TDAP): Unsure - Medical/Surgical History Hx Asthma: No Hx Chronic Respiratory Disease: No Hx Diabetes: No Hx Cardiac Disease: No Hx Renal Disease: No Hx Cirrhosis: No Hx Alcoholism: No Hx HIV/AIDS: No Hx Splenectomy or Spleen Trauma: No Other PMH: RA/HTN - Social History Smoking Status: Never smoked Time Seen by Provider: 08/06/17 13:13 HPI/ROS: CHIEF COMPLAINT: Sent to ED from inpatient rehab for worsening speech patterns and orientation HISTORY OF PRESENT ILLNESS: The patient is an 82-year-old female recently admitted to the hospital for intracranial hemorrhage following a fall. She was treated non operatively. She was noted to have small lacunar infarcts on a brain MRI. She was eventually transferred to rehab. She is currently on aspirin therapy. The patient was seen by a new physician at rehab today. Nursing staff reports that the patient has had a change in her speech pattern, level of orientation and cognition. The patient has had some chronic leukocytosis. She has had a recent chest x-ray which demonstrated no evidence of pneumonia. Recent urinalysis demonstrated no evidence of an infection. She was referred to the ED for further workup and evaluation. The patient has no acute complaints in the emergency department. She does report that she has had some difficulty with her speech today but feels that that is improving. She denies fever, cough, acute abdominal pain or dysuria. The patient does seem to be confused and is felt to be somewhat of a unreliable historian. REVIEW OF SYSTEMS: A comprehensive 10 point review of systems is otherwise negative aside from elements mentioned in the history of present illness. (Sam Reyna) - Physical Exam Exam: General Appearance: Elderly female, no acute distress Head: Normocephalic atraumatic Neck: In soft cervical collar Eyes: Pupils equal and round no pallor or injection ENT, Mouth: Mucous membranes moist Respiratory: There are no retractions, lungs are clear to auscultation Cardiovascular: Regular rate and rhythm Gastrointestinal: Abdomen is soft and nontender, no masses, bowel sounds normal Neurological: Moves all 4 extremities with 5/5 strength, sensation intact to light touch Skin: Warm and dry, no rashes Musculoskeletal: Neck is supple nontender Extremities: symmetrical, full range of motion (Sam Reyna) Constitutional: Initial Vital Signs Temperature (C) 36.5 C 08/06/17 12:49 Heart Rate 88 08/06/17 12:49 Respiratory Rate 16 08/06/17 12:49 Blood Pressure 132/90 H 08/06/17 12:49 O2 Sat (%) 95 08/06/17 12:49 O2 Delivery Mode Room Air Allergies/Adverse Reactions: No Known Allergies Allergy (Unverified 07/20/17 13:40) Home Medications: Medication Instructions Recorded Lisinopril [Zestril 10 mg (*)] 10 mg PO DAILY 07/20/17 predniSONE 5 mg PO DAILY 07/20/17 Acetaminophen [Tylenol 325mg (*)] 650 mg PO Q4HRS PRN tab 07/22/17 Ondansetron Odt [Zofran Odt 4 mg 4 mg PO Q4HRS PRN tab 07/22/17 (*)] Polyethylene Glycol 3350 [Miralax 17 gm PO DAILY PRN pkt 07/22/17 17 gm (*)] Sennosides/Docusate Sodium 1 - 2 tab PO BID tab 07/22/17 [Senokot-S] Aspirin EC [Aspirin EC 81 mg (*)] 81 mg PO DAILY #0 tab 08/06/17 Atorvastatin Calcium [Lipitor 20 20 mg PO HS #0 tab 08/06/17 mg (*)] C/E/Zn/Cu/OM3/DHA/EPA/LUT/ZEAX 2 each PO BIDMEAL #0 cap 08/06/17 [Preservision Areds 2 Softgel] Cetirizine [ZyrTEC 10 mg (*)] 10 mg PO DAILY #0 tab 08/06/17 Hydrocodone/APAP 5/325 [[place]ff[place] 1 - 2 tab PO Q4HRS PRN #0 tab 08/06/17 5/325 (*)] Latanoprost 0.005% [Xalatan 0.005% 1 drops EACHEYE HS #0 opht.btl 08/06/17 (*)] Timolol 0.25% [TIMOPTIC 0.25% (*)] 1 drops EACHEYE DAILY opht.btl 08/06/17 levETIRAcetam [Keppra 500 mg (*)] 500 mg PO BID #0 tab 08/06/17 predniSONE 0.5 mg PO DAILY tab 08/06/17 Medical Decision Making - Diagnostics EKG Interpretation: EKG time is 5:49 p.m.; EKG shows a narrow complex normal sinus tachycardia with a ventricular rate of 113. Right bundle branch block noted. The VT, QT intervals are within normal limits. There are no ST-T wave changes indicative of ischemic or injury pattern. No evidence of right heart strain. Interpreted by me. (Carina Bah) Imaging Results: Imaging Impressions Chest X-Ray 08/06/17 13:06 Impression: Nothing acute identified. No evidence for pneumonia or failure. Head CT 08/06/17 13:06 Impression: Improvement. No evidence for recurrent hemorrhage. Results called to Dr. Rafael Reyna at 1:51 PM General information for patients regarding this examination can be found at [email or web address]. If you have questions or comments about this report, please contact me at (hospital) or [phone] (cell). Brain MRI 08/06/17 14:13 Impression: There is evidence that the patient has had a new shower of emboli in the distribution of the left posterior middle cerebral artery. Results discussed with Dr. Rafael Reyna at 3:08 PM Neck CTA 08/06/17 15:09 Impression: 1. There is a critical right internal carotid artery stenosis over a 2 cm length in excess of 90% MDS (interestingly the side opposite the shower emboli demonstrated on the [facility] MR images from earlier this afternoon). 2. Atherosclerotic features of the proximal left internal carotid artery, without a hemodynamically significant stenosis. 3. Patent vertebral arteries. CT ANGIOGRAPHY OF THE BRAIN: The major vessels of the [place] are well visualized, and there is no aneurysm, vascular malformation, flow-limiting stenosis, or acute occlusion identified. The distal cervical, petrous, cavernous , and supraclinoid portions of the internal carotid arteries are patent, with some atherosclerotic calcific plaque seen in association with the cavernous portions. The A1 and A2 segments are patent as are the M1, M2, and M3 trifurcation vessels. With regards to the posterior circulation, the distal vertebral arteries are patent. The posterior inferior cerebellar arteries, vertebrobasilar confluence, basilar artery, superior cerebellar arteries, and the posterior cerebral arteries are patent. The posterior cerebral arteries are patent. The dural venous sinuses appear patent. Impression: Mild atherosclerotic features, with no acute intra-arterial thrombus or hemodynamically significant stenosis. CT Source Data: There is some mild peribronchial thickening and biapical pleural parenchymal fibrosis. The visualized superior mediastinal structures are unremarkable. The visualized prevertebral soft tissues are normal. Extensive degenerative features are noted throughout the cervical spine, with a trace degenerative anterolisthesis at C2-C3, trace C5-C6 posterolisthesis, trace degenerative C7-T1 anterolisthesis, trace degenerative T2-T3 anterolisthesis, and trace T3-T4 anterolisthesis. The degree of degenerative disk space narrowing is most pronounced at C3-C4, C4-C5, C5-C6, and C6-C7. Please reference the MR findings from earlier this afternoon for discussion of the brain. Measurement of carotid stenosis is based on the residual internal carotid diameter with [place] Symptomatic Carotid Endarterectomy Trial (NASCET) based stenosis levels. Findings were discussed with Carina Etienne MD at 17:11, on 08/06/2017. Head CTA 08/06/17 15:10 Impression: 1. There is a critical right internal carotid artery stenosis over a 2 cm length in excess of 90% MDS (interestingly the side opposite the shower emboli demonstrated on the [facility] MR images from earlier this afternoon). 2. Atherosclerotic features of the proximal left internal carotid artery, without a hemodynamically significant stenosis. 3. Patent vertebral arteries. CT ANGIOGRAPHY OF THE BRAIN: The major vessels of the [place] are well visualized, and there is no aneurysm, vascular malformation, flow-limiting stenosis, or acute occlusion identified. The distal cervical, petrous, cavernous , and supraclinoid portions of the internal carotid arteries are patent, with some atherosclerotic calcific plaque seen in association with the cavernous portions. The A1 and A2 segments are patent as are the M1, M2, and M3 trifurcation vessels. With regards to the posterior circulation, the distal vertebral arteries are patent. The posterior inferior cerebellar arteries, vertebrobasilar confluence, basilar artery, superior cerebellar arteries, and the posterior cerebral arteries are patent. The posterior cerebral arteries are patent. The dural venous sinuses appear patent. Impression: Mild atherosclerotic features, with no acute intra-arterial thrombus or hemodynamically significant stenosis. CT Source Data: There is some mild peribronchial thickening and biapical pleural parenchymal fibrosis. The visualized superior mediastinal structures are unremarkable. The visualized prevertebral soft tissues are normal. Extensive degenerative features are noted throughout the cervical spine, with a trace degenerative anterolisthesis at C2-C3, trace C5-C6 posterolisthesis, trace degenerative C7-T1 anterolisthesis, trace degenerative T2-T3 anterolisthesis, and trace T3-T4 anterolisthesis. The degree of degenerative disk space narrowing is most pronounced at C3-C4, C4-C5, C5-C6, and C6-C7. Please reference the MR findings from earlier this afternoon for discussion of the brain. Measurement of carotid stenosis is based on the residual internal carotid diameter with [place] Symptomatic Carotid Endarterectomy Trial (NASCET) based stenosis levels. Findings were discussed with Carina Etienne MD at 17:11, on 08/06/2017. ED Course/Re-evaluation: The patient presents to the ED with changes in her normal speech pattern. The patient is currently recovering from an intracranial hemorrhage from a fall. She was also noted to have subacute lacunar infarcts on a recent MRI of her brain. The patient has no focal motor deficits appreciated on exam. A CT scan of the head demonstrates no progressive hemorrhage or mass effect. The patient is noted to have evidence of urinary tract infection without clinical evidence of pyelonephritis or sepsis. I discussed the case with Dr. Lucia from rehab. He would like the patient to undergo an MRI to exclude any progressive ischemia. If this is abnormal he would prefer consultation with Neurology. If the MRI is stable he is comfortable with the patient being transferred back to the rehab unit. (Sam Reyna) I took over care of this patient at 3:00 p.m.. This patient presented to the emergency department with worsening dysphagia. MRI of the brain obtained today demonstrates new infarcts in the left MCA distribution. The patient is currently on aspirin. CT angiogram of the brain and neck will be obtained. Neurology will then be consulted on further management. 5:15 p.m., spoke with staff radiologist Dr. Moise Billingsley who interpreted the CT angio of the brain and the neck. A critical proximal right internal carotid artery stenosis is seen. There is some plaque in the left internal carotid artery but no hemodynamically significant stenosis. The left MCA is open. Shower emboli noted in the left parietal cortex. Vertebral arteries clear. Please see his report above further details. Neurology paged. 5:45 p.m., spoke with on-call neurologist Dr. Hopkins. Case discussed in detail. I reviewed the patient's MRI and CT results. At this time Dr. Hopkins does not recommend admission. There is not much that can be done in the way of further anticoagulation given her history of recent intracranial hemorrhage. An echocardiogram and EKG can be obtained. However, regardless of atrial fibrillation or thrombus seen on echocardiogram the patient cannot be anticoagulated. 5:50 p.m., spoke with Dr. Lucia. Discussed my conversation with Neurology as well as emergency department workup. He does not feel comfortable taking this patient back on his service although he will. He feels that the minute his staff sees there is something different about the patient she will be sent right back to the emergency department. That said, I spoke with the hospitalist service, Dr. Rae. They have agreed to admit this patient. They will discuss with Dr. Lucia as well as Neurology and the patient's family further steps in her care. The patient's remaining emergency department course under my care has been uneventful. She was admitted to the hospitalist service in stable condition. Her neurologic condition has remained unchanged throughout her emergency department course. (Carina Bah) Differential Diagnosis: Differential diagnosis considered includes worsening intracranial hemorrhage, STEAM GIGGER mass effect, metabolic abnormality, urinary tract infection, pneumonia, ischemic stroke, hemorrhagic stroke (Sam Reyna) - Data Points Laboratory Results: Laboratory Results 08/06/17 12:50 08/06/17 12:50 08/06/17 08/06/17 08/06/17 13:23 12:50 12:50 WBC 15.16 10^3/uL H 10^3/uL (3.80-9.50) RBC 4.37 10^6/uL 10^6/uL (4.18-5.33) Hgb 13.3 g/dL g/dL (12.6-16.3) Hct 40.8 % % (38.0-47.0) MCV 93.4 fL fL (81.5-99.8) MCH 30.4 pg pg (27.9-34.1) MCHC 32.6 g/dL g/dL (32.4-36.7) RDW 14.3 % % (11.5-15.2) Plt Count 515 10^3/uL H 10^3/uL (150-400) MPV 8.9 fL fL (8.7-11.7) Neut % (Auto) 88.8 % H % (39.3-74.2) Lymph % (Auto) 3.6 % L % (15.0-45.0) [place] % (Auto) 5.4 % % (4.5-13.0) Eos % (Auto) 1.4 % % (0.6-7.6) Baso % (Auto) 0.3 % % (0.3-1.7) Nucleat RBC Rel Count 0.0 % % (0.0-0.2) Absolute Neuts (auto) 13.46 10^3/uL H 10^3/uL (1.70-6.50) Absolute Lymphs (auto) 0.55 10^3/uL L 10^3/uL (1.00-3.00) Absolute Monos (auto) 0.82 10^3/uL H 10^3/uL (0.30-0.80) Absolute Eos (auto) 0.21 10^3/uL 10^3/uL (0.03-0.40) Absolute Basos (auto) 0.05 10^3/uL 10^3/uL (0.02-0.10) Absolute Nucleated RBC 0.00 10^3/uL 10^3/uL (0-0.01) Immature Gran % 0.5 % % (0.0-1.1) Immature Gran # 0.08 10^3/uL 10^3/uL (0.00-0.10) RBC/WBC/PLT Morphology TNP Platelet Estimate TNP Sodium 137 mEq/L mEq/L (135-145) Potassium 4.8 mEq/L mEq/L (3.3-5.0) Chloride 97 mEq/L mEq/L (97-110) Carbon Dioxide 27 mEq/l mEq/l (22-31) Anion Gap 13 mEq/L mEq/L (8-16) BUN 18 mg/dL mg/dL (7-23) Creatinine 0.5 mg/dL L mg/dL (0.6-1.0) Estimated GFR > 60 Glucose 91 mg/dL mg/dL (70-100) Calcium 9.3 mg/dL mg/dL (8.5-10.4) Urine Color YELLOW Urine Appearance HAZY Urine pH 6.0 (5.0-7.5) Ur Specific [place] 1.009 (1.002-1.030) Urine Protein NEGATIVE (NEGATIVE) Urine Ketones NEGATIVE (NEGATIVE) Urine Blood NEGATIVE (NEGATIVE) Urine Nitrate POSITIVE H (NEGATIVE) Urine Bilirubin NEGATIVE (NEGATIVE) Urine Urobilinogen NEGATIVE EU EU (0.2-1.0) Ur Leukocyte Esterase 2+ H (NEGATIVE) Urine RBC 5-10 /hpf H /hpf (0-3) Urine WBC 50-182 /hpf H /hpf (0-3) Ur Epithelial Cells TRACE /lpf /lpf (NONE-1+) Urine Bacteria 4+ /hpf H /hpf (NONE SEEN) Urine Mucus TRACE /lpf /lpf (NONE-1+) Urine Glucose 1+ H (NEGATIVE) Medications Given: Discontinued Medications Ceftriaxone Sodium/Dextrose (Rocephin 1 Gm (Premix)) 50 mls @ 100 mls/hr IV EDNOW ONE PRN Reason: Protocol Stop: 08/06/17 14:35 Last Admin: 08/06/17 14:10 Dose: 50 mls Departure - Departure Disposition: [facility] Inpatient Acute Clinical Impression: Traumatic subarachnoid hemorrhage, Traumatic subdural hematoma, Urinary tract infection, Acute lacunar infarction
[2017-08-06 13:25] LABS: PLATELET COUNT 515 10^3/uL (150-400)
[2017-08-06] MEDS ORDERED: IOPAMIDOL (ISOVUE 370) 100 ML BTL IV ONE (15:35)
--- NOTE | 2017-08-06 17:51 | CPEKG ---
Heart Rate: 113 RR Interval: 531 P-R Interval: 120 QRSD Interval: 116 QT Interval: 340 QTC Interval: 467 P Reva: 60 QRS Reva: 39 T Wave Reva: 36 EKG Severity - ABNORMAL ECG - EKG Impression: SINUS TACHYCARDIA EKG Impression: ATRIAL PREMATURE COMPLEX EKG Impression: RIGHT BUNDLE BRANCH BLOCK Electronically Signed By: Carina Bah 06-Aug-2017 18:59:57
[2017-08-06] MEDS ORDERED: ACETAMINOPHEN 325 MG TAB PO PRN (20:34)
[2017-08-06] MEDS ORDERED: ONDANSETRON 4 MG/2 ML VIAL IVP PRN (20:34)
[2017-08-06] MEDS ORDERED: oxyCODONE IR 5 MG TAB PO PRN (20:34)
[2017-08-06] MEDS ORDERED: ONDANSETRON DISINTEGRATING 4 MG TAB PO PRN ×2 (20:34→20:35)
[2017-08-06] MEDS ORDERED: POLYETHYLENE GLYCOL 3350 17 GM PKT PO PRN (20:35)
[2017-08-06] MEDS ORDERED: ATORVASTATIN CALCIUM 20 MG TAB PO SCH (21:00)
[2017-08-06] MEDS ORDERED: LATANOPROST 0.005% 2.5 ML OPHT DROPS EACHEYE SCH (21:00)
[2017-08-06] MEDS: levETIRAcetam 500 MG TAB PO SCH (21:37)
[2017-08-06] MEDS: HYDROCODONE/APAP 5/325 TAB PO PRN (21:37)
[2017-08-06] MEDS: SENNOSIDES/DOCUSATE SODIUM TAB PO SCH (21:37)
--- NOTE | 2017-08-06 22:48 | GHP ---
[f rep st] HISTORY AND PHYSICAL DATE OF ADMISSION: 08/06/2017 CHIEF COMPLAINT: "I was sent over here." HISTORY: This is an 82-year-old female who has a past medical history of rheumatoid arthritis and hy pertension and was sent to the ER for evaluation from inpatient rehab. Patient has been in inpatient rehab since a mechanical fall on July 20. At that time, she had tripped over a neighbor's cat and suffered injuries including a right intraparenchymal hemorrhage, subdural hematoma, and subarachnoid hemorrhage. She also had a C3 fracture that she is currently in a soft collar for. There was concer n at rehab that she was regressing in function with worsening aphasia and was sent to the ER for furt her evaluation. In the ER, it was noted that she has new embolic strokes and was therefore admitted for further evaluation. At the time my evaluation, patient denies any symptoms. She does have some notable expressive aphasi a, but otherwise is quite communicative. She denies any pain, cough, urinary symptoms. PAST MEDICAL HISTORY: Includes: 1. Rheumatoid arthritis, for which she is on chronic steroids. 2. Hypertension. 3. Recent intraparenchymal hemorrhage, subdural hematoma, and subarachnoid hemorrhage status post fa ll. 4. Pubic rami fracture. 5. C3 fracture. PAST SURGICAL HISTORY: Right knee replacement and left hip replacement. FAMILY HISTORY: Parents are . SOCIAL HISTORY: The patient has currently been in inpatient rehab since 07/22/2017. Prior to that, she was living alone. 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 REVIEW OF SYSTEMS: A 10-point review of systems obtained, negative except as per HPI. CURRENT MEDICATIONS: Include: 1. Prednisone. 2. Keppra. 3. Timolol. 4. Senna. 5. Polyethylene glycol. 6. Zofran. 7. Lisinopril. 8. Xalatan. 9. [place]. 10. Cetirizine. 11. PreserVision. 12. Atorvastatin. 13. Aspirin. 14. Tylenol. ALLERGIES: No known drug allergies. PHYSICAL EXAM: VITAL SIGNS: BP 137/69, heart rate 105, respiratory rate 18, O2 sats 100% on room ai r. Temperature is 36.4. GENERAL APPEARANCE: This is an elderly female. She is awake and alert. S he is in no acute distress. EYES: Anicteric. HENT: Oropharynx is clear. There is a soft collar o n. CARDIOVASCULAR: Regular rate and rhythm, tachycardic. PULMONARY: CTA bilaterally. ABDOMEN: S oft, nontender. Positive bowel sounds. EXTREMITIES: No clubbing, cyanosis, or edema. SKIN: Warm, dry, well perfused. NEURO/PSYCH: Patient is oriented and appropriate. She has occasional expressi ve aphasia. Strength and sensation seem to be intact. Cranial nerves are intact. CLINICAL DATA: EKG personally reviewed and interpreted, showing sinus tachycardia. Head CT personally reviewed and interpreted, shows no evidence for recurrent hemorrhage. Brain MRI shows new emboli in distribution of the left posterior MCA. Head and neck CTA shows critical right internal carotid artery stenosis, otherwise cervical disk dege neration and disk space narrowing. LAB STUDIES: White blood cell count of 15, platelets of 515. Chemistry is unremarkable. UA showing 50 to 180 white blood cells, 2+ leukocyte esterase, 4+ bacteria. ASSESSMENT AND PLAN: This is an 82-year-old female with a past medical history of rheumatoid arthrit is, as well as a recent intracranial hemorrhage status post mechanical fall, presenting with new onse t embolic cerebrovascular accident. 1. Embolic cerebrovascular accident. This is in the distribution of the left posterior middle cereb ral artery. She does have critical right internal carotid artery stenosis interestingly. She is sindi ng monitored on telemetry. Neurology has been consulted and initially states that there is not much else that can be done for these issues given her recent bleed. They will formally consult in the [facility]. She does have slightly worsened functional status and worsening aphasia per rehab staff. She will be monitored overnight and likely return to rehab for ongoing treatment. 2. Recent intracranial hemorrhage. This is status post fall. Again, patient is noted to have new o nset embolic CVA, but given recent bleed is not a good candidate for anticoagulation. 3. Bacteria. Cultures were not drawn in the ER, but these have been added on. However, she has alr sonali received a dose of antibiotics. We will continue ceftriaxone for the time being. She does not have any real urinary symptoms, but her decline in functional status could be in part related to UTI and therefore will treat at least pending final culture data. 4. C3 fracture. Patient is in a soft collar and will remain in one until 09/13/2017. She does have followup with neurosurgery arranged. 5. Rheumatoid arthritis. We will continue her prednisone. 6. Leukocytosis in the setting of urinary tract infection and also chronically elevated WBCs. We wi ll trend, but this does seem to be actually near her baseline. 7. Thrombocytosis. Platelets have been more elevated the last couple of days. Again, only infectio us finding would be her UTI at this point. We will trend overnight. 8. Constipation. We will continue bowel protocol. 9. Disposition. Observation status. 10. Code status: This is a full code. This will need to be addressed during this hospitalization. Unclear if patient is able to make these decisions at this point. 11. Patient is new to my care. Old records reviewed, summarized as per HPI and past medical history . Care plan reviewed with ER doc as per above. /[id number]/MODL
[2017-08-07] MEDS ORDERED: PRESERVISION AREDS2 FORMULA EYE VIT 1 EACH PO SCH (08:00)
[2017-08-07] MEDS ORDERED: predniSONE 1 MG TAB PO SCH (09:00)
[2017-08-07] MEDS ORDERED: LISINOPRIL 10 MG TAB PO SCH (09:00)
[2017-08-07] MEDS ORDERED: ASPIRIN EC 81 MG TAB PO SCH (09:00)
[2017-08-07] MEDS ORDERED: TIMOLOL 0.25% 5 ML OPHT.BTL EACHEYE SCH (09:00)
[2017-08-07] MEDS ORDERED: CETIRIZINE 10 MG TAB PO SCH (09:00)
[2017-08-07] MEDS ORDERED: predniSONE 5 MG TAB PO SCH (09:00)
[2017-08-07] MEDS: SENNOSIDES/DOCUSATE SODIUM TAB PO SCH (09:39)
[2017-08-07] MEDS: HYDROCODONE/APAP 5/325 TAB PO PRN (09:40)
[2017-08-07] MEDS: levETIRAcetam 500 MG TAB PO SCH (09:40)
--- NOTE | 2017-08-07 10:18 | NEUROPROG ---
Assessment: HOSPITAL NEUROLOGY CONSULT REQUESTING: Latasha Fletcher MD REASON: stroke HPI: 82 year old woman with a history of rheumatoid arthritis, HTN, HLD, chronic leukocytosis presented to our facility in readmission due to worsening language function. She was admitted to our facility on 07/20 after a mechanical fall resulting in head trauma without LOC. She was having problems with expressive language function at that time. On ER evaluation she was found to have left temporal IPH with surrounding SAH and ipsilateral juxtatentorial SDH without any mass effect. No surgical intervention was undertaken and she was supported with BP control an started on levetiracetam for seizure prophylaxis in the setting of TBI. She was also found to have a C3 facet fracture, which was treated with a soft collar. She was also found to have a pubic ramus fracture, which was managed conservatively. She was discharged to IP rehab on 07/22. She returned to the ED yesterday, 08/06, at the behest of her rehab team due to worsening aphasia. In the ED CT head wo was done showing resolving ICH, but an MRI brain wo was done showing multiple scattered cortical/juxtacortical/ subcortical areas of punctate left parietal acute ischemic stroke. CTA head/ neck revealed critical COSME stenosis > 90%, mild noncritical/nonhemodynamically significant stenosis < 30% of LICA, and mild calcific intracranial atherosclerotic disease of the intracranial arteries without any critical findings. The rehab team was apprehensive to continue her therapy and so admission was requested. Patient is feeling quite well and energetic this morning. She does continue to have expressive language difficulties, but denies SÁNCHEZ, nausea, visual disturbance , weakness, sensory loss, slurred speech, gait changes. She is eager to go back to rehab. ROS: As per the HPI, otherwise a complete 12 point ROS was performed and is negative ALLERGIES AND MEDS: As recorded in the EMR - reviewed and reconciled PFSH: As per the intake H&P by Dr. Fletcher from 08/06 EXAM: VS reviewed in EMR GEN: thin elderly woman sitting in NAD HEENT: right parietal scalp laceration repiared and healing well, sclera anicteric, conjunctiva not injected, MMM, oropharynx clear, no scalp tenderness NECK: patient in soft collar MSK: severe deviation of digits in all extremities CV: RRR s1 s2 wo m/r/c/g. Carotid pulses 2+ wo bruit NEURO: MS: awake, alert, oriented to self, place, but not date or situation. Speech nondysarthric. She has expressive language dysfunction on spontaneous speech manifest as paraphasic errors and hestation, but can name, read, repeat and comprehend. Follows commands. Attends to both sides. Difficult to assess memory due to aphasia. Mood euthymic. Unable to assess fund of knowledge. CN: pupils 3mm round and reactive. Unable to visualize fundi. VFF. Primary gaze centered. Restricted vertical gaze, but horizontal intact. Facial sensation preserved. Face symmetric. Hearing grossly intact to finger rub. Palatoglossal movements intact. Shoulder shrug and head turn strong. MOTOR: reduced bulk throughout, normal tone. No adventitial movements. Full power throughout. SENSORY: intact LT/PP in all extremities. No extinction. COORD: no ataxia FN/HS. Unable to assess Luciano due to joint deformities. REFLEX: severe joint deformity in toes preclude accurate Babinski testing. No clonus. Absent ankle jerks due to activation, other DTRS 3/4. GAIT: deferred to PT safety eval DATA REVIEW: Labs reviewed in EMR PERSONALLY INTERPRETED RESULTS AND DATA: MRI brain wo - as per the HPI CTA head/neck - as per the HPI CT head wo - as per HPI IMPRESSION AND RECOMMENDATIONS: // ACUTE ISCHEMIC STROKE // APHASIA // TRAUMATIC BRAIN INJURY WITH INTRACRANIAL HEMORRHAGE // HTN // HLD Patient with left hemispheric ischemic strokes invoking a mechanism of proximal embolization. The left anterior circulation does not demonstrate and critical findings which would be culprit. I highly suspect cardioembolism. Her COSME stenosis likely protected her right hemisphere from being involved. This is a challenging situation since she has a suspected cardioembolic stroke, but also very recent intracranial hemorrhage. I do not think it would be safe to anticoagulate at this time, but certainly we would consider this once her ICH has fully healed (she is only 2 weeks out from her hemorrhage). She is already being managed from a HTN standpoint, and she is on statin therapy. Her EKG didn't capture afib. Would recommend she continue on ASA 81g daily for now. Goal normotension with BP at least < 130/80 - intervene for SBPs > 160. Cont statin for goal LDL < 70. Will need diabetes screening for goal A1c < 6.5, but can be done as outpatient. Cont levetiracetam per prior neurosurgery recommendations for seizure prophylaxis in setting of TBI. Will need cardiology evaluation for afib - can be done as outpatient since we will not be intervening at this time - I think we can defer TTE until then, as she is hemodynamically stable and we wouldn't be able to safely intervene on a finding of thrombus (ie anticoagulate). 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 Stroke education. Follow up PCP within 1 week of discharge for ongoing evaluation/optimization of vascular risk factors. Follow up cardiology within 1 week discharge for evaluation of afib. Follow up neurology 2 weeks after discharge - will plan on repeat CT head wo at that time and if ICH remains resolved then we can clear her for anticoagulation (which would give her at least 4+ weeks from her trauma). Follow up neurosurgery as previously planned. Objective: Vital Signs Temp Pulse Resp BP Pulse Ox 37.1 C 114 H 18 147/72 H 90 L 08/07/17 07:54 08/07/17 07:54 08/07/17 07:54 08/07/17 09:40 08/07/17 07:54 Laboratory Results 08/07/17 04:40 08/06/17 08/07/17 08/08/17 05:59 05:59 05:59 Intake Total 100 Output Total 650 Balance -550 Allergies/Adverse Reactions: No Known Allergies Allergy (Unverified 07/20/17 13:40)
--- NOTE | 2017-08-07 11:47 | PDIAF ---
- Diagnosis Diagnosis: cva Code Status: Full Code - Medication Management Discharge Medications: Medications to Continue on Transfer Lisinopril [Zestril 10 mg (*)] 10 mg PO DAILY 07/20/17 [Last Taken 08/06/17 09: 30] predniSONE 5 mg PO DAILY 07/20/17 [Last Taken 08/06/17 09:30] Acetaminophen [Tylenol 325mg (*)] 650 mg PO Q4HRS PRN tab 07/22/17 [Last Taken 08/06/17 09:30] Ondansetron Odt [Zofran Odt 4 mg (*)] 4 mg PO Q4HRS PRN tab 07/22/17 [Last Taken Unknown] Polyethylene Glycol 3350 [Miralax 17 gm (*)] 17 gm PO DAILY PRN pkt 07/22/17 [ Last Taken 08/04/17 03:00] Sennosides/Docusate Sodium [Senokot-S] 1 - 2 tab PO BID tab 07/22/17 [Last Taken 08/06/17 09:30] Aspirin EC [Aspirin EC 81 mg (*)] 81 mg PO DAILY #0 tab 08/06/17 [Last Taken 04/24 09:30] Atorvastatin Calcium [Lipitor 20 mg (*)] 20 mg PO HS #0 tab 08/06/17 [Last Taken 08/05/17 21:00] C/E/Zn/Cu/OM3/DHA/EPA/LUT/ZEAX [Preservision Areds 2 Softgel] 2 each PO BIDMEAL #0 cap 08/06/17 [Last Taken 08/06/17 09:30] Cetirizine [ZyrTEC 10 mg (*)] 10 mg PO DAILY #0 tab 08/06/17 [Last Taken 09:30] Hydrocodone/APAP 5/325 [[place] 5/325 (*)] 1 - 2 tab PO Q4HRS PRN #0 tab 08/06/17 [Last Taken 08/05/17 06:00] Latanoprost 0.005% [Xalatan 0.005% (*)] 1 drops EACHEYE HS #0 opht.btl 08/06/17 [Last Taken 08/05/17 21:00] Timolol 0.25% [TIMOPTIC 0.25% (*)] 1 drops EACHEYE DAILY opht.btl 08/06/17 [ Last Taken 08/06/17 09:30] levETIRAcetam [Keppra 500 mg (*)] 500 mg PO BID #0 tab 08/06/17 [Last Taken 04/24 09:30] predniSONE 0.5 mg PO DAILY tab 08/06/17 [Last Taken 08/06/17 09:30] Acetaminophen [Tylenol 325mg (*)] 650 mg PO Q4HRS PRN tab 08/07/17 [Last Taken Unknown] Discharge Medications: Refer to the Discharge Home Medication list for PRN reason. PICC Care - Routine: N/A - Orders Services needed: Registered Nurse, Physical Therapy, Occupational Therapy Diet Recommendation: no restrictions on diet - Follow Up Care Current Providers and Referrals: Patient,NotPresent [Primary Care Provider] -
--- NOTE | 2017-08-07 11:57 | PDIAF ---
- Diagnosis Diagnosis: cva Code Status: Full Code - Medication Management Discharge Medications: Medications to Continue on Transfer Lisinopril [Zestril 10 mg (*)] 10 mg PO DAILY 07/20/17 [Last Taken 08/06/17 09: 30] predniSONE 5 mg PO DAILY 07/20/17 [Last Taken 08/06/17 09:30] Acetaminophen [Tylenol 325mg (*)] 650 mg PO Q4HRS PRN tab 07/22/17 [Last Taken 08/06/17 09:30] Ondansetron Odt [Zofran Odt 4 mg (*)] 4 mg PO Q4HRS PRN tab 07/22/17 [Last Taken Unknown] Polyethylene Glycol 3350 [Miralax 17 gm (*)] 17 gm PO DAILY PRN pkt 07/22/17 [ Last Taken 08/04/17 03:00] Sennosides/Docusate Sodium [Senokot-S] 1 - 2 tab PO BID tab 07/22/17 [Last Taken 08/06/17 09:30] Aspirin EC [Aspirin EC 81 mg (*)] 81 mg PO DAILY #0 tab 08/06/17 [Last Taken 04/24 09:30] Atorvastatin Calcium [Lipitor 20 mg (*)] 20 mg PO HS #0 tab 08/06/17 [Last Taken 08/05/17 21:00] C/E/Zn/Cu/OM3/DHA/EPA/LUT/ZEAX [Preservision Areds 2 Softgel] 2 each PO BIDMEAL #0 cap 08/06/17 [Last Taken 08/06/17 09:30] Cetirizine [ZyrTEC 10 mg (*)] 10 mg PO DAILY #0 tab 08/06/17 [Last Taken 09:30] Hydrocodone/APAP 5/325 [[place] 5/325 (*)] 1 - 2 tab PO Q4HRS PRN #0 tab 08/06/17 [Last Taken 08/05/17 06:00] Latanoprost 0.005% [Xalatan 0.005% (*)] 1 drops EACHEYE HS #0 opht.btl 08/06/17 [Last Taken 08/05/17 21:00] Timolol 0.25% [TIMOPTIC 0.25% (*)] 1 drops EACHEYE DAILY opht.btl 08/06/17 [ Last Taken 08/06/17 09:30] levETIRAcetam [Keppra 500 mg (*)] 500 mg PO BID #0 tab 08/06/17 [Last Taken 04/24 09:30] predniSONE 0.5 mg PO DAILY tab 08/06/17 [Last Taken 08/06/17 09:30] Acetaminophen [Tylenol 325mg (*)] 650 mg PO Q4HRS PRN tab 08/07/17 [Last Taken Unknown] Ciprofloxacin [Cipro] 500 mg PO BID #4 tab 08/07/17 [Last Taken Unknown] Discharge Medications: Refer to the Discharge Home Medication list for PRN reason. PICC Care - Routine: N/A - Orders Services needed: Registered Nurse, Physical Therapy, Occupational Therapy Diet Recommendation: no restrictions on diet - Labs/Radiology CBC w/diff Date: 08/09/17 - Follow Up Care Current Providers and Referrals: Patient,NotPresent [Primary Care Provider] -
[2017-08-07 12:07] VITALS: BP 140/66
--- NOTE | 2017-08-07 12:25 | GDS ---
[f rep st] DISCHARGE SUMMARY CHIEF COMPLAINT: Weakness. CONSULTATIONS: Neurology, Dr. Nelson Hopkins STUDIES/PROCEDURES: 1. CT angio of the head and neck. 2. MRI of the brain. 3. CT of the head. PHYSICAL EXAMINATION: GENERAL: The patient is alert. VITAL SIGNS: Afebrile at 37.1, pulse is 99, respiratory rate is 18, blood pressure is 147/72. She is saturating 90% on room air. I have seen an d evaluated the patient on the day of discharge. HOSPITAL COURSE: Patient is an 82-year-old female who has a history of stroke. She presented to the emergency room from inpatient rehab, secondary to difficulty speaking. She was evaluated and diagno sed with: 1. Acute ischemic stroke. This is likely embolic. She did receive a consultation from Neurology [facility] this hospitalization. It is difficult to treat the patient with an embolic stroke, secondary to the fact that she has history of intracranial hemorrhage. We will continue her previously prescribe d aspirin, as well as monitor her blood pressure and continue her statin. Her symptoms have complete ly resolved since admission. She will require outpatient followup with Cardiology for evaluation of atrial fibrillation. 2. Recent intracranial hemorrhage. Again, the patient is not appropriate for anticoagulating therap ies. 3. Pyuria. The patient demonstrates signs of urinary tract infection. Urine culture preliminarily shows no growth. She has been treated with Rocephin during this hospitalization and will continue on Cipro for total of 2 more days. 4. Leukocytosis. Patient does have chronically elevated white count. We will treat for presumed ur inary tract infection with further laboratory evaluation in the future. 5. History of rheumatoid arthritis. Her prednisone has been continued. 6. C3 fracture. She will continue her soft collar as previously prescribed by Neurosurgery. 7. Thrombocytosis. We will continue to follow laboratory evaluation after disposition. DISPOSITION: Patient will be discharged to return to inpatient rehabilitation given need for further therapies and evaluation. Patient is in agreement with this plan. I reviewed this with Dr. Neslon pak of Neurology. Patient's disposition has been arranged with Case Management. PENDING STUDIES: Include urine culture, as well as laboratory evaluation. /[id number]/MODL
== END 2017-08-07 12:44 ==
LOC: EDUNIT# → F3N 19:59
PROVIDERS: ADMIT Internal Medicine; ATTEND Internal Medicine
DX: I63.412 Cerebral infarction due to embolism of left middle cerebral artery (principal); S06.350D Traumatic hemorrhage of left cerebrum without loss of consciousness, subsequent encounter; S06.5X0D Traumatic subdural hemorrhage without loss of consciousness, subsequent encounter; S06.6X0D Traumatic subarachnoid hemorrhage without loss of consciousness, subsequent encounter; I65.21 Occlusion and stenosis of right carotid artery; N39.0 Urinary tract infection, site not specified; D47.3 Essential (hemorrhagic) thrombocythemia; D72.829 Elevated white blood cell count, unspecified; S12.29 Other fracture of third cervical vertebra; S01.01XD Laceration without foreign body of scalp, subsequent encounter; S32.509D Unspecified fracture of unspecified pubis, subsequent encounter for fracture with routine healing; W01.0XXD Fall on same level from slipping, tripping and stumbling without subsequent striking against object, subsequent encounter; M06.9 Rheumatoid arthritis, unspecified; I77.89 Other specified disorders of arteries and arterioles; K59.00 Constipation, unspecified; I10 Essential (primary) hypertension; Z79.82 Long term (current) use of aspirin; Z79.52 Long term (current) use of systemic steroids; Z96.651 Presence of right artificial knee joint; Z96.642 Presence of left artificial hip joint
CPT/HCPCS: 70450; 70496; 70498; 70551; 71046; 93005; 97116; 97161; 97166; G0378; G8978; G8979; G8987; G8988; G8989; J0696; J7512; Q9967; 96365

== ENCOUNTER 2017-08-20 11:16 | Emergency (ER) | payer OTHER ==
[2017-08-20] MEDS ORDERED: NS 500 ML IV ONE (11:51)
--- NOTE | 2017-08-20 11:51 | EDPHY ---
H & P Time Seen by Provider: 08/20/17 11:34 HPI/ROS: CHIEF COMPLAINT: Blood in urine HISTORY OF PRESENT ILLNESS: Patient is an 82-year-old female with the complicated recent history. Approximately a month ago she fell and had intracranial hemorrhage. She was admitted to the ICU and then to rehab. 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 She then developed urinary tract infection and was admitted to the [facility]. After symptoms improved she was sent back to rehab. She presents today because she has noticed some bright red blood in her urine. She has no abdominal pain. No fevers or chills. No flank pain. Patient has had a mild cough. No shortness of breath. REVIEW OF SYSTEMS: My complete review of systems is negative except as mentioned in the HPI. Past Medical/Surgical History: Includes rheumatoid arthritis, hypertension, CVA, intracranial hemorrhage, urinary tract infection Smoking Status: Never smoked Physical Exam: 37.2, 150/66, 122, 18, 90% on room air GENERAL: Well-appearing, in no acute distress, alert. HEENT: Eyes normal to inspection, normal pharynx, no signs of dehydration. NECK: No thyromegaly, no lymphadenopathy, supple. Soft neck brace in place RESPIRATORY: Clear to auscultation bilaterally, no rales, rhonchi or wheezing. CVS: Regular rate and rhythm, no rubs, murmurs, or gallops. ABDOMEN: Soft, nontender, nondistended, no organomegaly. Benign. BACK: Normal to inspection, no CVA tenderness. SKIN: Normal color, no rash, warm, dry. No pallor. EXTREMITIES: RA changes. No pedal edema, no calf tenderness, no Homans sign or cords, no joint swelling. NEURO/PSYCH: Alert and oriented, normal mood and affect, normal motor sensory exam. No obvious cranial nerve deficit. Constitutional: Initial Vital Signs Temperature (C) 37.2 C 08/20/17 11:26 Heart Rate 122 H 08/20/17 11:26 Respiratory Rate 18 08/20/17 11:26 Blood Pressure 150/66 H 08/20/17 11:26 O2 Sat (%) 90 L 08/20/17 11:26 O2 Delivery Mode Room Air Allergies/Adverse Reactions: No Known Allergies Allergy (Unverified 07/20/17 13:40) Home Medications: Medication Instructions Recorded Acetaminophen [Tylenol 325mg (*)] 650 mg PO Q4HRS PRN tab 07/22/17 Polyethylene Glycol 3350 [Miralax 17 gm PO DAILY PRN pkt 07/22/17 17 gm (*)] Sennosides/Docusate Sodium 1 - 2 tab PO BID tab 07/22/17 [Senokot-S] Aspirin EC [Aspirin EC 81 mg (*)] 81 mg PO DAILY tab 08/15/17 Atorvastatin Calcium [Lipitor 20 20 mg PO HS #30 tab 08/15/17 mg (*)] C/E/Zn/Cu/OM3/DHA/EPA/LUT/ZEAX 2 each PO BIDMEAL cap 08/15/17 [Preservision Areds 2 Softgel] Cetirizine [ZyrTEC 10 mg (*)] 10 mg PO DAILY tab 08/15/17 Hydrocodone/APAP 5/325 [[place] 1 - 2 tab PO Q4HRS PRN #14 tab 08/15/17 5/325 (*)] Latanoprost 0.005% [Xalatan 0.005% 1 drops EACHEYE HS #1 opht.btl 08/15/17 (*)] Lisinopril [Zestril 10 mg (*)] 10 mg PO DAILY #30 tab 08/15/17 Timolol 0.25% [TIMOPTIC 0.25% (*)] 1 drops EACHEYE DAILY #1 opht.btl 08/15/17 levETIRAcetam [Keppra 500 mg (*)] 500 mg PO BID #60 tab 08/15/17 predniSONE 0.5 mg PO DAILY #15 tab 08/15/17 predniSONE 5 mg PO DAILY #30 tab 08/15/17 Cephalexin [Keflex (*)] 250 mg PO QID 7 Days cap 08/20/17 Cephalexin [Keflex (*)] 500 mg PO QID #12 cap 08/20/17 Medical Decision Making - Diagnostics Imaging Results: Imaging Impressions Chest X-Ray 08/20/17 11:52 Impression: 1. Suspect airways disease with no superimposed pneumonia identified. 2. See above report for additional findings. ED Course/Re-evaluation: In the emergency department I discussed possible etiologies with the patient. I answered all her questions. An IV was placed. Laboratory studies, chest x- ray and EKG were ordered. Patient was noted to be tachycardic and have a low oxygen saturation[place] [id number]. Patient is mildly anemic. Her chemistry panel is unremarkable. Troponin is negative. Alk phos is mildly elevated. Lipase is elevated into the 300s Sinus tachycardia at 108 a.m. Right bundle branch block Chest x-ray: No acute disease noted Patient's urine shows positive red cells and white cells. There is trace leuk esterase. On recheck the patient was feeling much better. She had no complaints of pain. The patient's son confirms that they have 24 hr care at home. I discussed the results. Patient will be started on Keflex for possible UTI. She is given warnings prior to leaving. She will return with worsening symptoms. Differential Diagnosis: My differential includes but is not limited to urinary tract infection, hematuria, pyelonephritis, bacteremia, sepsis, pneumonia, bronchitis, viral illness - Data Points Laboratory Results: Laboratory Results 08/20/17 11:49 08/20/17 11:49 08/20/17 08/20/17 08/20/17 13:11 12:16 11:49 WBC RBC Hgb Hct MCV MCH MCHC RDW Plt Count MPV Neut % (Auto) Lymph % (Auto) [place] % (Auto) Eos % (Auto) Baso % (Auto) Nucleat RBC Rel Count Absolute Neuts (auto) Absolute Lymphs (auto) Absolute Monos (auto) Absolute Eos (auto) Absolute Basos (auto) Absolute Nucleated RBC Immature Gran % Immature Gran # Sodium 140 mEq/L mEq/L (135-145) Potassium 4.8 mEq/L mEq/L (3.3-5.0) Chloride 102 mEq/L mEq/L (97-110) Carbon Dioxide 25 mEq/l mEq/l (22-31) Anion Gap 13 mEq/L mEq/L (8-16) BUN 24 mg/dL H mg/dL (7-23) Creatinine 0.5 mg/dL L mg/dL (0.6-1.0) Estimated GFR > 60 Glucose 133 mg/dL H mg/dL (70-100) Calcium 9.4 mg/dL mg/dL (8.5-10.4) Total Bilirubin 0.3 mg/dL mg/dL (0.1-1.4) Conjugated Bilirubin 0.2 mg/dL mg/dL (0.0-0.5) Unconjugated Bilirubin 0.1 mg/dL mg/dL (0.0-1.1) AST 20 IU/L IU/L (14-46) ALT 26 IU/L IU/L (9-52) Alkaline Phosphatase 166 IU/L H IU/L (38-126) POC Troponin I 0.02 ng/mL ng/mL (0.00-0.08) NT-Pro-B Natriuret Pep 107 pg/mL pg/mL (0-450) Total Protein 6.8 g/dL g/dL (6.3-8.2) Albumin 4.0 g/dL g/dL (3.5-5.0) Lipase 358 IU/L H IU/L (23-300) Urine Color RED Urine Appearance MODERATELY TURBID Urine pH 6.0 (5.0-7.5) Ur Specific [place] 1.013 (1.002-1.030) Urine Protein 2+ H (NEGATIVE) Urine Ketones NEGATIVE (NEGATIVE) Urine Blood 3+ H (NEGATIVE) Urine Nitrate NEGATIVE (NEGATIVE) Urine Bilirubin NEGATIVE (NEGATIVE) Urine Urobilinogen NEGATIVE EU EU (0.2-1.0) Ur Leukocyte Esterase TRACE H (NEGATIVE) Urine RBC 50-182 /hpf H /hpf (0-3) Urine WBC 50-182 /hpf H /hpf (0-3) Ur Epithelial Cells NONE SEEN /lpf /lpf (NONE-1+) Urine Bacteria 4+ /hpf H /hpf (NONE SEEN) Urine Yeast PRESENT /hpf /hpf (NONE SEEN) Urine Glucose NEGATIVE (NEGATIVE) 08/20/17 11:49 WBC 17.52 10^3/uL H 10^3/uL (3.80-9.50) RBC 4.18 10^6/uL 10^6/uL (4.18-5.33) Hgb 12.7 g/dL g/dL (12.6-16.3) Hct 38.3 % % (38.0-47.0) MCV 91.6 fL fL (81.5-99.8) MCH 30.4 pg pg (27.9-34.1) MCHC 33.2 g/dL g/dL (32.4-36.7) RDW 14.6 % % (11.5-15.2) Plt Count 406 10^3/uL H 10^3/uL (150-400) MPV 9.1 fL fL (8.7-11.7) Neut % (Auto) 91.1 % H % (39.3-74.2) Lymph % (Auto) 4.1 % L % (15.0-45.0) [place] % (Auto) 3.9 % L % (4.5-13.0) Eos % (Auto) 0.1 % L % (0.6-7.6) Baso % (Auto) 0.2 % L % (0.3-1.7) Nucleat RBC Rel Count 0.0 % % (0.0-0.2) Absolute Neuts (auto) 15.97 10^3/uL H 10^3/uL (1.70-6.50) Absolute Lymphs (auto) 0.71 10^3/uL L 10^3/uL (1.00-3.00) Absolute Monos (auto) 0.68 10^3/uL 10^3/uL (0.30-0.80) Absolute Eos (auto) 0.01 10^3/uL L 10^3/uL (0.03-0.40) Absolute Basos (auto) 0.04 10^3/uL 10^3/uL (0.02-0.10) Absolute Nucleated RBC 0.00 10^3/uL 10^3/uL (0-0.01) Immature Gran % 0.6 % % (0.0-1.1) Immature Gran # 0.11 10^3/uL H 10^3/uL (0.00-0.10) Sodium Potassium Chloride Carbon Dioxide Anion Gap BUN Creatinine Estimated GFR Glucose Calcium Total Bilirubin Conjugated Bilirubin Unconjugated Bilirubin AST ALT Alkaline Phosphatase POC Troponin I NT-Pro-B Natriuret Pep Total Protein Albumin Lipase Urine Color Urine Appearance Urine pH Ur Specific [place] Urine Protein Urine Ketones Urine Blood Urine Nitrate Urine Bilirubin Urine Urobilinogen Ur Leukocyte Esterase Urine RBC Urine WBC Ur Epithelial Cells Urine Bacteria Urine Yeast Urine Glucose Medications Given: Discontinued Medications Sodium Chloride (Ns) 500 mls @ 0 mls/hr IV EDNOW ONE; Wide Open PRN Reason: Protocol Stop: 06/16/18 11:52 Last Admin: 08/20/17 12:26 Dose: 500 mls Point of Care Test Results: Chemistry 08/20/17 12:16 POC Troponin I 0.02 ng/mL ng/mL (0.00-0.08) Departure - Departure Disposition: Home, Routine, Self-Care Clinical Impression: Hypoxia Hematuria Qualifiers: Hematuria type: gross Qualified Code(s): R31.0 - Gross hematuria Condition: Good Instructions: Hematuria (ED), Urinary Tract Infection in Women (ED) Additional Instructions: Take your entire course of antibiotics. Return with increased blood, fever, abdominal pain, vomiting or any other concerns. You need close follow-up with her primary care physician. He should be seen on Tuesday for recheck. You been given contact for the on-call outpatient physician if you are unable to get ahold of your physician. Referrals: NONE *PRIMARY CARE P,. [Primary Care Provider] - As per Instructions Fei Norton MD [Medical Doctor] - 2-3 days without fail Prescriptions: Cephalexin [Keflex (*)] 250 mg PO QID 7 Days cap Cephalexin [Keflex (*)] 500 mg PO QID #12 cap
[2017-08-20 12:06] LABS: PLATELET COUNT 406 10^3/uL (150-400)
--- NOTE | 2017-08-20 12:06 | CPEKG ---
Heart Rate: 108 RR Interval: 556 P-R Interval: 120 QRSD Interval: 114 QT Interval: 340 QTC Interval: 456 P [place]: 66 QRS [place]: 51 T Wave [place]: 42 EKG Severity - ABNORMAL ECG - EKG Impression: SINUS TACHYCARDIA EKG Impression: INCOMPLETE RIGHT BUNDLE BRANCH BLOCK Electronically Signed By: aSul Medina 21-Aug-2017 07:36:33
[2017-08-20] MEDS ORDERED: CEPHALEXIN 250 MG CAP PO ONE (15:10)
[2017-08-20 15:29] VITALS: BP 113/57
== END 2017-08-20 15:41 | disposition home or self-care (01) ==
DX: R31.0 Gross hematuria (principal); R09.02 Hypoxemia; I10 Essential (primary) hypertension; E86.9 Volume depletion, unspecified; Z79.82 Long term (current) use of aspirin; Z86.73 Personal history of transient ischemic attack (TIA), and cerebral infarction without residual deficits
CPT/HCPCS: 84484-PO

== ENCOUNTER 2017-09-11 07:56 | Emergency (ER) | payer OTHER ==
--- NOTE | 2017-09-11 08:09 | EDPHY ---
H & P Stated Complaint: diarrhea Time Seen by Provider: 09/11/17 08:20 HPI/ROS: Chief Complaint: Diarrhea HPI: 82-year-old woman with a complex recent medical history. Patient had a fall in July and sustained intracranial hemorrhage. 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 She has also been suffering from recurrent urinary tract infections. She was here on the of last month and started on Keflex. Patient was started on another antibiotic last week by her urologist. She is coming in this morning complaining of fatigue and diarrhea. Per her son she has been having intermittent diarrhea for the last 2-3 days. They have been struggling with constipation and diarrhea cycle. He took off her MiraLax 2 days ago. Yesterday she had a large loose brown bowel movement. Today she has had several small loose stools. No large taiwo or bloody diarrhea. She has been drinking fluids but states she is feeling fatigued. Her son is taken off work and is her full-time care provider at this time. She denies any fevers or chills. No falls. No abdominal pain. No nausea or vomiting. She completed a course of antibiotics about 3 days ago. The diarrhea is not profuse. It is not overtly foul-smelling. ROS: 10 point Review of Systems is negative except as noted in the HPI. Social History: No smoking, no alcohol, no recreational drug use Family History: non-contributory Physical Exam: Gen: Awake, Alert, No Distress HEENT: Nose: no rhinorrhea Eyes: PERRLA, EOMI Mouth: Moist mucosa Neck: Supple, no JVD Chest: nontender, lungs clear to auscultation Heart: S1, S2 normal, no murmur Abd: Soft, non-tender, no guarding Back: no CVA tenderness, no midline tenderness Ext: no edema, non-tender Skin: no rash Neuro: CN II-XII intact, Sensation grossly intact, Strength 5/5 in bilateral upper and lower extremities - Personal History Current Tetanus/Diphtheria Vaccine: Yes Current Tetanus Diphtheria and Acellular Pertussis (TDAP): Yes - Medical/Surgical History Hx Asthma: No Hx Chronic Respiratory Disease: No Hx Diabetes: No Hx Cardiac Disease: No Hx Renal Disease: No Hx Cirrhosis: No Hx Alcoholism: No Hx HIV/AIDS: No Hx Splenectomy or Spleen Trauma: No Other PMH: RA, HTN, CVA 07/22, - Social History Smoking Status: Never smoked Constitutional: Initial Vital Signs Temperature (C) 36.4 C 09/11/17 08:03 Heart Rate 113 H 09/11/17 08:03 Respiratory Rate 20 09/11/17 08:03 Blood Pressure 143/65 H 09/11/17 08:03 O2 Sat (%) 95 09/11/17 08:03 O2 Delivery Mode Room Air Allergies/Adverse Reactions: No Known Allergies Allergy (Unverified 09/11/17 08:01) Home Medications: Medication Instructions Recorded Acetaminophen [Tylenol 325mg (*)] 650 mg PO Q4HRS PRN tab 07/22/17 Aspirin EC [Aspirin EC 81 mg (*)] 81 mg PO DAILY tab 08/15/17 Atorvastatin Calcium [Lipitor 20 20 mg PO HS #30 tab 08/15/17 mg (*)] C/E/Zn/Cu/OM3/DHA/EPA/LUT/ZEAX 2 each PO BIDMEAL cap 08/15/17 [Preservision Areds 2 Softgel] Latanoprost 0.005% [Xalatan 0.005% 1 drops EACHEYE HS #1 opht.btl 08/15/17 (*)] Lisinopril [Zestril 10 mg (*)] 10 mg PO DAILY #30 tab 08/15/17 Timolol 0.25% [TIMOPTIC 0.25% (*)] 1 drops EACHEYE DAILY #1 opht.btl 08/15/17 levETIRAcetam [Keppra 500 mg (*)] 500 mg PO BID #60 tab 08/15/17 predniSONE 0.5 mg PO DAILY #15 tab 08/15/17 predniSONE 5 mg PO DAILY #30 tab 08/15/17 Medical Decision Making ED Course/Re-evaluation: Patient is improved. She is ambulating unassisted emergency department. She has had a very small loose stools here but no large amounts of taiwo diarrhea. She does not have C diff. No indication for inpatient management at this time. Will discharge with outpatient follow-up. Case management has seen the patient. They provided resources for further outpatient care. - Data Points Laboratory Results: Laboratory Results 09/11/17 08:10 09/11/17 08:10 09/11/17 09/11/17 08:10 08:10 WBC 11.17 10^3/uL H 10^3/uL (3.80-9.50) RBC 4.03 10^6/uL L 10^6/uL (4.18-5.33) Hgb 12.1 g/dL L g/dL (12.6-16.3) Hct 36.5 % L % (38.0-47.0) MCV 90.6 fL fL (81.5-99.8) MCH 30.0 pg pg (27.9-34.1) MCHC 33.2 g/dL g/dL (32.4-36.7) RDW 14.5 % % (11.5-15.2) Plt Count 352 10^3/uL 10^3/uL (150-400) MPV 8.9 fL fL (8.7-11.7) Neut % (Auto) 78.3 % H % (39.3-74.2) Lymph % (Auto) 6.0 % L % (15.0-45.0) [place] % (Auto) 12.2 % % (4.5-13.0) Eos % (Auto) 2.8 % % (0.6-7.6) Baso % (Auto) 0.3 % % (0.3-1.7) Nucleat RBC Rel Count 0.0 % % (0.0-0.2) Absolute Neuts (auto) 8.75 10^3/uL H 10^3/uL (1.70-6.50) Absolute Lymphs (auto) 0.67 10^3/uL L 10^3/uL (1.00-3.00) Absolute Monos (auto) 1.36 10^3/uL H 10^3/uL (0.30-0.80) Absolute Eos (auto) 0.31 10^3/uL 10^3/uL (0.03-0.40) Absolute Basos (auto) 0.03 10^3/uL 10^3/uL (0.02-0.10) Absolute Nucleated RBC 0.00 10^3/uL 10^3/uL (0-0.01) Immature Gran % 0.4 % % (0.0-1.1) Immature Gran # 0.05 10^3/uL 10^3/uL (0.00-0.10) Sodium 135 mEq/L mEq/L (135-145) Potassium 4.2 mEq/L mEq/L (3.3-5.0) Chloride 105 mEq/L mEq/L (97-110) Carbon Dioxide 22 mEq/l mEq/l (22-31) Anion Gap 8 mEq/L mEq/L (8-16) BUN 11 mg/dL mg/dL (7-23) Creatinine 0.4 mg/dL L mg/dL (0.6-1.0) Estimated GFR > 60 Glucose 106 mg/dL H mg/dL (70-100) Calcium 9.2 mg/dL mg/dL (8.5-10.4) Microbiology Results: MICROBIOLOGY 09/11/17 09:25 Stool Gastrointestinal Tract Panel (PCR) - Final No Organism Detected Medications Given: Discontinued Medications Sodium Chloride (Ns) 500 mls @ 0 mls/hr IV ONCE ONE; Wide Open PRN Reason: Protocol Stop: 09/11/17 08:21 Last Admin: 09/11/17 08:31 Dose: 500 mls Departure - Departure Disposition: Home, Routine, Self-Care Clinical Impression: Diarrhea, Dehydration Condition: Good Instructions: Dehydration (ED), Acute Diarrhea (ED) Additional Instructions: Follow up with primary care physician in 2-3 days for further evaluation. Referrals: Quita Gutierrez MD [Primary Care Provider] - As per Instructions
[2017-09-11] MEDS ORDERED: NS 500 ML IV ONE (08:20)
[2017-09-11 08:33] LABS: PLATELET COUNT 352 10^3/uL (150-400)
[2017-09-11 12:20] VITALS: BP 122/59
--- NOTE | 2017-09-11 14:22 | ASMTCMCOM ---
CM Note CM Note Notes: Pt presented to the Emergency Department with diarrhea. History is extensive and includes a recent fall with an intracranial hemorrhage (07/2017). Pt was discharged from [facility] to inpt rehab where she had an embolic stroke. SInce that time she has had frequent UTI's. Pt is currently living in her own condo with her son's 24/7 assistance. Asked to see pt by Dr. Adan and Adonis, RN. Met with pt and pt's son, Susi. Spent approximately 45 minutes with family providing support and coordinating care. Per Susi, pt was discharged from rehab in late July and went home with approximately one month of private duty 24/7 care with [facility]. During this time the son spent approximately $20,000. After recognizing the cost was not sustainable, the son took a temporary leave from work and has been providing 24/7 care for the pt since. The son needs to return to work in October and is requesting assistance with further services and care for his mother. Discussed option of [facility] vs assisted living. Per Susi, he provides assistance with almost all ADL's except for eating and drinking. The pt requires assistance dressing, toileting, ambulating, and positioning. He and the pt would ideally like PT/OT services periodically and would like her to have 24/7 care. Son interested in doing a two-year paydown program, so pt can access Medicaid in the next few years. Update provided to Dr. Adan and Adonis, RN. Per Dr. Adan, "pt does not have C-diff and does not really meet criteria for an inpt admission." Call placed to Corine at [facility] to discuss options. Per Corine, if the pt has had three midnights in the past 30 days she could qualify for a SNF admission. Pt has not had three consecutive midnights and does not meet criteria for SNF. Discussed residential care (LTC) options with Corine. [facility] has two private rooms available for immediate occupancy. Private pay cost for a private room is $10,122.00/month. Private pay cost for a semi-private room is $8,294.00/month. [facility] does not require a two year spend down. Corine available to discuss further with pt and family. Updates provided to pt and son. Pt and son provided with a [place] [employer], specific facility cost information obtained from [employer], a [employer] flyer and a business card. Encouraged son to call various facilities to discuss pay down programs and options; also encouraged son to tour facilities. Support provided. Pt and son grateful for resources; son to begin facility research on Tuesday09/12/17. CM available for any further issues or concerns. Date Signed: 09/11/2017 02:22 PM Electronically Signed By:Tamika Leyva RN
== END 2017-09-11 12:18 | disposition home or self-care (01) ==
DX: R19.7 Diarrhea, unspecified (principal); E86.0 Dehydration; E86.9 Volume depletion, unspecified; I10 Essential (primary) hypertension; Z79.82 Long term (current) use of aspirin; Z86.73 Personal history of transient ischemic attack (TIA), and cerebral infarction without residual deficits